=== PATIENT | female | born 1990 | race Caucasian/White ===

== ENCOUNTER 2024-02-24 15:36 | Outpatient (OUT) | payer BC, SELFPAY ==
[2024-02-24 16:03] LABS: HCG Qualitative POSITIVE (NEGATIVE)
[2024-02-24 16:04] LABS: Internal Control Within Normal Limits
[2024-02-24 16:49] LABS: HCG Quantitative 23627 mIU/mL
== END 2024-02-24 15:37 | disposition home or self-care (01) ==
PROVIDERS: PCP Nurse Practitioner Family; Visit Provider Nurse Practitioner Family
DX: N91.2 Amenorrhea, unspecified (principal)
CPT/HCPCS: 36415; 84702; 84703

== ENCOUNTER 2025-03-15 14:39 | Outpatient (OUT) | payer BC, SELFPAY ==
--- OUTSIDE RECORDS SUMMARY | 2025-03-15 14:43 | XMS_ITS | Clinical Summary ---
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 Name Role Phone Amy Kingsley DIRECTOR OF INSTITUTIONAL RESEARCH Primary Care Provider Allergies No known active allergies Medications MedicationSigDispense QuantityRefillsLast FilledStart DateEnd DateStatus albuterol HFA 90 mcg/act inhaler INHALE 2 PUFFS BY MOUTH 4 TIMES A DAY MINOMU4803/23/2023ctive MV & Min w/FA-DHA ( GUMMIES PO) Take by mouthActive triamcinolone (Kenalog) 0.1 % cream Indications:Vaginal dischargeApply topically 2 (two) times a day 30 g ctive nystatin (Mycostatin) 720990 UNIT/GM powder Indications:IntertrigoApply topically 3 (three) times a day 15 g ctive nystatin (Mycostatin) cream Indications:IntertrigoApply topically 2 (two) times a day 30 g ctive ferrous sulfate (Fe Tabs) 325 (65 Fe) MG EC tablet Indications:Anemia, unspecified typeDo not crush, chew, or split. 30 tablet 5Active norgestimate-ethinyl estradiol (Sprintec 28) 0.25-35 MG-MCG tablet Indications:Encounter for contraceptive management, unspecified typeTake 1 tablet by mouth Daily 28 tablet 121/597119ctive Encounters DateTypeDepartmentCare ZidiEvowqerqjym65/15/2025Telephone [facility] [address] [place] [address] Renita Funk MD 12/15/2024 10:45 AM EDTOffice Visit [facility] [place] [facility] [address] [place] [address] Renita Funk MD Acute postoperative pain; Incisional pain12/15/2024Travelfrom Last 3 Months Family History Medical HistoryRelationNameCommentsDiabetesFatherGeorgeHypertension (CMS/HCC) FatherGeorgeCancerMaternal GrandfatherMarvinCOPDMaternal GrandmotherAsthmaMother RobinCancerMotherRobinDiabetesMotherRobinLung cancerMotherRobinHeart disease Paternal GrandfatherCancerPaternal GrandmotherInathyroid issuesPaternal GrandmotherInaRelationNameStatusCommentsFatherGeorgeMaternal GrandfatherMarvin Maternal GrandmotherMotherRobinPaternal GrandfatherPaternal GrandmotherIna Social History Tobacco UseTypesPacks/DayYears UsedDateSmoking Tobacco: NeverSmokeless Tobacco: Never Tobacco Cessation:Counseling Given: Not Answered Alcohol UseStandard Drinks/WeekCommentsNot Currently0 (1 standard drink = 0.6 oz pure alcohol)Caffeine intake: 1 soda dailyEdinburgh Depression Scale AnswerDate RecordedEdinburgh Depression Scale Rwccp462The thought of harming myself has occurred to me.Never11/10/2024CommentsNo Sex and Gender InformationValueDate RecordedSex Assigned at BirthNot on file Legal UjlCilobg42/14/2024 8:08 AM ESTGender IdentityNot on fileSexual OrientationNot on fileOccupationIndustryJob Start DateJob End DateNot on fileNot on fileNot on fileNot on file Last Filed Vital Signs Vital SignReadingTime TakenCommentsBlood Qxohapph965/72012/15/2024 10:56 AM EDT Pulse--Temperature--Respiratory Rate--Oxygen Saturation--Inhaled Oxygen Concentration--Zlbwby280 kg (230 lb)12/15/2024 10:56 AM TYOOrexzy509.7 cm (5' 8 )12/15/2024 10:56 AM EDTBody Mass Index34.9709/06/2024 10:56 AM EDT Plan of Treatment DateTypeDepartmentCare Team (Latest Contact Info)Puekwyovqpu27/16/2025 2:30 PM ESTOffice Visit [facility] [place] [facility] [address] [place] [address] Renita Funk MD [address] [place] [address] Health MaintenanceDue DateLast DoneCommentsPap Smear2011Cervical Cancer Mnrauivkn72/26/2020HPV/Cempgi3802/07/2020COVID-19 Vaccine ( season) 509/12/2021, 02/07/2021, 05/24/2020, Additional history existsInfluenza Vaccine (#1)/, 01/13/2023, 01/18/2022, Additional history existsPneumococcal Vaccine: Pediatrics (0 to 5 Years) and At-Risk Patients (6 to 64 Years)Aged OutNo longer eligible based on patient's age to complete this topic Insurance Care Teams Team MemberRelationshipSpecialtyStart DateEnd Date Amy Kingsley NP [address] [place] [id number] [facility] Ijk[facility]lnem74/21/24
--- OUTSIDE RECORDS SUMMARY | 2025-03-15 14:49 | XMS_ITS | CCD ---
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 Name Role Phone REQUEST, NONE LISTED Admitting Unavailable CHEYENNE PABLO Consulting Unavailable REQUEST, NONE LISTED Attending Unavailable REQUEST, NONE LISTED Attending Unavailable REQUEST, NONE LISTED Consulting Unavailable REQUEST, NONE LISTED Admitting Unavailable Mell Krysta Unavailable Diogenes Payton Unavailable Sancho SHANNON, Amy Lorenzana Primary Care Provider Amy Kingsley APRN Primary Care Provider Renita Young MD Attending Provider [phone] Renita Young MD Referring Provider [phone] NON STAFF Primary Care Provider Unavailjak e Renita Young MD Admit Provider Hannah Jimenez MD Referring Provider Mani Rowell MD Attending Provider Renita Young MD Attending Provider Amy Kingsley APRN Primary Care Provider Kassandra Pathak MD Attending Provider [phone] Amy Kingsley Primary Care Unavailable Mani Rowell Admitting Unavailable Mani Rowell Attending Unavailable Kassandra Pathak Admitting Unavailable Kassandra Pathak Attending Unavailable Amy Kingsley Primary Care Unavailable Amy Kingsley Primary Care Unavailable Renita Young Admitting Unavailable Renita Young Attending Unavailable Renita Young Referring Unavailable Amy Kingsley Primary Care Unavailable Hannah Jimenez Referring Unavailable Young, Penola P Attending Unavailable Young, Penola P Admitting Unavailable NON STAFF Primary Care Unavailable Hector, Penola Margarita Attending Unavailable Hector, Penola P Admitting Unavailable Hector, Penola P Admitting Unavailable Hector, Penola P Attending Unavailable HECTOR, PENOLA P Attending Unavailable HECTOR, PENOLA P Attending Unavailable HECTOR, PENOLA P Attending Unavailable HECTOR, PENOLA P Attending Unavailable HECTOR, PENOLA P Attending Unavailable HECTOR, PENOLA P Attending Unavailable HECTOR, PENOLA P Attending Unavailable HECTOR, PENOLA P Attending Unavailable HECTOR, PENOLA P Attending Unavailable HECTOR, PENOLA P Attending Unavailable HECTOR, PENOLA P Referring Unavailable HECTOR, PENOLA P Attending Unavailable HECTOR, PENOLA P Attending Unavailable HECTOR, PENOLA P Attending Unavailable HECTOR, PENOLA P Attending Unavailable HECTOR, PENOLA P Attending Unavailable HECTOR, PENOLA P Attending Unavailable HECTOR, PENSAY P Attending Unavailable Medications Current Medications MedicationDrug Class(es)DatesSig (Normalized)Sig (Original)[id number] 200 actuat albuterol 0.09 mg/actuat metered dose inhaler (20 sources)beta2-Adrenergic AgonistStart: 13-50-6597uqol 2 puff(s) by mouth four times daily as neededalbuterol HFA 90 mcg/act inhaler INHALE 2 PUFFS BY MOUTH 4 TIMES A DAY NEEDED 03/23/2023 ActiveStart: 88-67-6052lipe 2 puff(s) by inhalation four times daily as neededAlbuterol Sulfate HFA 108 (90 Base) MCG/ACT 2 puffs Inhalation 4 times a day prn Mar, Activecephalexin 500 mg oral capsule (4 sources)Cephalosporin AntibacterialStart: 10-13-2024 End: 32-99-0939rdqxqiqbgw (Keflex) 500 MG capsule Indications: Acute postoperative pain Take 1 capsule (500 mg) bymouth in the morning and 1 capsule (500 mg) at noon and 1 capsule (500 mg) in the evening and 1 capsule (500 mg) before bedtime. Do all this for 10 days. 40 capsule 10/13/2024 10/23/2024 Active 12 hr dextromethorphan polistirex 6 mg/ml extended release suspension (1 source)Uncompetitive Z-voastx-R-aspartate Receptor Antagonist, Sigma-1 Agonisttake 10 mL by mouth every twelve hours as neededDelsym 30 MG/5ML 10 mL as needed Orally every 12 hrs Activedoxycycline hyclate 100 mg oral tablet (1 source)Tetracycline-class DrugStart: 36-81-7208zhxk 1 tablet by mouth every twelve hoursDoxycycline Hyclate 100 MG 1 tablet Orally Twice a day for 10 day(s) Mar, Activeethinyl estradiol 0.035 mg / norgestimate 0.25 mg oral tablet (1 source)Progestin, EstrogenStart: 01-26-2025 End: 97-17-4443liea 1 tablet by mouth once dailynorgestimate-ethinyl estradiol (Sprintec 28) 0.25-35 MG-MCG tablet Indications: Encounter for contraceptive management, unspecified type Take 1 tablet by mouth Daily 28 tablet 12 01/26/2025 01/26/2026 Activeferrous sulfate 325 mg oral tablet (20 sources)Start: 63-96-4618kncx 1 tablet by mouth once dailyStart: 07-13-2024 ferrous sulfate (Fe Tabs) 325 (65 Fe) MG EC tablet Indications: Anemia, unspecified type Do not crush, chew, or split. 30 tablet 11 07/13/2024 Active ibuprofen 800 mg oral tablet (2 sources)Nonsteroidal Anti-inflammatory DrugStart: 57-21-4850otrjixytwybhu 0.35 mg oral tablet (5 sources)Start: 11-10-2024 End: 78-34-8228ktjo 1 tablet by mouth once dailynorethindrone (Micronor) 0.35 MG tablet Indications: General counseling and advice on contraceptivemanagement Take 1 tablet (0.35 mg) by mouth Daily 28 tablet 11 11/10/2024 01/26/2025 Discontinuednystatin 100 unt/mg topical powder (20 sources)Polyene AntifungalStart: 05-11-2024 End: 64-15-2110eozcbclc (Mycostatin) cream Indications: Intertrigo Apply topically 2 (two) times a day 30 g 2 05/11/2024 05/11/2025 ActiveStart: 05-11-2024 End: 09-05-1959ferpghaa (Mycostatin) 424097 UNIT/GM powder Indications: Intertrigo Apply topically 3 (three) timesa day 15 g 05/11/2024 05/11/2025 ActivepredniSONE 20 mg oral tablet (1 source)Start: 79-26-0214risp 2 tablets by mouth once daily at mealtime predniSONE 20 MG 2 tablets with food or milk Orally Once a day for 5 days Mar, ActivePrenatal Oaydyiym-Lts-Qo-Fa 1 mg tablet (2 sources)Start: 88-11-0168luja 1 tablet by mouth oncePrenatal MV & Min w/FA- DHA ( GUMMIES PO) (20 sources) MV & Min w/FA-DHA ( GUMMIES PO) Take by mouth Activetriamcinolone acetonide 1 mg/ml topical cream (20 sources)CorticosteroidStart: 19-96-7579hsfdtukufhnqt (Kenalog) 0.1 % cream Indications: Vaginal discharge Apply topically 2 (two) times a day 30 g 2 03/29/2024 Active Completed/Discontinued Medications MedicationDrug Class(es)DatesSig (Normalized)Sig (Original)rho(d) immune globulin, human 1500 unt prefilled syringe (2 sources)Human Immunoglobulin GStart: 06-15-2024 End: 09-04-4536lft,D, immune globulin (RhoGAM Ultra-Filtered Plus) 1500 units injection Indications: Blood typing encounter , Rh negative status during in second trimester Inject 1 mL (1,500 Units) into the shoulder, thigh, or buttocks 1 (one) time for 1 dose 300mcg as directed per rhogam workup 1 mL 06/15/2024 06/15/2024 Problems Problem ClassificationProblemDateDocumented DateEpisodic/Chronic Administrative/social admission (14 sources)Patient encounter status; Translations: [Encounter for blood-alcohol and blood-drug test]75-77-9943LzvwkvquDawheji obstructive pulmonary disease and bronchiectasis (1 source)Bronchitis, not specified as acute or chronicEpisodicComplications of surgical procedures or medical care (2 sources)Wound pain ; Translations: [Other postprocedural complications of skin and subcutaneous tissue]73-13-0359RvhvjqjsHduufijiuz and other anemia (16 sources)Anemia; Translations: [Anemia, unspecified]55-46-1434Nvuiuklk Hemorrhage during ; abruptio placenta; placenta previa (7 sources)Bleeding from female genital tract during ; Translations: [Antepartum hemorrhage, unspecified, unspecified trimester]47-49-9024Klkwhiht Menstrual disorders (4 sources)Amenorrhea; Translations: [Amenorrhea, unspecified]16-33-7478Qhgxmez Other complications of ; puerperium affecting management of mother (1 source)Hypogalactia; 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]Onset: 86-48-9437Byzpfwvp Other complications of (18 sources)RhD negative; Translations: [Other specified related conditions, second trimester]76-20-0733IkjgmvqsWjwqg complications of (1 source)Other abnormal findings on screening of mother; Translations: [Other abnormal findings onantenatal screening of mother]Onset: 46-85-9093NfzjjkinWntfg ear and sense organ disorders (1 source)Impacted cerumen, left earEpisodicOther female genital disorders (2 sources)Vaginal discharge; Translations: [Other specified noninflammatory disorders of vagina]75-51-5485AqofhjelOxwua inflammatory condition of skin (20 sources)Intertrigo; Translations: [Erythema intertrigo]17-39-0590Meobmfxz Other nervous system disorders (8 sources)Acute postoperative pain; Translations: [Other acute postprocedural pain]00-54-5900QnjaslcmUbxnn and delivery including normal (20 sources)Normal ; Translations: [Encounter for supervision of normal first , first trimester]Onset: 644447-50-7293BwqbrnhcJaxrx screening for suspected conditions (not mental disorders or infectious disease) (1 source)Encounter for screening for Streptococcus B; Translations: [Encounter for screening for Streptococcus B]Onset: 05-61-1156Fjtioivk Residual codes; unclassified (2 sources)Gestation period, 12 weeks; Translations: [12 weeks gestation of ]75-00-6844ZqmxykzdRbvsbbwl codes; unclassified (2 sources)Gestation period, 16 weeks; Translations: [16 weeks gestation of ]86-40-3526YifvpuerJnqrexjn codes; unclassified (2 sources)Gestation period, 18 weeks; Translations: [18 weeks gestation of ]62-74-0179DbslfsbmGrmoixtp codes; unclassified (2 sources)Gestation period, 19 weeks; Translations: [19 weeks gestation of ]36-17-7056UgludidmAfbhmnmw codes; unclassified (2 sources)Gestation period, 23 weeks; Translations: [23 weeks gestation of ]97-51-2378XlmalnneHftmnmbx codes; unclassified (2 sources)Gestation period, 27 weeks; Translations: [27 weeks gestation of ]50-69-4933TwcljuhyDfsizrpc codes; unclassified (2 sources)Gestation period, 30 weeks; Translations: [30 weeks gestation of ]31-12-6262FelowxbiWryyzdzl codes; unclassified (2 sources)Gestation period, 32 weeks; Translations: [32 weeks gestation of ]41-20-7998WjkyjtneEogczbnb codes; unclassified (2 sources)Gestation period, 34 weeks; Translations: [34 weeks gestation of ]79-60-5133PrhhfqeeIzvanozq codes; unclassified (5 sources)Gestation period, 36 weeks; Translations: [36 weeks gestation of ]03-48-3910AbsuboftTggdsdau codes; unclassified (3 sources)Gestation period, 37 weeks; Translations: [37 weeks gestation of ]44-05-7208WgfrhjtrBnourkei codes; unclassified (7 sources)Gestation period, 39 weeks; Translations: [39 weeks gestation of ]65-83-0439PgazeigsGrcqjsej codes; unclassified (2 sources)Gestation period, 7 weeks; Translations: [Less than 8 weeks gestation of ]41-42-7170WrsuduftDlqxwcoe codes; unclassified (1 source)39 weeks gestation of ; Translations: [39 weeks gestation of ]Onset: 85-24-1473Czgzwdwm Results Test NameValueInterpretationReference RangeFacilityBasophils [#/volume] in Blood by Automated countOrdered By: HUI Young on 38-04-6369Dqvzbpmpl (Bld) [#/Vol]0.1 10*3/uLNormal0.0-0.2FBarnesville HospitalComment on above:Result Comment: PERFORMED BY: [facility] [address] [place] [address] PATHOLOGIST STUDIO SALES ASSOCIATE ELINA DURBIN M.D.Performed By: #### CBC #### [facility] [address] [place] [id number] USABasophils/100 leukocytes in Blood by Automated count Ordered By: HUI Young on 76-01-6807Mnsghrtee/100 WBC (Bld)0.6 %Normal .[facility] CenterComment on above:Performed By: #### CBC #### [facility] [address] [id number] USACBC W Auto Differential panel (Bld)on 61-27-0033Fmzusmlmw (Bld) [#/Vol]0.1 10*3/uL0.0 - 0.2 10*3/uLNOMS HealthcareBasophils/100 WBC Manual cnt (Syn fld)0.6 %.[facility] Wal[facility] LawnEosinophils (Bld) [#/Vol]0 10*3/uL0.0 - 0.45 10*3/uLNOMS HealthcareEosinophils/100 WBC Manual cnt (Syn fld)0 %.[facility] Wal[facility] LawnErythrocyte distribution width (RBC) [Ratio]14.7 %11.9 - 15.3 %[facility] LawnHematocrit (Bld) [Volume fraction]35.8 %34.0 - 46.4 %[facility] Hemoglobin (Bld) [Mass/Vol]12.1 g/dL11.8 - 15.4 g/dLCox Walnut Lawn Interpretation and review of laboratory resultsAbnormalCox Walnut Lawn Lymphocytes (Bld) [#/Vol]1.1 10*3/uL1.00 - 4.8 10*3/uLNOSt. Louis VA Medical Center Lymphocytes/100 WBC Manual cnt (Syn fld)6.3 %.[facility] HospitalH (RBC) [Entitic mass]29.7 pg24.7 - 34.3 pgCox Walnut LawnMCHC (RBC) [Mass/Vol]33.7 g/dL32.0 - 35.0 g/dLSaint Luke's East HospitalV (RBC) [Entitic vol]88.2 fL80 - 100 fLNOMS Healthcare Monocytes (Bld) [#/Vol]0.4 10*3/uL0.0 - 0.8 10*3/uLNOMS Healthcare Monocytes+Macrophages/100 WBC Manual cnt (Syn fld)2.3 %.[facility] Neutrophils (Bld) [#/Vol]16.5 10*3/uLHigh1.8 - 7.7 10*3/uLNOMS Healthcare Neutrophils/100 WBC Manual cnt (Syn fld)90.8 %.NOMS HealthcareNRBC0.1 /100{WBC}0 - 0.5 /100{WBC}NOMS HealthcarePlatelet mean volume (Bld) [Entitic vol]11.1 fL High6.3 - 10.7 fLNOSC HealthcarePlatelets (Bld) [#/Vol]206 10*3/uL150 - 450 10*3/uLNOSC HealthcareRBC LM.HPF (Urine sed) [#/Area]4.06 10*6/uL3.60 - 5.00 10*6/uLNOMS HealthcareWBC (Bld) [#/Vol]18.1 10*3/uLHigh3.8 - 11.6 10*3/uLNOMS HealthcareWBC LM.HPF (Urine sed) [#/Area]18.1 [CFU]/mLHigh3.8 - 11.6 [CFU]/mL [facility] HealthcareComplete Blood Count Auto Diffon 08-04-9250Csfi Corpuscular HGB Conc33.7 g/tSEnlcqn06.0-35.0The [facility] Physician GroupComment on above:Performed By: #### CBC #### [facility] [address] [place] [address] USANRBC%0.1 /100{WBC}Normal0-0.5The [facility] Comment on above:Performed By: #### CBC #### [facility] [address] [place] [address] USAWhite Blood Count18.1 [CFU]/mLHigh3.8-11.6The [facility] Physician GroupComment on above:Performed By: #### CBC #### [place] [address] USAEosinophils [#/volume] in Blood by Automated countOrdered By: HUI Young on 81-92-8628Mexphaubbbz (Bld) [#/Vol]0.0 10*3/uLNormal 0.0-0.45[facility] CenterComment on above:Performed By: #### CBC #### [place] [address] USAEosinophils/100 leukocytes in Blood by Automated count Ordered By: HUI Young on 45-27-6363Cldsllhpeod/100 WBC (Bld)0.0 % Normal.[facility] CenterComment on above:Performed By: #### CBC #### [place] [address] USAErythrocyte distribution width [Ratio] by Automated count Ordered By: HUI Young on 25-56-0650Ylctvxdxwzj distribution width (RBC) [Ratio]14.7 %Dpawms80.9-15.3FBarnesville HospitalComment on above:Performed By: #### CBC #### [place] [address] USAErythrocytes [#/volume] in Blood by Automated countOrdered By: HUI Young on 64-67-0320FDF (Bld) [#/Vol]4.06 10*6/uLNormal 3.60-5.00[facility] CenterComment on above:Performed By: #### CBC #### [place] [address] USAHematocrit [Volume Fraction] of Blood by Automated count Ordered By: HUI Young on 47-27-0759Biscyzcrwd (Bld) [Volume fraction] 35.8 %Rcchim70.0-46.4FBarnesville HospitalComment on above:Performed By: #### CBC #### [place] [address] USAHemoglobin [Mass/volume] in BloodOrdered By: HUI Young on 24-90-3366Ttbirkybzb (Bld) [Mass/Vol]12.1 g/sEHhdzyt66.8-15.4 [facility] CenterComment on above:Performed By: #### CBC #### [place] [address] USALeukocytes [#/volume] corrected for nucleated erythrocytes in Blood by Automated counOrdered By: HUI Young on 09-36-0646NVB corrected for nucl RBC Auto (Bld) [#/Vol]18.1 10*3/uLHigh3.8-11.6FBarnesville HospitalLeukocytes [#/volume] in Blood by Automated countOrdered By: HUI Young on 80-65-4441MUH (Bld) [#/Vol]18.1 10*3/uLHigh3.8-11.6 [facility] CenterComment on above:Performed By: #### CBC #### [place] [address] USALymphocytes [#/volume] in Blood by Automated countOrdered By: HUI Young on 47-38-8347Zmsqgvnvnpg (Bld) [#/Vol]1.1 10*3/uLNormal 1.00-4.8[facility] CenterComment on above:Performed By: #### CBC #### [place] [address] USALymphocytes/100 leukocytes in Blood by Automated count Ordered By: HUI Young on 25-39-7595Arywqqqkipg/100 WBC (Bld)6.3 % Normal.[facility] CenterComment on above:Performed By: #### CBC #### [place] [address] USAMCH [Entitic mass] by Automated countOrdered By: HUI Young on 34-47-1671HRU (RBC) [Entitic mass]29.7 djCkiaqb64.7-34.3 [facility] CenterComment on above:Performed By: #### CBC #### [place] [address] USAMCHC Auto (RBC) [Mass/Vol]Ordered By: HUI Young on 92-47-2694NRMS (RBC) [Mass/Vol]33.7 g/dL32.0-35.0[facility] CenterMCV [Entitic volume] by Automated countOrdered By: HUI Young on 82-39-9165BEF (RBC) [Entitic vol]88.2 aLNwaljo01-661NwcukwkigPremier Health Upper Valley Medical CenterComment on above:Performed By: #### CBC #### [facility] [address] [place] [address] USAMonocytes [#/volume] in Blood by Automated countOrdered By: HUI Young on 27-40-4178Painpjztv (Bld) [#/Vol]0.4 10*3/uLNormal 0.0-0.8[facility] CenterComment on above:Performed By: #### CBC #### [facility] [address] [place] [address] USAMonocytes/100 leukocytes in Blood by Automated count Ordered By: HUI Young on 20-97-6146Mwjftpwwu/100 WBC (Bld)2.3 %Normal .[facility] CenterComment on above:Performed By: #### CBC #### [facility] [address] [place] [address] USANeutrophils [#/volume] in Blood by Automated countOrdered By: HUI Young on 39-75-7816Lfvmzgzzqze (Bld) [#/Vol]16.5 10*3/uLHigh 1.8-7.7FBarnesville HospitalComment on above:Performed By: #### CBC #### [facility] [address] [place] [address] USANeutrophils/100 leukocytes in Blood by Automated count Ordered By: HUI Young on 48-30-5241Qfrmrinrtar/100 WBC (Bld)90.8 % Normal.[facility] CenterComment on above:Performed By: #### CBC #### [facility] [address] [place] [id number] USANucleated erythrocytes [Presence] in Blood by Automated countOrdered By: HUI Young on 67-60-4679Mbzzbfadh RBC Auto Ql (Bld) 0.1 /100{WBC}0-0.5FBarnesville HospitalPlatelet mean volume [Entitic volume] in Blood by Automated countOrdered By: HUI Young on 61-28-1440Hdvendhl mean volume (Bld) [Entitic vol]11.1 fLHigh6.3-10.7FBarnesville HospitalComment on above:Performed By: #### CBC #### [facility] [address] [place] [address] USAPlatelets [#/volume] in Blood by Automated countOrdered By: HUI Young on 62-33-8861Vmsirkfld (Bld) [#/Vol]206 10*3/uLNormal 150-450[facility] CenterComment on above:Performed By: #### CBC #### [facility] [address] [place], [place] [address] USARFX RhoGAM Screenon 83-06-2781AWS RhoGAM ScreenNegativeJackson West Medical Center Physician Alliance HospitalComment on above:Order Comment: dupeRFX RhoGAM Vials Indicatedon 10-08-2642QGN RhoGAM Vials Indicated1 Dose NormalLarkin Community Hospital Physician GroupComment on above:Result Comment: 1 vial of RhoGAM is equivalent to 300 mcg. 1 vial will suppress alloimmunization by 15 mL of red cells or 30 mL of whole blood.RHOGAM DOSEon 22-01-9379WFKCGU DOSEPost PartumNormalLarkin Community Hospital Physician GroupComment on above:Result Comment: PERFORMED BY: [place] [address] PATHOLOGIST STUDIO SALES ASSOCIATE ELINA DURBIN M.D.Rhogam Workupon 00-25-0119Aenudo CandidateYeNemours Children's Clinic Hospital Physician GroupComment on above:Order Comment: dupeResult Comment: This result is part of the RhoGAM Workup Order. This order, and result, initiates the Outpatient RhoGAM Protocol ID#: [id number].[id number] and Rh group Nom (Bld)Blood group B Rh(D) negative [facility] Physician GroupComment on above:Order Comment: Emilie 10-01-2024 Specimen: [id number] Received: 10/04/24 Status: TRACEY Shelton Num: [id number] Spec Type: Surgical Subm Dr: HUI Brandon Tissues: A Placenta - 3rd Trimester (Greater than 28 weeks) (PLACENTA) Procedures: José Miguel HORNE/Darius Chamorro Age/ Patient Sex Location Account Attending Physician Kerri Caceres 34/F 3S [id number] HUI Brandon SPEC NUM: [id number] RECD: 10/04/24 STATUS: TRACEY RENDONArnaldo NUM: [id number] BRENDA: 10/01/[address]: Renita Young MD-NOMS ENTERED: 10/04/[address] [facility] [address]: SPEC TYPE: Surgical DEPT: S ENTERED BY: [id number] RECV BY: [id number] ORDERED: HE/3, Gross/Micro L5 ORDERED: HE/3, Gross/Micro L5 Pathological Diagnosis Placenta cord and membranes: Third trimester placenta with no pathologic diagnosis. 88 [id number] Clinical Information Gestational age of 39 weeks and 2 days, group B streptococcus positive, failure to progress Gross Description Part A is received in formalin labeled with the patients name, date of , and placenta : Single MEMBRANES: Placenta Sac Rupture (cm from margin): Indeterminate, 30% disrupted Color: Blue-campbell Other Characteristics: No Insertion Site: Marginal 100% CORD: Appearance: Unremarkable Site of Insertion: Eccentric, 4.5 cm from the margin Length Diameter (cm): 27.5 x 1.3 cm Number of revolutions: 11 Specimen: [id number] Received: 10/04/24 Status: TRACEY Nikita Num: [id number] Spec Type: Surgical Subm Dr: Renita Young MD-NOMS Tissues: A Placenta - 3rd Trimester (Greater than 28 weeks) (PLACENTA) Procedures: HE/3, Gross/Micro L5 Patient: Kerri Caceres [id number] (Continued) Specimen: [id number] Received: 10/04/24 (Continued) Gross Description (Continued) Signed (signature on file) Elina Durbin MD 10/06/24 1038 Specimen: [id number] Received: 10/04/24 Status: TRACEY Shelton Num: [id number] Spec Type: Surgical Subm Dr: Renita Young MD-NOMS Tissues: A Placenta - 3rd Trimester (Greater than 28 weeks) (PLACENTA) Procedures: José Miguel HORNE/Darius Chamorro Patient: Felicia Caceresica [id number] (Continued) Specimen: [id number] Received: 10/04/24 (Continued) Gross Description (Continued) True Knots: No Number of vessels: 3 GENERAL: Trimmed Weight (grams): 524 g Complete: Yes Size 1 x Size 2 x Size 3 (cm): 22 x 16.5 x 2.5 cm Accessory Lobe(s): No PLACENTAL DISK: Color of Surface: Blue-campbell Sub-amniotic Cyst: No Amnion Nodosum: No Subchorionic Fibrin: Yes, up to 0.2 cm in thickness, less than 5% Appearance of Cut Surface: There is a single, paramarginally located, 1.3 cm in greatest dimension thrombus (less than 5%). Maternal floor: Unremarkable Retroplacental hematoma: No Cassettes: A1 Rolled membrane, two sections of cord A2-A3 [employer] sections of placenta (to include thrombus in A2) (3, , H57-2547 A) JG . Specimen: [id number] Received: 10/04/24 Status: TRACEY Shelton Num: [id number] Spec Type: Surgical Subm Dr: Renita Young MD-NOMS Tissues: A Placenta - 3rd Trimester (Greater than 28 weeks) (PLACENTA) Procedures: HE/3, Gross/Micro L5 Patient: Kerri Caceres [id number] (Continued) Signed (signature on file) Elina Durbin MD 10/06/[address] [place] [address] Physician GroupRPR W/RFX TO QUANT & TP ABS ([facility])on 61-77-8028JCL INTERPRETATIONComment.[facility] HealthcareComment on above:Syphilis: RPR with Reflex to RPR Titer and Treponemal Antibodies, Traditional Screening and Diagnosis Algorithm Treponemal RPR RPR, Qn Ab Final Interpretation -------- --------- Non N/A N/A No laboratory evidence Reactive of syphilis. Retest in 2-4 weeks if recent exposure us suspected. -------- --------- Reactive >/=1:1 Non Nontreponemal antibodies Reactive detected. Syphilis unlikely; biological false positive possible. Retest in 2-4 weeks if recent exposure is suspected. -------- --------- Reactive >/=1:1 Reactive Treponemal and nontreponemal antibodies detected. Consistent with past or current (potential early) syphilis. Performed at: [facility] [id number] Executive Sales Manager: Vitaliy Lee PhD, Phone: [phone] RPR, RFX QUANT RPRNon-ReactiveNon ReactiveMaria Parham Health Amphetamine Screen Ql (U)Ordered By: HUI Young on 09-30-2024 Amphetamines Ql (U)NegativeNegWayne HospitalAppearance of UrineOrdered By: HUI Young on 33-22-1619Zuqcfkxoyp (U)Cloudy Critically abnormalCleSouthview Medical CenterComment on above:Order Comment: Name Collection Type:: Clean-Voided MidstreamPerformed By: #### JUNAID GALLEGOS CUU #### [facility] [address] [place] [address] USABacteria [Presence] in Urine by AutomatedOrdered By: ROVERTO Young on 66-34-7407Idtndjbo Auto Ql (U)3+ [HPF]HighNone Seen [facility] Medical CenterBarbiturates [Presence] in Urine by Screen methodOrdered By: HUI Young on 05-57-4511Qhbdxotyxtnq Screen Ql (U) NegativeNegativePremier Health Upper Valley Medical CenterBenzodiazepines Screen Ql (U) Ordered By: HUI Young on 42-65-5859Bkhcoxeiazwxnwh Ql (U)Negative NegativePrem[facility] Health [facility] Valley Medical CenterBenzoylecgonine [Presence] in Urine by Screen methodOrdered By: HUI Young on 80-79-0848Yhjzonsrhavjdxl Screen Ql (U)NegativeNegativePremier Health Upper Valley Medical CenterBilirubin Test strip Ql (U)Ordered By: HUI Young on 38-19-3122Vugusocbd Ql (U) NegativeNegativePremier Health Upper Valley Medical CenterCB W Auto Differential panel (Bld)on 48-58-8046Gpfxfyenn (Bld) [#/Vol]0.1 10*3/uL0.0 - 0.2 10*3/uLNOMS HealthcareBasophils/100 WBC Manual cnt (Syn fld)0.5 %.[facility] HealthcareEosinophils (Bld) [#/Vol]0 10*3/uL0.0 - 0.45 10*3/uLNOMS HealthcareEosinophils/100 WBC Manual cnt (Syn fld)0.3 %.[facility]wnErythrocyte distribution width (RBC) [Ratio]14.4 %11.9 - 15.3 %[facility] LawnHematocrit (Bld) [Volume fraction]35.2 %34.0 - 46.4 %[facility] LawnHemoglobin (Bld) [Mass/Vol]12 g/dL11.8 - 15.4 g/dL [facility] LawnInterpretation and review of laboratory resultsAbnormalCox Walnut LawnLymphocytes (Bld) [#/Vol]1.9 10*3/uL1.00 - 4.8 10*3/uLNOMS Healthcare Lymphocytes/100 WBC Manual cnt (Syn fld)20.3 %.[facility] HospitalH (RBC) [Entitic mass]29.8 pg24.7 - 34.3 pgSaint Luke's East HospitalHC (RBC) [Mass/Vol]34.2 g/dL32.0 - 35.0 g/dLSaint Luke's East HospitalV (RBC) [Entitic vol]87.2 fL80 - 100 fLGUNNISON VALLEY HOSPITAL Healthcare Monocytes (Bld) [#/Vol]0.8 10*3/uL0.0 - 0.8 10*3/uLNOMS Healthcare Monocytes+Macrophages/100 WBC Manual cnt (Syn fld)8.6 %.[facility] Neutrophils (Bld) [#/Vol]6.7 10*3/uL1.8 - 7.7 10*3/uLNOMS Healthcare Neutrophils/100 WBC Manual cnt (Syn fld)70.3 %.NOMS HealthcareNRBC0.1 /100{WBC}0 - 0.5 /100{WBC}NOMS HealthcarePlatelet mean volume (Bld) [Entitic vol]11.7 fL High6.3 - 10.7 fLNOMS HealthcarePlatelets (Bld) [#/Vol]223 10*3/uL150 - 450 10*3/uLNOMS HealthcareRBC LM.HPF (Urine sed) [#/Area]4.04 10*6/uL3.60 - 5.00 10*6/uLNOMS HealthcareWBC (Bld) [#/Vol]9.6 10*3/uL3.8 - 11.6 10*3/uLNOMS HealthcareWBC LM.HPF (Urine sed) [#/Area]9.6 [CFU]/mL3.8 - 11.6 [CFU]/mLNOMS HealthcareMS HealthcareColor of Urine by AutoOrdered By: HUI Young on 36-91-5277Mbdab (U)YellowToledo HospitalComment on above:Order Comment: Name Collection Type:: Clean-Voided MidstreamPerformed By: #### ADDONUAPLUS, OBUDS, CUU #### [facility] [address] [place] [address] USAComplete Blood Count Auto Diffon 44-20-4712Axuhhrnqy (Bld) [#/Vol]0.1 10*3/uLNormal0.0-0.2The [facility] Physician GroupComment on above: Result Comment: PERFORMED BY: [facility] [address] [place] [address] PATHOLOGIST STUDIO SALES ASSOCIATE ELINA DURBIN M.D.Performed By: #### RPR W RFX ####[facility] ,#### CBC ####[facility] [address] [place] [address] [place] Basophils/100 WBC (Bld)0.5 %Normal.The [facility] Physician GroupComment on above:Performed By: #### RPR W RFX ####[facility] ,#### CBC ####[place] [address] [place] Eosinophils (Bld) [#/Vol]0.0 10*3/uLNormal0.0-0.45The [facility] Comment on above:Performed By: #### RPR W RFX ####[facility] ,#### CBC ####[address] Eosinophils/100 WBC (Bld)0.3 %Normal.The [facility] Physician GroupComment on above:Performed By: #### RPR W RFX ####[facility] ,#### CBC ####[address] Erythrocyte distribution width (RBC) [Ratio]14.4 %Lrbaty03.9-15.3The [facility] Physician GroupComment on above:Performed By: #### RPR W RFX ####[facility] ,#### CBC ####[place] [address] USAHematocrit (Bld) [Volume fraction]35.2 %Normal 34.0-46.4The [facility] Physician GroupComment on above:Performed By: #### RPR W RFX ####[facility] ,#### CBC ####[place] [address] USAHemoglobin (Bld) [Mass/Vol]12.0 g/dLNormal 11.8-15.4The [facility] Physician GroupComment on above:Performed By: #### RPR W RFX ####[facility] ,#### CBC ####[place] [address] USALymphocytes (Bld) [#/Vol]1.9 10*3/uLNormal 1.00-4.8The [facility] Physician GroupComment on above:Performed By: #### RPR W RFX ####[facility] ,#### CBC ####[place] [address] USALymphocytes/100 WBC (Bld)20.3 %Normal.The [facility] Physician GroupComment on above:Performed By: #### RPR W RFX ####[facility] ,#### CBC ####[address] (RBC) [Entitic mass]29.8 wjFnliec87.7-34.3The [facility] Physician GroupComment on above:Performed By: #### RPR W RFX ####[facility] ,#### CBC ####[address]V (RBC) [Entitic vol]87.2 iFGopsif89-359Sax [facility] Physician GroupComment on above:Performed By: #### RPR W RFX ####[facility] ,#### CBC ####[place] [address] USAMean Corpuscular HGB Conc34.2 g/eTKngyeh75.0-35.0The [facility] Physician GroupComment on above:Performed By: #### RPR W RFX ####[facility] ,#### CBC ####[place] [address] USAMonocytes (Bld) [#/Vol]0.8 10*3/uLNormal0.0-0.8The [facility] Physician GroupComment on above:Performed By: #### RPR W RFX ####[facility] ,#### CBC ####[place] [address] USAMonocytes/100 WBC (Bld)8.6 %Normal.The [facility] Physician GroupComment on above:Performed By: #### RPR W RFX ####[facility] ,#### CBC ####[address] [address] USANeutrophils (Bld) [#/Vol]6.7 10*3/uLNormal1.8-7.7The [facility] Physician GroupComment on above:Performed By: #### RPR W RFX ####[facility] ,#### CBC ####[address] [address] USANeutrophils/100 WBC (Bld)70.3 %Normal.The [facility] Physician GroupComment on above:Performed By: #### RPR W RFX ####[facility] ,#### CBC ####[place] [address] USANRBC%0.1 /100{WBC}Normal0-0.5The [facility] Physician GroupComment on above:Performed By: #### RPR W RFX ####[facility] ,#### CBC ####[address] [address] USAPlatelet mean volume (Bld) [Entitic vol]11.7 fLHigh 6.3-10.7The [facility] Physician GroupComment on above:Performed By: #### RPR W RFX ####[facility] ,#### CBC ####[address] [address] USAPlatelets (Bld) [#/Vol]223 10*3/uLNormal 150-450The [facility] Physician GroupComment on above:Performed By: #### RPR W RFX ####[facility] ,#### CBC ####[address] [address] USARBC (Bld) [#/Vol]4.04 10*6/uLNormal3.60-5.00 The [facility] Physician GroupComment on above:Performed By: #### RPR W RFX ####[facility] ,#### CBC ####[place] [address] USAWBC (Bld) [#/Vol]9.6 10*3/uLNormal3.8-11.6The [facility] Physician GroupComment on above:Performed By: #### RPR W RFX ####[facility] ,#### CBC ####[place] [address] USAWhite Blood Count9.6 [CFU]/mLNormal3.8-11.6The [facility] Physician GroupComment on above:Performed By: #### RPR W RFX ####[facility] ,#### CBC ####[place] [address] USADipstick and Microscopicon 13-71-6868Aovsnhsk,Urine 3+ [HPF]NormalNone SeenThe [facility] Physician GroupComment on above:Order Comment: Name Collection Type:: Clean-Voided MidstreamPerformed By: #### ADDONUAPLUS, OBUDS, CUU #### [facility] [address] [place] [address] USABilirubin,UrineNegativeNormalNegativeThe [facility] Physician GroupComment on above:Order Comment: Name Collection Type:: Clean- Voided MidstreamPerformed By: #### ADDONUAPLUS, OBUDS, CUU #### [facility] [address] [place] [address] USAGlucose Ql (U)NormalNormalNormalThe [facility] Physician GroupComment on above:Order Comment: Name Collection Type:: Clean-Voided MidstreamPerformed By: #### ADDONUAPLUS, OBUDS, CUU #### [facility] [address] [place] [address] USAHyaline Casts,UrineNoneNormal0-8The [facility] Physician GroupComment on above:Order Comment: Name Collection Type:: Clean-Voided MidstreamPerformed By: #### ADDONUAPLUS, OBUDS, CUU #### [place] [address] USAMucus,UrineRareNormalLarkin Community Hospital Physician GroupComment on above:Order Comment: Name Collection Type:: Clean-Voided MidstreamResult Comment: PERFORMED BY: [place] [address] PATHOLOGIST STUDIO SALES ASSOCIATE ELINA DURBIN M.D.Performed By: #### ADDONUAPLUS, OBUDS, CUU #### [place] [address] USANitrite,UrineNegativeNormalNegativeLarkin Community Hospital Physician GroupComment on above:Order Comment: Name Collection Type:: Clean-Voided MidstreamPerformed By: #### ADDONUAPLUS, OBUDS, CUU #### [place] [id number] USANon-Squamous Epithelial Cell,U1-2NormalNone SeenThe [facility] Physician GroupComment on above:Order Comment: Name Collection Type:: Clean-Voided MidstreamPerformed By: #### ADDONUAPLUS, OBUDS, CUU #### [place] [address] USAOccult Blood,UrineNegativeNormalNegativeThe [facility] Physician GroupComment on above:Order Comment: Name Collection Type:: Clean- Voided MidstreamResult Comment: PERFORMED BY: [place] [address] PATHOLOGIST STUDIO SALES ASSOCIATE ELINA DURBIN M.D.Performed By: #### ADDONUAPLUS, OBUDS, CUU #### [place] [address] USAProtein,UrineNegativeNormalNegativeThe [facility] Physician GroupComment on above:Order Comment: Name Collection Type:: Clean-Voided MidstreamPerformed By: #### ADDONUAPLUS, OBUDS, CUU #### [place] [id number] USARBC,Yiasf0-4Ngruis3-4Axc [facility] Physician GroupComment on above:Order Comment: Name Collection Type:: Clean-Voided MidstreamPerformed By: #### ADDONUAPLUS, OBUDS, CUU #### [place] [address] USASpecificy Voorhees,Urine1.580Lthdro2.001-1.030The [facility] Physician GroupComment on above:Order Comment: Name Collection Type:: Clean- Voided MidstreamPerformed By: #### ADDONUAPLUS, OBUDS, CUU #### [place] [address] USASquamous Epithelial Cell,Qvdsd7-5Dwqtfg3-0Lvq [facility] Physician GroupComment on above:Order Comment: Name Collection Type:: Clean- Voided MidstreamPerformed By: #### ADDONUAPLUS, OBUDS, CUU #### [place] [address] USAUrobilinogen,UrineNormalNormalNormalThe [facility] Physician GroupComment on above:Order Comment: Name Collection Type:: Clean- Voided MidstreamPerformed By: #### ADDONUAPLUS, OBUDS, CUU #### [place] [address] USAWBC CLUMP, UrineOccasionalNormalNone SeenThe [facility] Physician GroupComment on above:Order Comment: Name Collection Type:: Clean- Voided MidstreamPerformed By: #### ADDONUAPLUS, OBUDS, CUU #### [place] [id number] USAWBC,Qkoat71-62Stujkq0-3Zvv [facility] Comment on above:Order Comment: Name Collection Type:: Clean-Voided Midstream Performed By: #### ADDONUAPLUS, OBUDS, CUU #### [place] [address] USAEpithelial cells.non-squamous [#/area] in Urine sediment by Automated countOrdered By: HUI Young on 91-14-3347Smeodqastd cells.non-squamous Auto (Urine sed) [#/Area]1-2 [HPF]HighNone [facility] Warren HospitalEpithelial cells.squamous [#/area] in Urine sediment by Automated countOrdered By: HUI Young on 87-95-8329Kybiwzswow cells.squamous Auto (Urine sed) [#/Area]5-9 [HPF]High0-2FBarnesville HospitalErythrocytes [#/area] in Urine sediment by Automated countOrdered By: HUI Young on 23-01-8885MAR Auto (Urine sed) [#/Area]3-4 [HPF]0-4 [facility] Medical CenterGlucose [Mass/volume] in Urine by Test strip Ordered By: HUI Young on 91-54-6224Ywyisvh Test strip (U) [Mass/Vol] Normal mg/dLNormChildren's Hospital of ColumbusHemoglobin Test strip Ql (U) Ordered By: HUI Young on 10-99-3304Bpdjebiljq Ql (U)NegativeNegative [facility] Medical CenterHyaline casts [#/area] in Urine sediment by Automated countOrdered By: HUI Young on 23-00-8886Xqflwna casts Auto (Urine sed) [#/Area]None [LPF]0-8[facility] Medical CenterKetones [Presence] in Urine by Test stripOrdered By: HUI Young on 09-30-2024 Ketones Ql (U)NegativeNormalNegativePremier Health Upper Valley Medical CenterComment on above:Order Comment: Name Collection Type:: Clean-Voided MidstreamPerformed By: #### JUNAID GALLEGOS CUU #### [place] [address] USALeukocyte clumps [Presence] in Urine by AutomatedOrdered By: HUI Young on 60-14-5530Ddfekweac clumps Auto Ql (U)Occasional [LPF]HighNone [facility] Warren HospitalLeukocyte esterase [Presence] in Urine by Test stripOrdered By: HUI Young on 88-57-9596Ervudmvuy esterase Test strip Ql (U)2+NormalNegWayne Hospital Comment on above:Order Comment: Name Collection Type:: Clean-Voided Midstream Performed By: #### JUNAID GALLEGOS CUU #### [facility] [address] [place] [address] USALeukocytes [#/area] in Urine sediment by Automated count Ordered By: HUI Young on 81-11-2659BZP Auto (Urine sed) [#/Area]10- [HPF]High0-4FBarnesville HospitalMucus [Presence] in Urine by AutomatedOrdered By: HUI Young on 56-53-9561Manys Auto Ql (U)Rare [LPF][facility] Medical CenterNitrite Test strip Ql (U)Ordered By: ROVERTO Young on 13-41-9163Gefffak Ql (U)NegativeNegativePremier Health Upper Valley Medical CenterNo Panel InformationOrdered By: HUI Young on 09-30-2024 Syphilis InterpretationComment.[facility] Medical CenterComment on above:Syphilis: RPR with Reflex to RPR Titer and Treponemal Antibodies, Traditional Screening and Diagnosis Algorithm TreponemalRPR RPR, Qn Ab Final Interpretation-------- --------- Non N/A N/A No laboratory evidenceReactive of syphilis. Retest in 2-4 weeks if recent exposure us suspected.-------- --------- -- -------- Reactive >/=1:1 Non Nontreponemal antibodies Reactive detected.Syphilis unlikely; biological false positive possible. Retest in 2-4 weeks if recent exposure is suspected.-------- --------- Reactive >/=1:1 Reactive Treponemaland nontreponemal antibodies detected. Consistent with past or current (potential early) syphilis.Performed at: [facility] [id number] Director: Vitaliy Lee PhD, Phone: [phone] URINE DRUG SCREEN (NO THC)on 22-45-1113VJRRTRMIUCM SCREEN,URINENegativeNegativeNOMS HealthcareBARBITURATE SCREEN,URINENegativeNegativeNOMS HealthcareBENZODIAZEPINES SCREEN,URINENegativeNegativeNOMS HealthcareCOCAINE SCREEN,URINENegativeNegative NOMS HealthcareOPIATE SCREEN,URINENegativeNegativeNOMS HealthcarePHENCYCLIDINE SCREEN, URINENegativeNegativeNOMS HealthcareComment on above:These are unconfirmed results and should not be used for legal purposes. Drug Cut-Off Concentration: AMPH 1000 ng/mL KIRK 200 ng/mL KAVITHA 200 ng/mL COCM 300 ng/mL OP 300 ng/mL PCP 25 ng/mL NOMS HealthcareOB Urine Drug Screen (NO THC)on 89-82-3024Emfmfsvtuoj Screen,UrineNegativeNormalNegativeLarkin Community Hospital Physician GroupComment on above: Performed By: #### JUNAID GALLEGOS CUU #### [facility] [address] [place] [address] USABarbiturate Screen,UrineNegativeNormalNegativeLarkin Community Hospital Physician GroupComment on above:Performed By: #### JUNAID GALLEGOS CUU #### [facility] [address] [place] [address] USABenzodiazepines Screen,UrineNegativeNormalNegativeLarkin Community Hospital Physician GroupComment on above:Performed By: #### JUNAID GALLEGOS, CUU #### [facility] [address] [place] [address] USACocaine Screen,UrineNegativeNormalNegativeLarkin Community Hospital Physician Alliance HospitalComment on above:Performed By: #### JUNAID GALLEGOS, CUU #### [place] [address] USAOpiate Screen,UrineNegativeNormalNegativeThe [facility] Physician GroupComment on above:Performed By: #### JUNAID GALLEGOS, CUU #### [place] [address] USAPhencyclidine Screen, UrineNegativeNormalNegativeThe [facility] Physician Alliance HospitalComment on above:Result Comment: These are unconfirmed results and should not be used for legal purposes. Drug Cut-Off Concentration: AMPH 1000 ng/mL KIRK 200 ng/mL KAVITHA 200 ng/mL COCM 300 ng/mL OP 300 ng/mL PCP 25 ng/mL PERFORMED BY: [place] [address] PATHOLOGIST STUDIO SALES ASSOCIATE ELINA DURBIN M.D.Performed By: #### JUNAID GALLEGOS, CUU #### [place] [address] USAOpiates [Presence] in Urine by Screen methodOrdered By: HUI Young on 50-22-0990Ydlpaqe Screen Ql (U)NegativeNegWayne HospitalPhencyclidine Screen Ql (U)Ordered By: HUI Young on 45-40-9379Enayylbaehkrl Ql (U)NegativeNegWayne HospitalComment on above:These are unconfirmed results and should not be used for legal purposes. Drug Cut-Off Concentration: AMPH 1000 ng/mL KIRK 200 ng/mL KAVITHA 200 ng/mL COCM 300 ng/mL OP 300 ng/mL PCP 25 ng/mLProtein Test strip (U) [Mass/Vol]Ordered By: HUI Young on 36-02-3895Lgrysig (U) [Mass/Vol]NegativeNegWayne HospitalRPR w/rfx to Quant TP Abson 26-73-7688QWZ InterpretationCommentNormal.[facility] Comment on above:Result Comment: Syphilis: RPR with Reflex to RPR Titer and Treponemal Antibodies, Traditional Screening and Diagnosis Algorithm Treponemal RPR RPR, Qn Ab Final Interpretation -------- --------- Non N/A N/A No laboratory evidence Reactive of syphilis. Retest in 2-4 weeks if recent exposure us suspected. -------- --------- Reactive >/=1:1 Non Nontreponemal antibodies Reactive detected. Syphilis unlikely; biological false positive possible. Retest in 2-4 weeks if recent exposure is suspected. -------- --------- Reactive >/=1:1 Reactive Treponemal and nontreponemal antibodies detected. Consistent with past or current (potential early) syphilis. Performed at: [facility] [id number] Executive Sales Manager: Vitaliy Lee PhD, Phone: [phone] PERFORMED BY: [place] [address] PATHOLOGIST STUDIO SALES ASSOCIATE ELINA DURBIN M.D.Performed By: #### HH #### [place] [address] USARPR, Rfx Quant RPRNon-ReactiveNormalNon ReactiveThe [facility] Physician GroupComment on above:Performed By: #### HH #### [facility] [address] [place] [address] USASerum RPR testOrdered By: HUI Young on 25-97-6107Sclqjg Ab RPR Ql (S)Non-ReactiveNon ReactiveRiverview Health Institutepecific gravity Test strip (U) [Rel density]Ordered By: HUI Young on 88-45-7783Uucriyza gravity (U) [Rel density]1.0161.001-1.030[facility] CenterUrinalysis complete panel (U)on 84-67-4626Huelsgqkcx (U) CloudyCritically abnormalClearNOMS HealthcareBILIRUBIN,URINENegativeNegativeNOMS HealthcareColor (U)YellowYellowNOMS HealthcareGlucose Ql (U)NormalNormal mg/dL NOMS HealthcareInterpretation and review of laboratory resultsAbnormalNOMS HealthcareKetones Ql (U)NegativeNegativeNOSC HealthcareLeukocyte esterase Test strip Ql (U)2+NegativeNOMS HealthcareNITRITE,URINENegativeNegativeNOMS HealthcareOCCULT BLOOD,URINENegativeNegativeNOMS HealthcarepH (U)5.5 [pH]5.0 - 9.0NOMS HealthcarePROTEIN,URINENegativeNegative mg/dLNOSC HealthcareSPECIFICY GRAVITY,URINE1.0161.001 - 1.030NOMS HealthcareUROBILINOGEN,URINENormalNormal mg/dLNOMS HealthcareName Collection Type:: Clean-Voided MidstreamMercy Health St. Rita's Medical CenterUrine Cultureon 59-93-9433Fiaegyyv identified Cx Nom (U)<9,000 colonies/ml mixed bacterial skin contaminants 2 Days PERFORMED BY: [facility] [address] [place] [address] PATHOLOGIST STUDIO SALES ASSOCIATE ELINA DURBIN M.D.NormalThe [facility] Physician GroupComment on above: Performed By: #### JUNAID GALLEGOS CUU #### [facility] [address] [place] [address] USAUrine cultureOrdered By: HUI Young on 63-08-1567Atgtjwyc identified Cx Nom (U)2 DaysPremier Health Upper Valley Medical Center Urobilinogen Test strip (U) [Mass/Vol]Ordered By: HUI Young on 50-13-6142Fsdxtcagqwux (U) [Mass/Vol]Normal mg/dLNormChildren's Hospital of ColumbuspH of Urine by Test stripOrdered By: HUI Young on 76-16-3929rW (U)5.5 [pH]Normal5.0-9.0[facility] Medical CenterComment on above:Order Comment: Name Collection Type:: Clean-Voided MidstreamPerformed By: #### EL OBUDS, CUU #### [facility] [address] [place] [address] USAAmphetamine Screen Ql (U)Ordered By: HUI Young on 07-02-4291Sjgwpuliapva Ql (U)NegativeNegWayne HospitalAppearance of UrineOrdered By: HUI Young on 09-29-2024 Appearance (U)CloudyCritically abnormalCleSouthview Medical Center Comment on above:Order Comment: Comment c/o urinary symptoms or increased blood pressure Name Collection Type:: Clean-Voided MidstreamPerformed By: #### EL OBUDS ####[facility] [address] [place] [address] USABacteria [Presence] in Urine by AutomatedOrdered By: HUI Young on 72-93-5375Wuztidyq Auto Ql (U)3+ [HPF]HighNone SeenPremier Health Upper Valley Medical CenterBarbiturates [Presence] in Urine by Screen methodOrdered By: ROVERTO Young on 66-03-5485Pmmpmqmnwgfy Screen Ql (U)NegativeNegative [facility] CenterBenzodiazepines Screen Ql (U)Ordered By: ROVERTO Young on 57-76-8128Orljzwwmfttdqdq Ql (U)NegativeNegWayne HospitalBenzoylecgonine [Presence] in Urine by Screen method Ordered By: HUI Young on 12-56-8205Eiuosrqgouodmje Screen Ql (U) NegativeNegWayne HospitalBilirubin Test strip Ql (U) Ordered By: HUI Young on 87-24-6512Vjhpimypx Ql (U)NegativeNegative [facility] CenterColor of Urine by AutoOrdered By: HUI Young on 07-75-8243Adxln (U)ColorlessNormalYellowPremier Health Upper Valley Medical CenterComment on above:Order Comment: Comment c/o urinary symptoms or increased blood pressure Name Collection Type:: Clean-Voided MidstreamPerformed By: #### EL OBUDS ####[address] [address] USACreatinine [Mass/volume] in UrineOrdered By: HUI Young on 24-15-3340Pkmsrxhwyj (U) [Mass/Vol]54.00 mg/dLPremier Health Upper Valley Medical CenterComment on above:No reference range establishedDipstick and Microscopicon 98-91-9106Tbvmksau,Urine3+ [HPF]NormalNone SeenThe [facility] Physician GroupComment on above:Order Comment: Comment c/o urinary symptoms or increased blood pressure Name Collection Type:: Clean-Voided MidstreamPerformed By: #### EL OBUDS ####[address] [address] USABilirubin,UrineNegativeNormalNegativeLarkin Community Hospital Physician GroupComment on above:Order Comment: Comment c/o urinary symptoms or increased blood pressure Name Collection Type:: Clean-Voided MidstreamPerformed By: #### EL, OBUDS ####[address] [address] USAGlucose Ql (U)NormalNormalNormalThe [facility] Physician GroupComment on above:Order Comment: Comment c/o urinary symptoms or increased blood pressure Name Collection Type:: Clean-Voided MidstreamPerformed By: #### NELLIEUAPAULETTE, OBUDS ####[address] [address] USAHyaline Casts,UrineNoneNormal0-8The [facility] Physician GroupComment on above:Order Comment: Comment c/o urinary symptoms or increased blood pressure Name Collection Type:: Clean-Voided MidstreamResult Comment: PERFORMED BY: [facility] [address] [place] [id number] PATHOLOGIST STUDIO SALES ASSOCIATE ELINA DURBIN M.D.Performed By: #### ADDONUAPLUS, OBUDS ####[address] [address] USANitrite,UrineNegative NormalNegativeThe [facility] Physician GroupComment on above:Order Comment: Comment c/o urinary symptoms or increased blood pressure Name Collection Type:: Clean-Voided MidstreamPerformed By: #### ADDONUAPLUS, OBUDS ####[address] [address] USAOccult Blood,Urine NegativeNormalNegativeThe [facility] Physician GroupComment on above:Order Comment: Comment c/o urinary symptoms or increased blood pressure Name Collection Type:: Clean-Voided MidstreamResult Comment: PERFORMED BY: [facility] [address] [place] [id number] PATHOLOGIST STUDIO SALES ASSOCIATE ELINA DURBIN M.D.Performed By: #### ADDONJULIA, OBUDS ####[address] [address] USAProtein,UrineNegative NormalNegativeThe [facility] Physician GroupComment on above:Order Comment: Comment c/o urinary symptoms or increased blood pressure Name Collection Type:: Clean-Voided MidstreamPerformed By: #### ADDONUAPLUS, OBUDS ####[address] [address] USARBC,Deiyw3-3Nwposa6-8 The [facility] Physician GroupComment on above:Order Comment: Comment c/o urinary symptoms or increased blood pressure Name Collection Type:: Clean-Voided MidstreamPerformed By: #### ADDONUAPLUS, OBUDS ####[address] [address] USASpecificy [place]he[place],Urine1.004Normal 1.001-1.030The [facility] Physician GroupComment on above:Order Comment: Comment c/o urinary symptoms or increased blood pressure Name Collection Type:: Clean- Voided MidstreamPerformed By: #### ADDONUAPLUS, OBUDS ####[address] [address] USASquamous Epithelial Cell,Urine 5-9Gmhcoc6-8Nhq The [facility] [facility] Physician GroupComment on above:Order Comment: Comment c/o urinary symptoms or increased blood pressure Name Collection Type:: Clean- Voided MidstreamPerformed By: #### ADDONUAPLUS, OBUDS ####[place] [address] USAUrobilinogen,UrineNormalNormal NormalThe [facility] Physician GroupComment on above:Order Comment: Comment c/o urinary symptoms or increased blood pressure Name Collection Type:: Clean-Voided MidstreamPerformed By: #### ADDONUAPLUS, OBUDS ####[place] [id number] USAWBC,Jquhm91-68Ktohnf2-4Okm [facility] Physician GroupComment on above:Order Comment: Comment c/o urinary symptoms or increased blood pressure Name Collection Type:: Clean-Voided MidstreamPerformed By: #### ADDONUAPLUS, OBUDS ####[place] [id number] USAEpithelial cells.squamous [#/area] in Urine sediment by Automated countOrdered By: HUI Young on 81-27-3515Qguysvvqqe cells.squamous Auto (Urine sed) [#/Area]1-2 [HPF]0-2FBarnesville HospitalErythrocytes [#/area] in Urine sediment by Automated countOrdered By: ROVERTO Young on 55-71-8242ZWN Auto (Urine sed) [#/Area]1-2 [HPF]0-4 [facility] CenterGlucose [Mass/volume] in Urine by Test strip Ordered By: HUI Young on 76-56-5409Sqkawjl Test strip (U) [Mass/Vol] Normal mg/dLNormalPremier Health Upper Valley Medical CenterHemoglobin Test strip Ql (U) Ordered By: HUI Young on 59-97-2130Ubevavrmqc Ql (U)NegativeNegative [facility] CenterHyaline casts [#/area] in Urine sediment by Automated countOrdered By: HUI Young on 45-24-8127Quwobrg casts Auto (Urine sed) [#/Area]None [LPF]0-8[facility] CenterKetones [Presence] in Urine by Test stripOrdered By: HUI Young on 09-29-2024 Ketones Ql (U)NegativeNormalNegWayne HospitalComment on above:Order Comment: Comment c/o urinary symptoms or increased blood pressure Name Collection Type:: Clean-Voided MidstreamPerformed By: #### ADDONUAPLUS, OBUDS ####[place] [address] [place] Leukocyte esterase [Presence] in Urine by Test stripOrdered By: HUI Young on 14-91-2465Stgquzdpx esterase Test strip Ql (U)[facility] Holly SpringsNormalMary Rutan HospitalComment on above:Order Comment: Comment c/o urinary symptoms or increased blood pressure Name Collection Type:: Clean-Voided MidstreamPerformed By: #### ADDONUAPLUS, OBUDS ####[place] [id number] USALeukocytes [#/area] in Urine sediment by Automated countOrdered By: HUI Young on 57-34-1252VOC Auto (Urine sed) [#/Area]10-19 [HPF]High0-4FBarnesville HospitalNitrite Test strip Ql (U)Ordered By: HUI Young on 17-63-0920Ynlzcub Ql (U)Negative NegativePremier Health Upper Valley Medical CenterOB URINE DRUG SCREEN (NO THC)on 12-83-1701ZIJSWMZAJOH SCREEN,URINENegativeNegativeNOMS HealthcareBARBITURATE SCREEN,URINENegativeNegativeNOMS HealthcareBENZODIAZEPINES SCREEN,URINENegative NegativeNOMS HealthcareCOCAINE SCREEN,URINENegativeNegativeNOMS HealthcareOPIATE SCREEN,URINENegativeNegativeNOMS HealthcarePHENCYCLIDINE SCREEN, URINENegative NegativeNOMS HealthcareComment on above:These are unconfirmed results and should not be used for legal purposes. Drug Cut-Off Concentration: AMPH 1000 ng/mL KIRK 200 ng/mL KAVITHA 200 ng/mL COCM 300 ng/mL OP 300 ng/mL PCP 25 ng/mL Comment s/s of acute impairmentFIRTrinity Health Urine Drug Screen (NO THC)on 22-17-7924Qkdqhytyypr Screen,UrineNegativeNormalNegativeLarkin Community Hospital Physician GroupComment on above:Order Comment: Comment s/s of acute impairment Performed By: #### ADDONUAPLUS, OBUDS ####[address] [address] USABarbiturate Screen,UrineNegativeNormalNegative The [facility] Physician GroupComment on above:Order Comment: Comment s/s of acute impairmentPerformed By: #### ADDONUAPLUS, OBUDS ####[address] [address] USABenzodiazepines Screen,Urine NegativeNormalNegativeLarkin Community Hospital Physician GroupComment on above:Order Comment: Comment s/s of acute impairmentPerformed By: #### ADDONUAPLUS, OBUDS ####[address] [address] USACocaine Screen,UrineNegativeNormalNegativeThe [facility] Physician GroupComment on above:Order Comment: Comment s/s of acute impairmentPerformed By: #### ADDONUAPLUS, OBUDS ####[address] [address] USAOpiate Screen,UrineNegativeNormalNegativeLarkin Community Hospital Physician GroupComment on above:Order Comment: Comment s/s of acute impairmentPerformed By: #### ADDONUAPLUS, OBUDS ####[address] [address] USAPhencyclidine Screen, UrineNegativeNormalNegativeThe [facility] Physician GroupComment on above:Order Comment: Comment s/s of acute impairmentResult Comment: These are unconfirmed results and should not be used for legal purposes. Drug Cut-Off Concentration: AMPH 1000 ng/mL KIRK 200 ng/mL KAVITHA 200 ng/mL COCM 300 ng/mL OP 300 ng/mL PCP 25 ng/mL PERFORMED BY: [facility] [address] [place] [address] PATHOLOGIST STUDIO SALES ASSOCIATE ELINA DURBIN M.D.Performed By: #### NATALIYA GALLEGOSS ####[facility] [place] [address] USAOpiates [Presence] in Urine by Screen methodOrdered By: HUI Young on 96-87-2332Kojbatr Screen Ql (U)NegativeNegWayne HospitalPhencyclidine Screen Ql (U)Ordered By: HUI Young on 09-13-7742Djkaeyhexsgwf Ql (U) NegativeNegWayne HospitalComment on above:These are unconfirmed results and should not be used for legal purposes. Drug Cut-Off Concentration: AMPH 1000 ng/mL KIRK 200 ng/mL KAVITHA 200 ng/mL COCM 300 ng/mL OP 300 ng/mL PCP 25 ng/mLProtein Creat Ratio Ur Randomon 65-60-7194Pnfqioveip, Urine (Random)54.00 mg/dLNormalThe [facility] Physician GroupComment on above: Result Comment: No reference range establishedPerformed By: #### PROCRERAT #### [place] [address] USAProtein, Urine (Random)<9Duruvl8-4Fsl [facility] Physician GroupComment on above:Performed By: #### PROCRERAT #### [place] [id number] USAUrine Protein/Creatinine RatioNot performedNormal0-200The [facility] Physician GroupComment on above:Result Comment: PERFORMED BY: [facility] [address] [place] [address] PATHOLOGIST STUDIO SALES ASSOCIATE ELINA DURBIN M.D.Performed By: #### PROCRERAT #### [place] [id number] USAProtein Test strip (U) [Mass/Vol]Ordered By: HUI Young on 41-83-2598Xurgjvq (U) [Mass/Vol]NegativeNegativePremier Health Upper Valley Medical CenterProtein [Mass/volume] in UrineOrdered By: HUI Young on 12-42-9816Qnfqplo (U) [Mass/Vol]mg/dL0-9[facility] CenterProtein/Creatinine (U) [Mass ratio]on 37-85-7212Hdcugwpxuw spec 2 (U) [Mass/Vol]54 mg/dLCox Walnut LawnComment on above:No reference range established Protein (U) [Mass/Vol]mg/dL0 - 9 mg/dLCox Walnut LawnURINE PROTEIN/CREATININE RATIONot performed0 - 200 mg/g{Cre}Maria Parham HealthSpecific gravity Test strip (U) [Rel density]Ordered By: HUI Young on 33-37-7246Lpbugliq gravity (U) [Rel density]1.0041.001-1.030[facility] Medical CenterUS OB biophysical profileon 26-87-6597NC OB biophysical profile [facility] [place] [address] Ultrasound Report Signed Patient: Kerri Caceres MR#: [id number] 28 : 1990 Acct:[id number] Age/Sex: 34 / F ADM Date: 09/29/24 Loc: E3 Room: Type: [facility] Attending Dr: Renita Young MD Ordering Provider: HUI Brandon Date of Service: 09/29/24 US/US OB biophysical profile: failed bpp in office 07/20 Copies to: HUI Brandon US OB biophysical profile 09/29/2024 2:55 PM SIGNS AND SYMPTOMS: S.br failed bpp in office 07/20 PROTOCOL: Transabdominal sonographic images of the gravid uterus COMPARISON: None FINDINGS: Estimated gestational age is 39 weeks and 1 day. Estimated weight is 7 lbs. 14 oz. heart rate is 133 bpm. The amniotic fluid index is 13.74 cm with the deepest vertical pocket measuring 6.4 cm. Biophysical profile score: tone: 2/2 Gross body movements: 2/2 breathing movements: 2/2 Amniotic fluid volume: 2/2 US/US OB biophysical profile IMPRESSION: Biophysical profile score: 8/8 Impression dictated by: Xu Friedman M.D. 09/29/2024 5:45 PM Dictation Location: [place] [address] Tech: Yoselin Bone Transcribed By: ROHIT 09/29/241744 Dictated By: Xu Friedman II, MD 09/29/241743 Signed By: 09/29/241744[facility] Physician GroupUrinalysis complete panel (U)on 77-37-9844Mgjjxhqsrm (U)CloudyCritically abnormalClearNOMS Healthcare BILIRUBIN,URINENegativeNegativeNOMS HealthcareColor (U)ColorlessYellowNOMS HealthcareGlucose Ql (U)NormalNormal mg/dLNOMS HealthcareInterpretation and review of laboratory resultsAbnormalNOMS HealthcareKetones Ql (U)Negative NegativeNOSC HealthcareLeukocyte esterase Test strip Ql (U)NegativeNegativeNOMS HealthcareNITRITE,URINENegativeNegativeNOMS HealthcareOCCULT BLOOD,URINENegative NegativeNOMS HealthcarepH (U)6 [pH]5.0 - 9.0NOMS HealthcarePROTEIN,URINENegative Negative mg/dLNOSC HealthcareSPECIFICY GRAVITY,URINE1.0041.001 - 1.030NOMS HealthcareUROBILINOGEN,URINENormalNormal mg/dLNOSC HealthcareComment c/o urinary symptoms or increased blood pressure Name Collection Type:: Clean-Voided MidstreamMercy Health St. Rita's Medical CenterUrine protein/creatinine ratioOrdered By: HUI Young on 09-29-2024 Protein/Creatinine (U) [Ratio]Kindred Hospital DaytonComment on above:Test not performedUrobilinogen Test strip (U) [Mass/Vol]Ordered By: ROVERTO Young on 16-39-8265Ibaupberkzcy (U) [Mass/Vol]Normal mg/dLBarnesville HospitalpH of Urine by Test stripOrdered By: HUI Young on 06-23-6374qH (U)6.0 [pH]Normal5.0-9.0[facility] CenterComment on above:Order Comment: Comment c/o urinary symptoms or increased blood pressure Name Collection Type:: Clean-Voided MidstreamPerformed By: #### NELLIELUDWIGPAULETTE, OBUDS ####[facility] [id number] [place] [address] USAUrinalysis macro (dipstick) panel (U)on 97-73-2062Cavekatxe, UA NegativeNegative - 4(70) +++ mg/dLNOMS HealthcareBlood, UANegativeNegative - 50 Bayron/mcLNOMS HealthcareClarity, UAClearNOMS HealthcareColor, UAYellowNOMS HealthcareGlucose, UANegativeNegative - 2000(110) ++++ mg/dLNOMS Healthcare Interpretation and review of laboratory resultsNormalNOMS HealthcareKetones, UA NegativeNegative - 160(16) ++++ mg/dLNOMS HealthcareLeukocytes, UANegative Negative - 500+++ Dave/mcLNOMS HealthcareNitrite, UANegativeNegative - Positive NOMS HealthcarepH, UA55 - 9NOMS HealthcareProtein, UANegativeNegative - 1999(20) ++++ mg/dLNOMS HealthcareSpec Grav, UA11 - 1.03NOMS HealthcareUrobilinogen, UA 0.20.2 - 12 mg/dLNOMS HealthcareNOMS HealthcareUrinalysis macro (dipstick) panel (U)on 53-48-2277Elvqkjxwr, UANegativeNegative - 4(70) +++ mg/dLNOMS Healthcare Blood, UANegativeNegative - 50 Bayron/mcLNOMS HealthcareClarity, UAClearNOMS HealthcareColor, UAYellowNOMS HealthcareGlucose, UANegativeNegative - 2000(110) ++++ mg/dLNOMS HealthcareInterpretation and review of laboratory resultsNormal NOMS HealthcareKetones, UANegativeNegative - 160(16) ++++ mg/dLNOMS Healthcare Leukocytes, UANegativeNegative - 500+++ Dave/mcLNOMS HealthcareNitrite, UA NegativeNegative - PositiveNOMS HealthcarepH, UA55 - 9NOMS HealthcareProtein, UA NegativeNegative - 2000(20) ++++ mg/dLNOMS HealthcareSpec Grav, UA11 - 1.03NOMS HealthcareUrobilinogen, UA0.20.2 - 12 mg/dLNOMS HealthcareNOMS Healthcare Urinalysis macro (dipstick) panel (U)on 90-67-3443Nxanssaiy, UANegativeNegative - 4(70) +++ mg/dLNOMS HealthcareBlood, UANegativeNegative - 50 Bayron/mcLNOMS HealthcareClarity, UAClearNOMS HealthcareColor, UAAmberNOMS HealthcareGlucose, UANegativeNegative - 2000(110) ++++ mg/dLNOMS HealthcareInterpretation and review of laboratory resultsNormalNOMS HealthcareKetones, UANegativeNegative - 160(16) ++++ mg/dLNOMS HealthcareLeukocytes, UANegativeNegative - 500+++ Dave/mcL NOMS HealthcareNitrite, UANegativeNegative - PositiveNOMS HealthcarepH, UA55 - 9 NOMS HealthcareProtein, UANegativeNegative - 2000(20) ++++ mg/dLNOMS Healthcare NOMS HealthcareGroup B Streptococcus culture femaleOrdered By: HUI Young on 08-31-2024S. agalactiae Org specific cx Ql (Unsp spec)Strep agalactiae - (group b)AbnormalRiverview Health Institutetrep B Cultureon 08-31-2024 Strep B CultureORGANISM: Strep agalactiae - (group b) (O:STRAGA) PERFORMED BY: [facility] [address] [place] [address] PATHOLOGIST STUDIO SALES ASSOCIATE LUZMA ROSA M.D.NormalThe [facility] Physician GroupComment on above: Performed By: #### CUSTB ####[facility] [place] [address] USAUrinalysis macro (dipstick) panel (U)on 08-31-2024 Glucose, UANegativeNegative - 2000(110) ++++ mg/dLNOMS HealthcareInterpretation and review of laboratory resultsNormalNOMS HealthcareProtein, UANegativeNegative - 2000(20) ++++ mg/dLNOMS HealthcareNOMS HealthcareUrinalysis macro (dipstick) panel (U)on 78-63-8501Oxkbryu, UANegativeNegative - 2000(110) ++++ mg/dLNOMS HealthcareInterpretation and review of laboratory resultsNormalNOMS Healthcare Protein, UANegativeNegative - 1999(20) ++++ mg/dLNOMS HealthcareNOMS Healthcare Urinalysis macro (dipstick) panel (U)Ordered By: Agustina Winston on 08-03-2024 Glucose, UANegativeNegative - 1999(110) ++++ mg/dLNOMS HealthcareInterpretation and review of laboratory resultsNormalNOMS HealthcareProtein, UANegativeNegative - 1999(20) ++++ mg/dLNOMS HealthcareNOMS HealthcareUrinalysis macro (dipstick) panel (U)Ordered By: Agustina Winston on 23-98-3005Sedrywb, UANegativeNegative - 1999(110) ++++ mg/dLNOMS HealthcareInterpretation and review of laboratory resultsNormalNOMS HealthcareProtein, UANegativeNegative - 1999(20) ++++ mg/dL NOMS [facility] Cross HospitalNOSC HealthcareGLUCOSE,1 HOUR PP 50GM DOSE ([facility])on 07-09-2024 Glucose [Mass/Vol]119 mg/dL60 - 140 mg/dLNOSC HealthcareNOMS HealthcareGlucose [Mass/volume] in Serum or PlasmaOrdered By: HUI Young on 07-09-2024 Glucose [Mass/Vol]119 mg/cPEggvhn47-561ZzgqhwpexPremier Health Upper Valley Medical CenterComment on above:Result Comment: PERFORMED BY: [facility] [address] [place] [place] [address] PATHOLOGIST STUDIO SALES ASSOCIATE LUZMA ROSA M.D.Performed By: #### [id number] ####[facility] [address] [place] [address] USAHematocrit [Volume Fraction] of Blood by Automated countOrdered By: HUI Young on 07-09-2024 Hematocrit (Bld) [Volume fraction]34.6 %Opfvqt74.0-46.4FBarnesville HospitalComment on above:Result Comment: PERFORMED BY: [facility] [address] [place] [address] PATHOLOGIST STUDIO SALES ASSOCIATE LUZMA ROSA M.D.Performed By: #### HH #### [facility] [address] [place] [address] USAHemoglobin [Mass/volume] in BloodOrdered By: HUI Young on 81-17-0492Yxcwthqbqu (Bld) [Mass/Vol]11.6 g/dLLow11.8-15.4 [facility] Medical CenterComment on above:Performed By: #### HH #### [facility] [address] [place] [id number] USARFX RhoGAM Vials Indicatedon 61-13-2372EQN RhoGAM Vials Indicated1 DoseNormalThe [facility] Physician Alliance HospitalComment on above:Result Comment: 1 vial of RhoGAM is equivalent to 300 mcg. 1 vial will suppress alloimmunization by 15 mL of red cells or 30 mL of whole blood.RHOGAM DOSEon 27-14-2340FSTBOF DOSEAntenatal NormalThe [facility] Physician Alliance HospitalComment on above:Result Comment: PERFORMED BY: [place] [address] PATHOLOGIST STUDIO SALES ASSOCIATE LUZMA ROSA M.D.Rhogam Workupon 64-94-6616Rhhzrk CandidateYesNormal The [facility] Alliance HospitalComment on above:Result Comment: This result is part of the RhoGAM Workup Order. This order, and result, initiates the Outpatient RhoGAM Protocol ID#: OB.[id number] and Rh group Nom (Bld)Blood group B Rh(D) negative NormalThe [facility] HealthcareUrinalysis macro (dipstick) panel (U)Ordered By: Mona Anderson on 56-81-6221Skumvkfnz, UANegativeNegative - 4(70) +++ mg/dL NOMS HealthcareBlood, UANegativeNegative - 50 Bayron/mcLNOMS HealthcareClarity, UA ClearNOMS HealthcareColor, UAYellowNOMS HealthcareGlucose, UANegativeNegative - 2000(110) ++++ mg/dLNOMS HealthcareInterpretation and review of laboratory resultsNormalNOMS HealthcareKetones, UANegativeNegative - 160(16) ++++ mg/dLNOMS HealthcareLeukocytes, UANegativeNegative - 500+++ Dave/mcLNOMS Healthcare Nitrite, UANegativeNegative - PositiveNOMS HealthcarepH, UA6.55 - 9NOMS HealthcareProtein, UANegativeNegative - 2000(20) ++++ mg/dLNOMS HealthcareSpec Grav, UA1.0151 - 1.03NOMS HealthcareUrobilinogen, UA1.00.2 - 12 mg/dLNOMS HealthcareNOMS HealthcareUrinalysis macro (dipstick) panel (U)Ordered By: Mona Anderson on 16-60-2250Fjjvsjesl, UANegativeNegative - 4(70) +++ mg/dLNOMS HealthcareBlood, UANegativeNegative - 50 Bayron/mcLNOMS HealthcareClarity, UAClear NOMS HealthcareColor, UAYellowNOMS HealthcareGlucose, UANegativeNegative - 1999(110) ++++ mg/dLNOMS HealthcareInterpretation and review of laboratory resultsNormalNOMS HealthcareKetones, UANegativeNegative - 160(16) ++++ mg/dLNOMS HealthcareLeukocytes, UANegativeNegative - 500+++ Dave/mcLNOMS Healthcare Nitrite, UANegativeNegative - PositiveNOMS HealthcarepH, UA65 - 9N[facility] Healthcare Protein, UANegativeNegative - 2000(20) ++++ mg/dLNOMS HealthcareSpec Grav, UA 1.0051 - 1.03NOMS HealthcareUrobilinogen, UA1.00.2 - 12 mg/dLNOMS HealthcareNOMS HealthcareUrinalysis macro (dipstick) panel (U)Ordered By: Mona Anderson on 82-11-1807Mblhuoytr, UANegativeNegative - 4(70) +++ mg/dLNOMS HealthcareBlood, UANegativeNegative - 50 Bayron/mcLNOMS HealthcareClarity, UAClearNOMS Healthcare Color, UAYellowNOMS HealthcareGlucose, UANegativeNegative - 2000(110) ++++ mg/dL NOMS HealthcareInterpretation and review of laboratory resultsNormalNOMS HealthcareKetones, UANegativeNegative - 160(16) ++++ mg/dLNOMS Healthcare Leukocytes, UANegativeNegative - 500+++ Dave/mcLNOMS HealthcareNitrite, UA NegativeNegative - PositiveNOSC HealthcarepH, UA85 - 9NOSC HealthcareProtein, UA NegativeNegative - 2000(20) ++++ mg/dLGUNNISON VALLEY [facility]OSPITAL HealthcareSpec Grav, UA1.0151 - 1.03 NOMS HealthcareUrobilinogen, UA1.00.2 - 12 mg/dLMaria Parham Health Urinalysis macro (dipstick) panel (U)on 01-70-9863Rdqcnylsl, UANegativeNegative - 4(70) +++ mg/dLCox Walnut LawnBlood, UANegativeNegative - 50 Bayron/mcLGUNNISON VALLEY HOSPITAL HealthcareClarity, UACloudyNOSC HealthcareColor, UAYellowGUNNISON VALLEY HOSPITAL HealthcareGlucose, UANegativeNegative - 2000(110) ++++ mg/dLGUNNISON VALLEY HOSPITAL HealthcareInterpretation and review of laboratory resultsNormalNOSC HealthcareKetones, UANegativeNegative - 160(16) ++++ mg/dLGUNNISON VALLEY HOSPITAL HealthcareLeukocytes, UANegativeNegative - 500+++ Dave/mcL [facility] HealthcareNitrite, UANegativeNegative - PositiveNOMS HealthcarepH, UA65 - 9 NOMS HealthcareProtein, UANegativeNegative - 2000(20) ++++ mg/dLCox Walnut Lawn Spec Grav, UA1.011 - 1.03Cox Walnut LawnUrobilinogen, UA1.00.2 - 12 mg/dLMaria Parham HealthLaboratory - Cytologyon 95-96-1512Wxkmkvbmdg Cyto stain Nom (Cvx/Vag) [ID]CommentCox Walnut LawnComment on above:Maylin Padron, CytotechnologistCytology report Cyto stain Doc (Cvx/Vag)[facility], [place] Comment on above:NEGATIVE FOR INTRAEPITHELIAL LESION OR MALIGNANCY.Cytology report Cyto stain.thin prep Doc (Cvx/Vag)CommentCox Walnut LawnComment on above: This liquid based ThinPrep(R) pap test was screened with the use of an image guided system. Statement of adequacy Cyto stain (Cvx/Vag) [Interp]CommentCox Walnut LawnComment on above:Satisfactory for evaluation. No endocervical component is identified. Laboratory - Microbiology and Antimicrobial susceptibilityon 66-97-0468MYP 16+18+31+33+35+39+45+51+52+56+58+59+66+68 DNA Probe+sig amp Ql (Cvx)Negative NegativeGUNNISON VALLEY HOSPITAL HealthcareComment on above:This nucleic acid amplification test detects fourteen high-risk HPV types (16,18,31,33,35,39,45,51,52,56,58,59,66,68) without differentiation. Microscopic observation Other stain Nom (Unsp spec).NOMS HealthcareNo Panel Informationon 48-77-8484Exvydurbq ICD code [Identifier]CommentNOSt. Louis VA Medical Center Comment on above:Z01.419 Z12.4 Note:CommentNOSt. Louis VA Medical CenterComment on above:The Pap smear is a screening test designed to aid in the detection of premalignant and malignant conditions of the uterine cervix. It is not a diagnostic procedure and should not be used as the sole means of detecting cervical cancer. Both false-positive and false-negative reports do occur. Performed at: 01 - Lab[address] [id number] Executive Sales Manager: Jacquie Aldana MD, Phone: [phone] Performed at: 02 - Labco[address] [id number] Executive Sales Manager: Jacquie Aldana MD, Phone: [phone] Specimen Comment: No. of containers..01 ThinPrep VialLABMUSC Health [facility] Laboratory - Specimen informationon 17-09-1573Dqzmxlyr type Nom (Spec)swabCox Walnut LawnNo Panel Informationon 64-13-6045TOPEQUHMDKD DNA(PCR)NegativeNegatvie [facility] HealthcareInterpretation and review of laboratory resultsNormWashington Health System HealthcareUrinalysis macro (dipstick) panel (U)Ordered By: Mona Anderson on 53-44-7721Qfqcshewd, UANegativeNegative - 4(70) +++ mg/dLNOSC HealthcareBlood, UANegativeNegative - 50 Bayron/mcLNOSC HealthcareClarity, UAClear [facility] HealthcareColor, UAYellowNOSC HealthcareGlucose, UANegativeNegative - 2000(110) ++++ mg/dLGUNNISON VALLEY HOSPITAL HealthcareInterpretation and review of laboratory resultsNormalGUNNISON VALLEY HOSPITAL HealthcareKetones, UANegativeNegative - 160(16) ++++ mg/dLNOSC HealthcareLeukocytes, UANegativeNegative - 500+++ Dave/mcLNOSC Healthcare Nitrite, UANegativeNegative - PositiveNOMS HealthcarepH, UA65 - 9NOSC Healthcare Protein, UANegativeNegative - 2000(20) ++++ mg/dLNOSC HealthcareSpec Grav, UA 1.0251 - 1.03NOSC HealthcareUrobilinogen, UA1.00.2 - 12 mg/dLNOSC HealthcareNOSC Healthcare Vital Signs Date TimeVital SignValuePerforming VajywgfzdJygbnmrp98-54-1606 10:56-0400Body .7 Mateo Young MD Work Phone: [phone] [place], [place] 9786709-03-2025 10:56-0400Body mass index (BMI) [Ratio]34.97 kg/b4LglscuRenita Young MD Work Phone: [phone] [place], [place] 9786709-03-2025 10:56-0400Body tfzedy289.33 kgRenita Young MD Work Phone: [phone] [place], [place] 9786709-03-2025 10:56-0400Diastolic blood tpgpfuol89 mm[Hg]Renita Young MD Work Phone: [phone] [place], [place] 9786709-03-2025 10:56-0400Systolic blood dvybgjyw899 mm[Hg]Renita Young MD Work Phone: [phone] [place], [place] 9786707-30-2025 13:12-0400Body mass index (BMI) [Ratio]34.72 kg/p2QyzcyaRenita Young MD Work Phone: [phone] [place], [place] 9786707-30-2025 13:12-0400Body gcsoow852.33 kgRenita Young MD Work Phone: [phone] [place], [place] 97[address]707-30-2025 13:12-0400Diastolic blood rnshelxy26 mm[Hg]Renita Young MD Work Phone: [phone] [place], [place] [address]Vqfctsvoed77-57-6023 13:12-0400Systolic blood uezkssig298 mm[Hg]Renita Young MD Work Phone: [phone] [place], [place] 9786707-09-2025 09:43-0400Body mass index (BMI) [Ratio]35.77 kg/k0WktoweRenita Young MD Work Phone: [phone]07-09-2025 09:43-0400Body fxwyjr344.5 kgRenita Young MD Work Phone: [phone])[facility] HospitalP[facility]4Cox Walnut LawnCgionayfkt23-03-7535 09:43-0400Diastolic blood ybdjrkew77 mm[Hg]Renita Young MD Work Phone: [phone])[facility] HospitalP[facility] Wal[facility] LawnMbabqhpklf76-78-9345 09:43-0400Systolic blood sjliydrt561 mm[Hg]Renita Young MD Work Phone: [phone] [place], [place] 9786707-02-2025 09:20-0400Body mass index (BMI) [Ratio]37.58 kg/u2BtfdmpRenita Young MD Work Phone: 1([phone])[address] [place], [place] 9786707-02-2025 09:20-0400Body dtayuh416.95 kgRenita Young MD Work Phone: [phone])[facility] [place], [place] [address]Tqihkpkvna37-29-5550 09:20-0400Diastolic blood ktkbatao15 mm[Hg]Renita Young MD Work Phone: [phone] [place], [place] [address]Wpfxdgwjgm21-36-3855 09:20-0400Systolic blood lebhggmf028 mm[Hg]Renita Young MD Work Phone: 1(302)630-[address] [place], [place] [address]Bkditdjlyi27-70-7298 10:00-0400Body temperature 97.9 [degF]Amy Kingsley APRN Work Phone: [facility]06-23-2025 10:00-0400 Diastolic blood kiqdnaix41 mm[Hg]Amy Kingsley APRN Work Phone: [facility]06-23-2025 10:00-0400 Heart rate97 /Teresa Kingsley APRN Work Phone: [facility]06-23-2025 10:00-0400 Respiratory rate18 /Teresa Kingsley APRN Work Phone: [phone]06-23-2025 10:00-0400 SaO2% (BldA) [Mass fraction]99 %Amy Subramanianisidrokathrynjalil [employer] INSPECTOR Work Phone: 1(686)336-[address] [place], [place] 0256406-23-2025 10:00-0400 Systolic blood flhjuuaq054 mm[Hg]Amy Gamboar [employer] FA[employer]EN[employer] INSPECTOR Work Phone: [phone]06-19-2025 08:33-0400 Body mtgpyg899.72 cmAmy Subramanianrbacher SL[employer] FASTENERS INSPECTOR Work Phone: 1(180)[address] [place], [place] 5442306-19-2025 08:33-0400 Body odloyb708.02 kgAmy Subramanianrbacher SL[employer] FA[employer]EN[employer] INSPECTOR Work Phone: 1(043)[address] [place], [place] 5442306-18-2025 15:30-0400 Body zgndmnufkhd53.9 [degF]Amy Subramaniankemar [employer] FASTEN[employer] INSPECTOR Work Phone: 1(929)[address] [place], [place] 5442306-18-2025 15:30-0400 Diastolic blood ffilmegv59 mm[Hg]Amy Subramanianmicheller SL[employer] FA[employer]EN[employer] INSPECTOR Work Phone: 1(229)[address]06-18-2025 15:30-0400 Heart rate68 /Teresa Subramanianrbacher SLIDE FASTENERS INSPECTOR Work Phone: 1(575)[address] [place], [place] 5442306-18-2025 15:30-0400 Respiratory rate16 /Teresa Subramanianrbacher SLIDE FASTENERS INSPECTOR Work Phone: 1(363)[facility] [place], [place] 0256406-18-2025 15:30-0400 Systolic blood gpllgizm923 mm[Hg]Amy Subramanianisidrokathrynr [employer] FA[employer]EN[employer] INSPECTOR Work Phone: 1(423)[address] [place], [place] 5442306-18-2025 15:12-0400 SaO2% (BldA) [Mass fraction]100 %Amy Subramaniankemar SL[employer] FA[employer]EN[employer] INSPECTOR Work Phone: 1(780)[address] [place], [place] 5442306-18-2025 11:48-0400 Body gjlqia338.72 cmAmy Subramanianrbacher SL[employer] FA[employer]EN[employer] INSPECTOR Work Phone: 1(723)831-[address] [place], [place] 0256406-18-2025 11:48-0400 Body xacqjt818.02 kgMannykelly Kingsley APRN Work Phone: [facility]06-10-2025 14:18-0400 Body mass index (BMI) [Ratio]39.09 kg/s2VfskdkRenita Young MD Work Phone: 1(948)023-[facility] LawnIneitazurz43-12-0384 14:18-0400Body qeddlp726.48 Salvador Young MD Work Phone: 1(485)278-[address] [place], [place] [address]Uxspmzrksz86-71-6567 14:18-0400Diastolic blood kxuxynkk61 mm[Hg]Renita Young MD Work Phone: 1(081)572-[address] [place], [place] [address]Suclpxsbnj01-77-6825 14:18-0400Systolic blood ltuutpmr559 mm[Hg]Renita Young MD Work Phone: 1(032)936-[address] [place], [place] [address]Anoucxpagw86-89-4462 12:39-0400Body mass index (BMI) [Ratio]38.94 kg/h5SmqbdfRenita Young MD Work Phone: 1(268)[address]06-03-2025 12:39-0400Body .03 Salvador Young MD Work Phone: 1(863)113-[address] [place], [place] [address]Qivvvafunm12-96-4926 12:39-0400Diastolic blood mm[Hg]Renita Young MD Work Phone: 1(071)377-[address] [place], [place] [address]Ohnoulzpgx53-45-2002 12:39-0400Systolic blood mm[Hg]Renita Young MD Work Phone: 1(364)[address]05-28-2025 09:54-0400Body mass index (BMI) [Ratio]38.79 kg/y6SdcvwcRenita Young MD Work Phone: 1(521)082-[address] [place], [place] [address]Mawovfafmx36-64-5858 09:54-0400Body .57 Salvador Young MD Work Phone: 1(193)618-[address] [place], [place] [address]Vfeeyzhkvh44-34-7874 09:54-0400Diastolic blood mm[Hg]Renita Young MD Work Phone: 1(638)834-[address] [place], [place] [address]Ksnqkjjxht75-19-9147 09:54-0400Systolic blood inhxqejg078 mm[Hg]Renita Young MD Work Phone: 1(709)[facility] [place], [place] [address]Ilcjxppnbz96-36-0662 12:32-0400Body mass index (BMI) [Ratio]38.49 kg/q8KabgbfRenita Young MD Work Phone: 1(094)[facility] [place], [place] [address]Kkodakwhlv85-65-4457 12:32-0400Body guiekv327.67 kgRenita Young MD Work Phone: 1(631)[address] [place], [place] 9786705-20-2025 12:32-0400Diastolic blood jrezftws62 mm[Hg]Renita Young MD Work Phone: 1(321)[address] [place], [place] 9786705-20-2025 12:32-0400Systolic blood bcmiebwo999 mm[Hg]Renita Young MD Work Phone: 1(668)[address] [place], [place] 9786705-06-2025 15:03-0400Body mass index (BMI) [Ratio]38.19 kg/e6BafylzRenita Young MD Work Phone: 1(234)[address] [place], [place] 9786705-06-2025 15:03-0400Body ghrokb759.76 Salvador Young MD Work Phone: 1(950)[address] [place], [place] 9786705-06-2025 15:03-0400Diastolic blood abryuolj65 mm[Hg]Renita Young MD Work Phone: 1(710)[address] [place], [place] 9786705-06-2025 15:03-0400Systolic blood eudcbhos725 mm[Hg]Renita Young MD Work Phone: 1(084)[address] [place], [place] 9786704-22-2025 08:34-0400Body mass index (BMI) [Ratio]37.43 kg/d7CnnigiRenita Young MD Work Phone: 1(202)[address] [place], [place] 9786704-22-2025 08:34-0400Body xxawzy388.49 Salvador Young MD Work Phone: 1(538)[address] [place], [place] 9786704-22-2025 08:34-0400Diastolic blood gwobnukk59 mm[Hg]Renita Young MD Work Phone: 1(821)[address] [place], [place] 9786704-22-2025 08:34-0400Systolic blood rxxeowgv781 mm[Hg]Renita Young MD Work Phone: 1(991)[address] [place], [place] 9786704-01-2025 15:12-0400Body mass index (BMI) [Ratio]36.98 kg/x3UfnxsnRenita Young MD Work Phone: 1(203)392-[facility] LawnDlqkpjzvba05-70-5755 15:12-0400Body psshio984.13 Salvador Young MD Work Phone: [facility] LawnOdtzobaehw50-82-7588 15:12-0400Diastolic blood tfanynrp70 mm[Hg]Renita Young MD Work Phone: 1(884)360-[facility] LawnGtauvicipo42-60-9118 15:12-0400Systolic blood mm[Hg]Renita Young MD Work Phone: 1(799)393-[address] [place], [place] [address]Hxldbdkyzl62-13-9791 14:17-0400Diastolic blood qeayuxar76 mm[Hg]Amy Kingsley APRN Work Phone: [facility]03-28-2025 14:17-0400 Heart rate90 /minJekelly Kingsley APRN Work Phone: [facility]03-28-2025 14:17-0400 Systolic blood eqifuffm198 mm[Hg]Amy Kingsley APRN Work Phone: [facility]03-04-2025 12:39-0500 Body mass index (BMI) [Ratio]36.98 kg/p8OwfzzfRenita Young MD Work Phone: 1(664)019-[facility] LawnHzohscoaiy43-32-5635 12:39-0500Body wljopa181.13 Salvador Young MD Work Phone: 1(895)106-[facility] HospitalC[facility] Walnut LawnOstxysqrws23-91-1444 12:39-0500Diastolic blood lgjyzivi64 mm[Hg]Renita Young MD Work Phone: 1(364)162-[facility] LawnWgicbsyxic84-79-9275 12:39-0500Systolic blood nubfcpll406 mm[Hg]Renita Young MD Work Phone: 1(573)303-[facility] LawnCdotdejewb85-63-1142 16:17-0500Body mass index (BMI) [Ratio]36.68 kg/k2QlzxloRenita Young MD Work Phone: 1(419)[address]02-04-2025 16:17-0500Body .22 Salvador Young MD Work Phone: 1(603)[address] [place], [place] 9786702-04-2025 16:17-0500Diastolic blood ifpoxnnv80 mm[Hg]Renita Young MD Work Phone: 1(970)[address] [place], [place] 9786702-04-2025 16:17-0500Systolic blood cjdwfhuy848 mm[Hg]Renita Young MD Work Phone: 1(119)[address] [place], [place] 9786701-28-2025 12:31-0500Body mass index (BMI) [Ratio]36.38 kg/g3RltscmRenita Young MD Work Phone: 1(496)[address] [place], [place] 9786701-28-2025 12:31-0500Body xmjucm158.32 kgRenita Young MD Work Phone: 1(777)[address] [place], [place] 9786701-28-2025 12:31-0500Diastolic blood aaqhjqui25 mm[Hg]Renita Young MD Work Phone: 1(870)[address] [place], [place] 9786701-28-2025 12:31-0500Systolic blood mm[Hg]Renita Young MD Work Phone: 1(382)[address] [place], [place] 9786701-14-2025 08:41-0500Body mass index (BMI) [Ratio]36.68 kg/d8GoqltxRenita Young MD Work Phone: 1(813)[address] [place], [place] 9786701-14-2025 08:41-0500Body .22 Salvador Young MD Work Phone: 1(058)[address] [place], [place] 9786701-14-2025 08:41-0500Diastolic blood opdirnho32 mm[Hg]Renita Young MD Work Phone: 1(130)[address] [place], [place] 9786701-14-2025 08:41-0500Systolic blood fulndpna919 mm[Hg]Renita Young MD Work Phone: 1(800)[address] [place], [place] 9786712-16-2024 08:58-0500Body vcvqum199.4 Mateo Young MD Work Phone: 1(283)[address] [place], [place] 9786712-16-2024 08:45-0500Body mass index (BMI) [Ratio]36.38 kg/p0SmjtaeRenita Young MD Work Phone: [facility] LawnCjnemzcobl54-77-4808 08:45-0500Body nmlidl260.32 kgRenita Young MD Work Phone: [facility] LawnLzakfvxdwf00-76-7855 08:45-0500Diastolic blood mm[Hg]Renita Young MD Work Phone: [facility] LawnRcjhgaloal12-20-1563 08:45-0500Systolic blood uiykbbdq195 mm[Hg]Renita Young MD Work Phone: [facility] LawnAljdblvppg18-29-8218 14:34-0500Body wofhkj798.99 cm[facility]11-12-2024 14:34-0500Body mass index (BMI) [Ratio]36.3 kg/o1WbagyzfqsPrem[facility] Health [facility] Center11-12-2024 14:34-0500Body iuhaurrynly15.8 [degF][facility]11-12-2024 14:34-0500Body stalpl938.22 kgPrem[facility] Health [facility]11-12-2024 14:34-0500Diastolic blood yfgbcmms45 mm[Hg][facility]11-12-2024 14:34-0500 Heart bdep919 /minPremier Health Upper Valley [facility] Center11-12-2024 14:34-8661IpH6% (BldA) [Mass fraction]98 %[facility]11-12-2024 14:34-0500 Systolic blood etxfyqro582 mm[Hg][facility]02-12-2024 12:20-0500Body vakhrr321.63 cmAmanda Diogenes Other [employer] [facility] [employer] Other 02-12-2024 12:20-0500Body xnyjeaegrmi86.7 [degF]Payton Diogenes Other [employer] [facility] [employer] Other 02-12-2024 12:20-0500Respiratory rate18 /minAmanda Diogenes Other [employer] Other 02-12-2024 12:20-1150AuO9% (BldA) [Mass fraction]98 % Payton Shetty Other [employer] Other 12-10-2023 12:25-0500Body qfjbuj583.63 cmPlilia Monte Other [employer] Other 12-10-2023 12:25-0500Body mass index (BMI) [Ratio] 36.29 kg/l7NsqddeKrysta Monte Other [employer] Other 12-10-2023 12:25-0500Body uhrhjzetexp14.1 [degF]Krysta Monte Other [employer] Other 12-10-2023 12:25-0500Body beeqea242.68 kgKrysta Monte Other [employer] Other 12-10-2023 12:25-0500Diastolic blood iuwmydxm26 mm[Hg] Krysta Nyemond Other [employer] Other 12-10-2023 12:25-9222XzO7% (BldA) [Mass fraction]97 % Krysta Nyemond Other [employer] Other 12-10-2023 12:25-0500Systolic blood zynjioeo711 mm[Hg] Krysta Nyemond Other [employer] Other Encounters Encounter DateEncounter TypeCare ProviderFacilityStart: 01-26-2025 End: 32-95-2226Befnvphko encounterRenita Young MD Work Phone: NOAP [facility]ulito OBGYNStart: 12-15-2024 End: 51-39-8018Vkrndo outpatient visit 10 minutesRenita Young MD Work Phone: noms Raulito OBGYNComment on above:Acute postoperative pain; Incisional painStart: 12-15-2024 End: 50-24-2827uozikuotnnZIRHOI P JONESNot AvailableStart: 11-10-2024 End: 64-51-0137Iyzvilseiq care Dory Young MD Work Phone: noMS Parnell OBGYNComment on above:General counseling and advice on contraceptive management (Primary Dx); care following delivery ([facility]); Acute postoperative painStart: 11-10-2024 End: 03-59-5348ohelrwxxfdKFHBSK P JONESNot AvailableStart: 10-20-2024 End: 85-45-6922Budwoytn flow sheetRenita Young MD Work Phone: noms [facility] OBComment on above: care following delivery ([facility]); Acute postoperative painStart: 10-20-2024 End: 46-18-7822wxbgxnytoiKGIAYY P JONESNot AvailableStart: 10-14-2024 End: 23-65-0610Fapewyc encounter Peter Pathak MD- Visit Work Phone: Start: 10-14-2024 End: 52-99-8420tnfptrtozdKWMProvidence Hospital Work Phone: Start: 10-13-2024 End: 63-55-1937Hmzqfqfgpr care Dory Young MD Work Phone: noms [facility] OBComment on above:Acute postoperative pain (Primary Dx)Start: 10-13-2024 End: 62-90-4689dlshhyimuqYRPFJT P JONESNot AvailableStart: 10-06-2024 End: 11-98-9605Ksnwemt encounter Shireen Rowell- Visit Work Phone: Start: 10-06-2024 End: 96-53-5774uggjfgvrqjFaracoscLeydi Kingsley APRN Work Phone: [facility] Work Phone: Start: 10-02-2024 End: 19-40-3779Jpxjsolg Result EncounterRenita Young MD Work Phone: noms External Department UnsolicitedStart: 10-02-2024 End: 67-81-2897Kmtttwrd Result Iron Young MD Work Phone: noms External Department UnsolicitedStart: 09-30-2024 End: 95-24-9790Benzwbxe Result EncounterRenita Young MD Work Phone: noms External Department UnsolicitedStart: 09-30-2024 End: 74-31-8351Yyeydqgp Result Iron Young MD Work Phone: noms External Department UnsolicitedStart: 09-30-2024 End: 25-62-3194Vgaredktvy and management of inpatientMD-REE Young-3 [facility] Work Phone: Start: 09-29-2024 End: 91-85-1115Zxlqwdxk Result EncounterRenita Young MD Work Phone: noms External Department UnsolicitedStart: 09-29-2024 End: 09-79-8010Jdqwvayn Result Iron Young MD Work Phone: noms External Department UnsolicitedStart: 09-29-2024 End: 60-77-9577woahyqljayACF STAFFFacility:[facility] Start: 09-29-2024 End: 01-45-7564Jldtqzey flow sheetRenita Young MD Work Phone: noms SWS OBComment on above:Third trimester ([facility]); Vaginal bleeding during ([facility]); Intertrigo; Rh negative status during in second trimester ([facility]); Anemia, unspecified type; 39 weeks gestation of ([facility])Start: 09-29-2024 End: 14-02-0624Acwidpl encounter procedureNoms Sws Ob NurseNOMS SWS OBComment on above:39 weeks gestation of ([facility]); Vaginal bleeding during ([facility])Start: 09-29-2024 End: 74-51-6031oablrqaztxFEYSZQ P JONESNot AvailableStart: 09-21-2024 End: 71-24-7783tbxitwfinrUZHXFM JONESNot AvailableStart: 09-21-2024 End: 14-69-4566Hzoolix encounter procedureNoms Sws Ob NurseNOMS SWS OBComment on above:37 weeks gestation of ; Vaginal bleeding during pregnancyStart: 09-21-2024 End: 05-28-7249Kefhmppn flow Abdulkadir Young MD Work Phone: NOMS [facility] OBComment on above:Third trimester ([facility]); 37 weeks gestation of ([facility]); Vaginal bleeding during ([facility]); Intertrigo; Rh negative status during in second trimester ([facility]); Anemia, unspecified typeStart: 09-21-2024 End: 71-74-9689Rbgqdn Durga Young MD Work Phone: NOMS [facility] OBStart: 09-21-2024 End: 25-37-6519Kmsess Durga Young MD Work Phone: noMS [facility] OBStart: 09-21-2024 End: 11-21-8967fmtcrvgewhLDOGGR P JONESNot AvailableStart: 09-14-2024 End: 07-85-8147Yonuoah encounter procedureNoms Sws Ob NurseNOMS SWS OBComment on above:36 weeks gestation of ; Vaginal bleeding during pregnancyStart: 09-14-2024 End: 68-01-7357Fkedes Durga Young MD Work Phone: NOMS SWS OBStart: 09-14-2024 End: 31-43-5731Zmvvdlbethel Young MD Work Phone: NOMS SWS OBStart: 09-14-2024 End: 95-74-6060vwgbxvtdqyUCZADS JONESNot AvailableStart: 09-14-2024 End: 97-18-3094Vjnitlhm emily Young MD Work Phone: noms [facility] OBComment on above:Third trimester ; 36 weeks gestation of ; Intertrigo; Rh negative status during in second trimester; Anemia, unspecified typeStart: 09-14-2024 End: 65-67-8109gvkkmyzytoBNGGPF P JONESNot AvailableStart: 09-08-2024 End: 21-49-0319Hkolwe Durga Young MD Work Phone: noms [facility] OBStart: 09-08-2024 End: 91-93-9652Gtwkir Durga Young MD Work Phone: noms [facility] OBStart: 09-08-2024 End: 03-68-4196Tpklamdz emily Young MD Work Phone: noms [facility] OBComment on above:Third trimester ; 36 weeks gestation of ; Intertrigo; Rh negative status during in second trimester; Anemia, unspecified typeStart: 09-08-2024 End: 39-20-7548xzcipaxgluFUORSU P JONESNot AvailableStart: 08-31-2024 End: 64-20-0191hedwclwgvmFcetnd P JonesFacility:[facility] Institutetart: 08-31-2024 End: 68-62-3378Caiqzven [facility]REE [facility] Work Phone: Start: 08-31-2024 End: 31-52-7453Owilbuny flow Abdulkadir Young MD Work Phone: noms [facility] OBComment on above: screening for streptococcus B; Third trimester ; 34 weeks gestation of ; Intertrigo; Rh negative status during in second trimester; Anemia, unspecified typeStart: 08-31-2024 End: 36-91-2155kjabouwzzkSINZTV P JONESNot AvailableStart: 08-17-2024 End: 29-23-5322Khapuaav emily Young MD Work Phone: noms [facility] OBComment on above:Third trimester ; 32 weeks gestation of ; Intertrigo; Rh negative status during in second trimester; Anemia, unspecified typeStart: 08-17-2024 End: 63-45-1594tnwaxwowmrXEGWEA P JONESNot AvailableStart: 08-17-2024 End: 34-15-6409Wxihtv Durga Young MD Work Phone: NOEN [facility] OBStart: 08-17-2024 End: 48-53-7190Rutrjm Durga Young MD Work Phone: NOWL [facility] OBStart: 08-03-2024 End: 11-00-1551Evyydn Durga Young MD Work Phone: NOEV [facility] OBStart: 08-03-2024 End: 71-97-1153Gjauxr Durga Young MD Work Phone: NOFE [facility] OBStart: 08-03-2024 End: 18-20-3084Smhdjwzx flow Abdulkadir Young MD Work Phone: noms [facility] OBComment on above:Third trimester ; 30 weeks gestation of ; Intertrigo; Rh negative status during in second trimester; Anemia, unspecified typeStart: 08-03-2024 End: 75-28-5581wavbikyihuJMWYVI P JONESNot AvailableStart: 07-13-2024 End: 07-96-9828Vwequknv flow Abdulkadir Young MD Work Phone: noms [facility] OBComment on above:Anemia, unspecified type (Primary Dx); Second trimester ; 27 weeks gestation of ; Intertrigo; Rh negative status during in second trimesterStart: 07-13-2024 End: 05-45-8571zwilbwbwrrWIPGVJ P JONESNot AvailableStart: 07-13-2024 End: 40-69-7872Qcfbnp Durga Young MD Work Phone: noms [facility] OBStart: 07-13-2024 End: 50-21-8122Tkvurc Durga Young MD Work Phone: noms [facility] OBStart: 07-09-2024 End: 15-43-9793Ukkkxozj Result Iron Young MD Work Phone: noms External Department UnsolicitedStart: 07-09-2024 End: 67-80-6653Gmxrduma Result EncounterRenita Young MD Work Phone: noms External Department UnsolicitedStart: 07-09-2024 Registered RecurringMD-NOMEric Young-Infusion Therapy - O/P Work Phone: Start: 91-59-2443apbehwsddeYlniidhx Rohrbacher Facility:[facility]utetart: 23-65-2160Dutxeesnj for blood typingRenita Rowland [facility] GroupStart: 06-15-2024 End: 09-93-7634Dqhohfl encounter statusRenita Young MD Work Phone: noms HealthcareStart: 06-15-2024 End: 61-49-0746Zvxbkxaw flow Abdulkadir Young MD Work Phone: noms SWS OBComment on above:23 weeks gestation of ; Second trimester ; Intertrigo; Screening for diabetes mellitus (DM); Blood typing encounter; Rh negative status during in second trimester; Encounter for blood typingStart: 06-15-2024 End: 97-95-6485nutytwpqfdOXUINB P JONESNot AvailableStart: 05-18-2024 End: 58-92-3280Egjdncrw flow Abdulkadir Young MD Work Phone: noms SWS OBComment on above:19 weeks gestation of ; Second trimester ; IntertrigoStart: 05-18-2024 End: 31-95-0055ogbrsasrtgWLJBEV P JONESNot AvailableStart: 05-11-2024 End: 64-35-9825Vqpnae Durga Young MD Work Phone: noms SWS OBStart: 05-11-2024 End: 74-98-0848Vmtggw Durga Young MD Work Phone: noms SWS OBStart: 05-11-2024 End: 46-31-6141Ciseurhv flow Abdulkadir Young MD Work Phone: noms [facility] OBComment on above:Intertrigo (Primary Dx); 18 weeks gestation of ; Second trimester pregnancyStart: 05-11-2024 End: 12-09-2264bqxzmfschhTOGGIM P JONESNot AvailableStart: 04-27-2024 End: 87-61-2021Xumcyn Durga Young MD Work Phone: NOMS [facility] OBStart: 04-27-2024 End: 20-80-0096Idsabq Durga Young MD Work Phone: NOMS [facility] OBStart: 04-27-2024 End: 75-69-3990Wncdcbec flow Abdulkadir Young MD Work Phone: [facility] OBComment on above:16 weeks gestation of ; Second trimester ; care, subsequent in first trimester; Screening for genetic disease carrier statusStart: 04-27-2024 End: 17-46-2403pjbqifawqcQVOMJJ P JONESNot AvailableStart: 03-29-2024 End: 18-57-9539Byvfdx Durga Young MD Work Phone: NOMS [facility] OBStart: 03-29-2024 End: 97-73-8317Imncuh Durga Young MD Work Phone: [facility] OBStart: 03-29-2024 End: 61-11-9634Sscmxlv encounter statusRenita Young MD Work Phone: N[facility] HealthcareStart: 03-29-2024 End: 98-41-7739Jfydzwak flow Abdulkadir Young MD Work Phone: NOMS [facility] OBComment on above:GA: 28o3bXpsdh: 03-29-2024 End: 21-13-7606nwtjepudafQQLSSR P JONESNot AvailableStart: 03-25-2024 End: 15-45-1315yvswwzxthaTTXVAI JONESNot AvailableStart: 03-04-2024 End: 26-73-6789Ogpybmrg flow zahraaNoms [facility] Ob NurseNOMS [facility] OBComment on above: GA: 9n4pWxufq: 03-04-2024 End: 18-27-8266zeggvmjfqlFQRLYN JONESNot AvailableStart: 93-38-7333Naeaimo encounter statusAmy Kingsley APRN Work Phone: [facility]utetart: 02-24-2024 End: 88-94-7916vzgspjzwvkCjuabwtveProMedica [facility] Work Phone: Start: 02-24-2024 End: 75-29-7772Xuikugo encounter procedureThe [facility]er [facility] Work Phone: Start: 05-26-2023 End: 34-07-5872kdvptsjmacVnceyj [employer] Other [employer] Other Start: 92-76-1242Qywwyk outpatient visit 15 minutes Payton GrobFPG [facility] Care ClydeStart: 03-23-2023 End: 78-24-3310amzbavsqevYiyvtn Mell Other [employer] Other Start: 85-32-6026Toxcrf outpatient new 10 minutes Krysta DymondFPG Urgent Care ClydeStart: 05-24-2020 End: 11-57-0783Bvuiqbu encounter procedureNONE LISTED REQUESTFacility:F7Cnssj: 04-26-2020 End: 54-16-3908Qizkpyg encounter procedureNONE LISTED REQUESTFacility:H1 Procedures DateProcedureProcedure DetailPerforming ClinicianStart: 91-62-3242Hlsqeknm screenAmy Montanaomment on above:Order Comment: dupeStart: 10-02-2024 Complete blood count with white cell differential, Ramin Young MD Work Phone: start: 88-78-9721Bhebi cultureAmy Kingsley APRN Work Phone: Start: 36-49-0238Osyxqcxh blood count with white cell differential, automatedRenita Young MD Work Phone: start: 98-04-3535CLG W/RFX TO QUANT & TP ABS ([facility] [place] Renita Young MD Work Phone: start: 22-30-7490Osswsmn bacterial quanttative colony count urineRenita Young MD Work Phone: start: 87-79-4270IL URINE DRUG SCREEN (NO THC)Renita Young MD Work Phone: start: 37-76-5040Obhpi dip stick/tablet rgnt auto w/o microscopyRenita Young MD Work Phone: start: 22-14-0946Lifdkgv total xcpt refractometry urineRenita Young MD Work Phone: start: 05-89-2552Ryvqdspsqsyernc for antepartum monitoring of fetusAmy Gamboajalil WEBB Work Phone: Start: 09-86-8032BK URINE DRUG SCREEN (NO THC)Renita Young MD Work Phone: start: 93-01-6121Ywzbo dip stick/tablet rgnt auto w/o microscopyRenita Young MD Work Phone: start: 36-81-7754Auvsq dip stick/tablet rgnt non-auto w/o micrscStaci Young MD Work Phone: start: 91-24-8422Ptazu dip stick/tablet rgnt non-auto w/o micrscStaci Young MD Work Phone: start: 18-56-8407Lfdtd dip stick/tablet rgnt non-auto w/o micrscpPjaziel Young MD Work Phone: start: 93-63-3672Xqhmfnopanhcg agalactiae culture Amy Sancho WEBB Work Phone: Start: 82-90-9475Bidzs dip stick/tablet rgnt non-auto w/o micrscpPjaziel Young MD Work Phone: start: 58-44-2238Gqbaf dip stick/tablet rgnt non-auto w/o micrscStaci Young MD Work Phone: start: 57-06-3818Btovh dip stick/tablet rgnt non-auto w/o denverscStaci Young MD Work Phone: start: 30-65-0388Ltlyo dip stick/tablet rgnt non-auto w/o denverscStaci Young MD Work Phone: start: 83-25-8049Pttauqnv screenAmy Sancho Comment on above:Result Comment: PERFORMED BY: [place] [id number] [address] [address] PATHOLOGIST STUDIO SALES ASSOCIATE LUZMA ROSA M.D.Start: 27-92-7091WPMOQRW,1 HOUR PP 50GM DOSE ([facility] Renita Young MD Work Phone: start: 92-89-1366Iyygj dip stick/tablet rgnt non-auto w/o Yobani Young MD Work Phone: start: 73-86-0280Dhlfz dip stick/tablet rgnt non-auto w/o micrscStaci Young MD Work Phone: start: 79-95-3398Mgbzr dip stick/tablet rgnt non-auto w/o Yobani Young MD Work Phone: start: 55-85-0402Cxtes dip stick/tablet rgnt non-auto w/o Yobani Young MD Work Phone: start: 99-63-5494Uufcybopk cultureRenita Young MD Work Phone: start: 92-07-9191Ewgil chlamydia trachomatis amplified probe tqRenita Young MD Work Phone: start: 93-14-7048Qpnwd dip stick/tablet rgnt non-auto w/o Yobani Young MD Work Phone: start: 53-46-7191FWW, APT HPV,RFX 16/18,45Renita Young MD Work Phone: Plan of Treatment DateCare ActivityDetailAuthorStart: 03-29-2025 End: 41-56-4446Iisovxr encounter ejvuoinap79/16/2025 2:30 PM EST Office Visit NOMEric Parnell MONAN [address] [place] [address] Renita Young MD [address] [place] [address] NOMEric Parnell OBGYNStart: 90-52-8430Lauewbvmx vaccinationInfluenza Vaccine (#1)[facility] HealthcareStart: 11-10-2024 End: 08-92-3006oxrayuiwnq75/30/2025 1:15 PM EDT Visit [facility] [address] [place] [phone] Renita Young MD [address] [place] [address] [facility] OBStart: 10-20-2024 End: 46-40-0257kanrbzkqam48/09/2025 9:30 AM EDT Visit [facility] [address] [place] [phone] Renita Young MD [address] [place] [address] care following delivery ([facility]); Acute postoperative painNOMS [facility] OBComment on above: care following delivery ([facility]); Acute postoperative painStart: 21-98-3547LpiisckalRiverview Health Institutetart: 58-67-9035Eexpalmu admissionRiverview Health Institutetart: 09-30-2024 Extraction of Products of Conception, Low Cervical, Open ApproachExtraction of Products of Conception, Low, Open ApproachPremier Health Upper [facility] Start: 50-67-1974Xzioahlkdgmh of Other Hormone into Peripheral Vein, Percutaneous ApproachIntroduction of Other Hormone into Peripheral Vein, Percutaneous ApproachFirelands Regional Medical CenterStart: 09-30-2024 Introduction of Other Therapeutic Substance into Female Reproductive, Via Natural or Artificial OpeningIntroduction of Other Therapeutic Substance into Female Reproductive, Via Natural or Artificial OpeningRiverview Health Institutetart: 18-81-9766DcctpzwxdRiverview Health Institutetart: 09-29-2024 Hospital admissionRiverview Health Institutetart: 09-29-2024 End: 63-21-1561Bohhwut encounter ssspjqitv65/18/2025 10:30 AM EDT Office Visit [facility] [address] [place] [phone] [facility] OBStart: 09-29-2024 End: 72-56-6574Qufwgwilnbhe / ancillary services jhrhjiffyu11/18/2025 9:30 AM EDT Ancillary Procedure [facility] [address] [place] [phone] [facility] OBStart: 09-21-2024 End: 40-81-0365Txakmyk encounter procedureNOMS [facility] OBComment on above:Third trimester ; 37 weeks gestation of ; Vaginal bleeding during ; Intertrigo; Rh negative status during in second trimester; Anemia, unspecified typeStart: 09-14-2024 End: 98-71-8809Pmoeqyr encounter procedureNOMS [facility] OBComment on above:Third trimester ; 36 weeks gestation of ; Intertrigo; Rh negative status during in second trimester; Anemia, unspecified typeStart: 09-08-2024 End: 30-38-4383Cemjmhb encounter procedureNOMS [facility] OBComment on above:Third trimester ; 36 weeks gestation of ; Intertrigo; Rh negative status during in second trimester; Anemia, unspecified typeStart: 08-31-2024 End: 43-30-9260Ugyzslk encounter hybxgvgbx93/20/2025 12:30 PM EDT Routine [facility] [address] [place] [phone] Renita Young MD [address] [place] [address] [facility] OBStart: 08-31-2024 End: 90-07-4907Xdubkwbupdrj / ancillary services jtalkrunna11/20/2025 11:00 AM EDT Ancillary Procedure [facility] [address] [place] [address] FCDU [facility] OBStart: 08-17-2024 End: 42-20-6137Hajxgzv encounter procedureNOMS [facility] OBComment on above:Third trimester ; 32 weeks gestation of ; Intertrigo; Rh negative status during in second trimester; Anemia, unspecified typeStart: 08-03-2024 End: 80-34-5225Hzzsdgo encounter procedureNOMS [facility] OBComment on above:Third trimester ; 30 weeks gestation of ; Intertrigo; Rh negative status during in second trimester; Anemia, unspecified typeStart: 07-13-2024 End: 21-33-9765Ykkucex encounter procedureNOMS [facility] OBComment on above:Second trimester ; 27 weeks gestation of ; Intertrigo; Rh negative status during in second trimesterStart: 06-15-2024 End: 64-86-2842Cmuekhislj [Mass/volume] in BloodHemoglobin and hematocrit, blood Lab Routine Screening for diabetes mellitus (DM) Expected: 06/15/2024 (Approximate), Expires: 06/15/2025[facility] Work Phone: comment on above:Expected: 06/15/2024 (Approximate), Expires: 06/15/2025Start: 06-15-2024 End: 89-41-0089Monhdtzzotv of glucose 1 hour after glucose challenge for glucose tolerance testGlucose tolerance, 1 hour Lab Routine Screening for diabetes mellitus (DM) Expected: 06/15/2024 (Approximate), Expires: 06/15/2025[facility] HealthcareComment on above:Expected: 06/15/2024 (Approximate), Expires: 06/15/2025Start: 06-15-2024 End: 31-17-1989VMCDHC WORKUP ([facility])RHOGAM WORKUP ([facility]) Lab Routine Rh negative status during in second trimester Encounter for blood typing Expected: 06/15/2024 (Approximate), Expires: 06/15/2025[facility] HealthcareComment on above: Expected: 06/15/2024 (Approximate), Expires: 06/15/2025Start: 06-15-2024 End: 60-24-7800Xqpkuuy encounter lebcenvxv58/04/2025 12:45 PM EST Routine [facility] [address] [place] [address] Renita Young MD [address] [place] [address] [facility] OBStart: 06-15-2024 End: 75-90-5949Xgpxtgapjvjz / ancillary services efbxbmqhff59/04/2025 11:45 AM EST Ancillary Procedure [facility] [address] [place] [address] WUBC [facility] OBStart: 05-18-2024 End: 46-48-4315Eqxuqzi encounter /04/2025 4:00 PM EST Routine [facility] [address] [place] [phone] Renita Young MD [address] [place] [address] [facility] OBStart: 05-18-2024 End: 11-30-1977Bqxikyuwwzso / ancillary services /04/2025 3:30 PM EST Ancillary Procedure [facility] [address] [place] [address] EOLN SWS OBStart: 05-11-2024 End: 51-72-7720Qloduyd encounter lwmpttqot67/28/2025 12:45 PM EST Routine [facility] [address] [place] [address] Renita Young MD [address] [place] [address] 18 weeks gestation of ; Second trimester pregnancyNOUCSF [facility] OBComment on above:18 weeks gestation of ; Second trimester pregnancyStart: 04-27-2024 End: 99-29-7549Wamqhuzndv(R) Core PanelInheritest(R) Core Panel Lab Routine care, subsequent in first trimester Screening for genetic disease carrier status Expected: 04/27/2024 (Approximate), Expires: 04/27/2025 [facility] Work Phone: comment on above:Expected: 04/27/2024 (Approximate), Expires: 04/27/2025Start: 04-27-2024 End: 66-79-0827Pdbzaugfd 21Maternity 21 Lab Routine care, subsequent in first trimester Screening for genetic disease carrier status Expected: 04/27/2024 (Approximate), Expires: 04/27/2025[facility] HealthcareComment on above:Expected: 04/27/2024 (Approximate), Expires: 04/27/2025Start: 04-27-2024 End: 36-72-3585Ufolzeb encounter procedureNOMS [facility] OBComment on above:16 weeks gestation of ; Second trimester pregnancyStart: 03-29-2024 End: 14-04-9637qrcjtzbwblTWIU SWS OBComment on above:12 weeks gestation of ; Encounter for supervision of normal first in first trimester; Encounter for gynecological examination without abnormal finding; Encounter for screening for cervical cancer; Screen for STD (sexually transmitted disease)Start: 03-25-2024 End: 46-25-9216Qmshymwcgssc / ancillary services svqberfjeu44/12/2024 3:30 PM EST Ancillary Procedure [facility] [address] [place] [address] [facility] OBStart: 03-04-2024 End: 51-54-5176Mmhprmyg identified in Urine by CultureUrine culture Microbiology Routine Encounter for supervision of normal first in first trimester Expected: 03/04/2024 (Approximate), Expires: 03/04/2025[facility] HealthcareComment on above:Expected: 03/04/2024 (Approximate), Expires: 03/04/2025Start: 03-04-2024 End: 93-32-4386Nfinj type and Indirect antibody screen panel - BloodType and screen Lab Routine Encounter for supervision of normal first in first trimester Expected: 03/04/2024 (Approximate), Expires: 03/04/2025[facility] Comment on above:Expected: 03/04/2024 (Approximate), Expires: 03/04/2025Start: 03-04-2024 End: 02-96-5692THD W Auto Differential panel - BloodCBC and differential Lab Routine Encounter for supervision of normal first in first trimester Expected: 03/04/2024 (Approximate), Expires: 03/04/2025[facility] HealthcareComment on above:Expected: 03/04/2024 (Approximate), Expires: 03/04/2025Start: 03-04-2024 End: 24-87-9864Rzbhgxxhf B virus surface Ag [Presence] in Serum or Plasma by ImmunoassayHepatitis B surface antigen Lab Routine Encounter for supervision of normal first in first trimester Expected: 03/04/2024 (Approximate), Expires: 03/04/2025[facility] HealthcareComment on above:Expected: 03/04/2024 (Approximate), Expires: 03/04/2025Start: 03-04-2024 End: 41-22-1106Nfmdmbznk C virus Ab [Presence] in Serum or Plasma by Immunoassay Hepatitis C antibody Lab Routine Encounter for supervision of normal first in first trimester Expected: 03/04/2024 (Approximate), Expires: 03/04/2025[facility] HealthcareComment on above:Expected: 03/04/2024 (Approximate), Expires: 03/04/2025Start: 03-04-2024 End: 73-42-3075AQZ-1/HIV-2 antigen/antibody combination immunoassayHIV-1 and HIV-2 antibodies Lab Routine Encounter for supervision of normal first in firsttrimester Expected: 03/04/2024 (Approximate), Expires: 03/04/2025[facility] HealthcareComment on above:Expected: 03/04/2024 (Approximate), Expires: 03/04/2025Start: 03-04-2024 End: 71-36-7501Vyuntk Ab [Presence] in Serum by RPRRPR Lab Routine Encounter for supervision of normal first in first trimester Expected: 03/04/2024 (Approximate), Expires: 03/04/2025[facility] HealthcareComment on above:Expected: 03/04/2024 (Approximate), Expires: 03/04/2025Start: 03-04-2024 End: 69-15-4834Esbbfxx antibody, IgGRubella antibody, IgG Lab Routine Encounter for supervision of normal first in first trimester Expected: 03/04/2024 (Approximate), Expires: 03/04/2025[facility] HealthcareComment on above: Expected: 03/04/2024 (Approximate), Expires: 03/04/2025Start: 03-04-2024 End: 51-82-6227FIOCMEF TEST MISCELLANEOUS LABCORPSENDOUT TEST MISCELLANEOUS LABCORP Lab Routine Encounter for supervision of normal first in first trimester Encounter for drug screening Expected: 03/04/2024 (Approximate), Expires: 03/04/2025[facility] HealthcareComment on above:Expected: 03/04/2024 (Approximate), Expires: 03/04/2025Start: 03-04-2024 End: 56-39-1256Hqhirybkmn complete panel - UrineUrinalysis with microscopic Lab Routine Encounter for supervision of normal first in first trimester Expected: 03/04/2024 (Approximate), Expires: 03/04/2025[facility] Work Phone: comment on above:Expected: 03/04/2024 (Approximate), Expires: 03/04/2025Start: 43-90-6700Wbystduqt for malignant neoplasm of cervix [facility] HealthcareStart: 03-65-8919Gylsqtmfz for malignant neoplasm of cervixPap SmearGUNNISON VALLEY [facility]OSPITAL HealthcareBacteria identified in Urine by CultureUrine culture Microbiology STAT 09/30/2024 8:20 AM [facility] Work Phone: [facility] EducationL[facility] Work Phone: [facility] referralL[facility] Work Phone: Streptococcus pyogenes Ag [Presence] in Throat by Rapid immunoassayStrep B screen Microbiology Routine screening for streptococcus B Ordered: 08/31/2024[facility] Work Phone: comment on above:Ordered: 08/31/2024[facility] Immunizations Immunization DateImmunizationNotesCare QlubrlzyCpdbtqdr10-94-5653rfdxivnpb virus vaccine, unspecified formulationRenita Young MD Work Phone: [facility] Payers DatePayer CategoryPayerPolicy [id number] Health Clermont HospitalBC ..[id number] PGE513L01913 2..5.05269[id number] 2..1.955463.3.57[id number] 2..1.637040.3.57[id number] 2..1.083882.3.57[id number] 2..1.562491.3.579.[id number] 2..1.781303.3.579.[id number] 2..1.322487.3.579.2.488154-85-6826Tvneikq14912307 2.16.840.1.302545.3.579.2.07[id number] 2.16.840.1.070101.3.579.2.978[id number] 2.16.840.1.929971.3.579.2.[id number] 2.16.840.1.964052.3.579.2.070307-28-7183Oyanqfk48090284 2.16.840.1.854304.3.579.2.634807-98-8350Tqqxmut16121714 2.16.840.1.256180.3.579.2.155764-35-5282Wdslgiy9286695 2.16.840.1.812584.3.579.2.449550-94-1602Nhjjtmh9879790 2.16.840.1.980505.3.579.2.154179-61-2654Gyqpwft1494500 2.16.840.1.595689.3.579.2.050654-23-7031Oxuvcuu4175223 2.16.840.1.268425.3.579.2.558170-82-3497Huuqqnp8136569 2.16.840.1.315664.3.579.2.408051-37-4912Dbzhuki7545112 2.16.840.1.954499.3.579.2.241992-35-5582Zyqjrxx1729605 2.16.840.1.088895.3.579.2.328018-44-0485Bdtoqov4119721 2.16.840.1.184182.3.579.2.063535-01-8783Iwvpygk4515555 2.16.840.1.774621.3.579.2.845376-75-2471Qziltkj4367862 2.0.1.905830.3.579.2.264940-91-2525Sapfxrw3247235 2..1.658181.3.579.2.839833-38-1162Dytidcw2863110 2..1.851698.3.579.2.495469-84-5348Okirlvj9310297 2..1.362046.3.579.2.881129-20-1113Jtifuvr6944545 2..1.362398.3.579.2.285137-19-9640Yxfyzqe8481101 2..1.561725.3.579.2.173725-84-8452Pvlp-rrzFzayivt1002287 2.0.1.564227.3.579.2.280Shluskv3940978 2..1.787817.3.579.2.593Unknown [id number] 2.840.1.509319.3.579.2.568Qcmnufo08787325 2.0.1.005362.3.579.2.513Utackya80756852 2.0.1.524489.3.579.2.531 Sjvfrvh27077151 2.0.1.015979.3.579.2.448Xmahgem46121516 2.0.1.731873.3.579.2.739Itxhvsf02016233 2.0.1.376687.3.579.2.531 Social History DateTypeDetailFacilityStart: 03-04-2024 End: 62-35-8878Btt Assigned At [facility] [employer] Other Start: 02-24-2024 End: 61-23-8225Ccothac smoking status NHISNever smoked tobacco (finding) [facility]art: 53-66-0238XpzFnwajk (finding)[facility]etart: 64-18-7517Pnm Assigned At BirthFeOhio State University Wexner Medical Centertart: 47-11-2914Qcyscsi use and exposureSmokeless tobacco non-userNOMS HealthcareStart: 03-04-2024 End: 21-49-3291Thwwfkvxi beverage intakeEx-drinker (finding)[facility] Start: 03-04-2024 End: 42-74-5685Dhlsrkf of Social functionNOSC HealthcareStart: 57-69-8998Jcsrgjs CommentCaffeine intake: 1 soda dailyGUNNISON VALLEY [facility]PITAL HealthcareStart: 10-28-1642Zflrmydym [facility] HealthcareStart: 95-84-8175Agj assigned at birthNot on [facility] The thought of harming myself has occurred to [facility] HealthcareStart: 54-87-1253XgwSkrufgJGXR Healthcare Goals DatePatient GoalDesired Activity/State Functional Status EecxGoezclbuztSplqzsUrbwgqfe34-00-3518Wgdesxgowt statusPatient at Baseline [facility] Work Phone: Mental Status SduzYcwurskdfcTqvkdpGxgvmccd59-04-7715Kqxwphdrg functionCognitive Status Patient at BaselinePark[facility] Work Phone: Clinical Notes 11-12-2010 to 01-26-2025 Note Date & AeclLohpPhrjhplq53-77-8258 Telephone encounter Note* Telephone Encounter - Renita Young MD - 01/26/2025 12:45 PM EDT Requests combination pill [facility] LawnWijcsbckvd19-58-6674 Instructions* Patient Instructions* Renita Young MD - 01/26/2025 12:45 PM EDT Switch to Sprintec and end of pack o documented in this [facility]10-15-2025 Miscellaneous Notes* Telephone Encounter - Renita Young MD - 01/26/2025 12:45 PM EDT Requests combination pill documented in this [facility]09-03-2025 History of Present illness Narrative* Renita Young MD - 12/15/2024 10:45 AM EDT Images from the original note were not included. Renita Young MD Obstetrics and Gynecology Patient: Kerri Caceres : 1990 (34 y.o.) Exam Date: 12/15/2024 Reason for Visit - Chief Complaint Patient presents with Follow-up Patient is 2 months and 2 weeks following a caesarian delivery, she is now experiencing a hard spot at the top of her incision, it's a little tender but no pain, redness, fever or drainage, the rest of the incision is still soft , she has never had a incision this large before ,so she does not know how it will heal History of Present Illness History of Present Illness Nicki, a patient, presents for a follow-up visit approximately 3 months after delivery. Her primary concern is a previously experienced swelling in her genital area that has since resolved. The patient reports that following her last visit, she noticed a protruding area in her incisional region that was kind of swollen atop. This swelling became more pronounced when her menstrual period started, but subsequently decreased and resolved as her period progressed. The patient describes this experience as the weirdest thing, which prompted her to contact her healthcare provider. She did not take a picture of the affected area but notes that while it didn't visibly protrude, she could feel it and it felt larger to her. This swelling episode occurred only once and has not recurred. She also reports that her infant is doing well, sleeping during car rides, and showing increasing awareness and responsiveness. The patient expresses pamela and happiness about her baby's development. Visit Vitals LMP 12/31/2023 OB Status Recent Smoking Status Never History of Present Illness, Associated Treatments and Results - OB History Para Term AB Living 1 0 0 0 0 0 SAB IAB Ectopic Multiple Live Births 0 0 0 0 0 # Outcome Date GA Lbr Rick/2nd Weight Sex Type Anes PTL Lv 1 Constitutional: Negative. HENT: Negative. Eyes: Negative. Respiratory: Negative. Cardiovascular: Negative. Gastrointestinal: Negative. Endocrine: Negative. Genitourinary: Negative. Musculoskeletal: Negative. Skin: Negative. Allergic/Immunologic: Negative. Neurological: Negative. Hematological: Negative. Psychiatric/Behavioral: Negative. No Known Allergies Current Outpatient Medications: albuterol HFA 90 mcg/act inhaler, INHALE 2 PUFFS BY MOUTH 4 TIMES A DAY NEEDED, Disp: , Rfl: ferrous sulfate (Fe Tabs) 325 (65 Fe) MG EC tablet, Do not crush, chew, or split., Disp: 30 tablet,Rfl: 11 norethindrone (Micronor) 0.35 MG tablet, Take 1 tablet (0.35 mg) by mouth Daily, Disp: 28 tablet, Rfl: 11 nystatin (Mycostatin) 213318 UNIT/GM powder, Apply topically 3 (three) times a day, Disp: 15 g, Rfl: 0 nystatin (Mycostatin) cream, Apply topically 2 (two) times a day, Disp: 30 g, Rfl: 2 MV & Min w/FA-DHA ( GUMMIES PO), Take by mouth, Disp: , Rfl: triamcinolone (Kenalog) 0.1 % cream, Apply topically 2 (two) times a day, Disp: 30 g, Rfl: 2 No past medical history on file. Past Surgical History: Procedure Laterality Date ABDOMINAL SURGERY 11/2010 CHOLECYSTECTOMY Family History Problem Relation Name Age of Onset Lung cancer Mother Ilia Diabetes Mother Ilia Asthma Mother Ilia Cancer Mother Ilia Hypertension Father Edmund Diabetes Father Edmund COPD Maternal Grandmother Cancer Maternal Grandfather Surinder Cancer Paternal Grandmother [place] Other (thyroid issues) Paternal Grandmother Claudia Heart disease Paternal Grandfather Social History Tobacco Use Smoking Status Never Smokeless Tobacco Never Physical Exam - General appearance, mentation, extraocular movements, facial strength and movement, hearing, upper and lower extremity strength and tone, sensation to gross testing, coordination, and gait are normalor at baseline unless noted below. Physical Exam Constitutional: Appearance: Normal appearance. HENT: Head: Normocephalic and atraumatic. Abdominal: Comments: Incision well No hematoma,hernia or obvious swelling noted Neurological: Mental Status: She is alert and oriented to person, place, and time. Psychiatric: Mood and Affect: Mood normal. Behavior: Behavior normal. Assessment/Plan ICD-10-CM 1. Acute postoperative pain G89.18 2. Incisional pain L76.82 recovery Assessment: Patient is approximately 3 months and reports overall good healing. She experienced a temporary protruding, swollen area that resolved with her menstrual period. On examinationtoday, the area appears to be healing well. It is noted that complete recovery can take up to 6 months . Plan: - Continue to monitor healing process - Patient instructed to return if protruding area recurs for further evaluation - Follow-up as needed or at 6 months for reassessment Assessment & Plan documented in this encounterCox Walnut LawnYhswbbdfqv02-66-5309 History of Present illness Narrative* Renita Young MD - 11/10/2024 1:15 PM EDT Images from the original note were not included. Renita Young MD Obstetrics and Gynecology Patient: Kerri Caceres : 1990 (34 y.o.) Yearly Wellness Exam Date: 11/10/2024 Kerri Caceres is a 34 y.o. female who presents for a visit. She is 5 weeks 5 days following a primary section, low transverse incision. I have fully reviewed the and intrapartum course. The delivery was at 39 gestational weeks 2 days. Anesthesia: epidural. Baby is feeding by breast. Bleeding staining only. Bowel function is normal. Bladder function is normal. Patient is not sexually active. Contraception method is none. depression screening: negative. History of Present Illness Pap 04/06 History of Present Illness Nicki is a patient presenting for a follow-up visit approximately 5 weeks after giving . She reports overall good health and adjustment to motherhood, with her baby growing well and sleeping through the night recently. . She also reports vaginal dryness, likely due to -induced hormonal changes. Nicki expresses interest in resuming physical activities, specifically mentioning her desire to return to [employer] workouts. She is currently and inquires about contraception options that won't interfere with her milk supply. Love describes her emotional state as positive, expressing excitement about her new role as a mother and the baby's development. She reports no significant concerns or complications related to her recovery or the baby's health. Gynecologic History Patient's last menstrual period was 12/31/2023. Contraception: none Last Pap: 03/29/24 Results: normal History of abnormal Pap smear: 04/06 Obstetric History : 1 Para: 1 AB: 0 1 LMP 12/31/2023 Review of Systems All other systems reviewed and are negative. Current Outpatient Medications: albuterol HFA 90 mcg/act inhaler, INHALE 2 PUFFS BY MOUTH 4 TIMES A DAY NEEDED, Disp: , Rfl: ferrous sulfate (Fe Tabs) 325 (65 Fe) MG EC tablet, Do not crush, chew, or split., Disp: 30 tablet,Rfl: 11 nystatin (Mycostatin) 449072 UNIT/GM powder, Apply topically 3 (three) times a day, Disp: 15 g, Rfl: 0 nystatin (Mycostatin) cream, Apply topically 2 (two) times a day, Disp: 30 g, Rfl: 2 MV & Min w/FA-DHA ( GUMMIES PO), Take by mouth, Disp: , Rfl: triamcinolone (Kenalog) 0.1 % cream, Apply topically 2 (two) times a day, Disp: 30 g, Rfl: 2 No Known Allergies Social History Tobacco Use Smoking Status Never Smokeless Tobacco Never Objective Physical Exam Constitutional: Appearance: Normal appearance. Genitourinary: Right Labia: No rash or lesions. Left Labia: No lesions or rash. No vaginal discharge or erythema. No vaginal prolapse present. No vaginal atrophy present. Right Adnexa: not tender and no mass present. Left Adnexa: not tender and no mass present. No cervical lesion. Uterus is not tender. Uterus is anteverted. Breasts: Right: Normal. No mass or nipple discharge. Left: Normal. No mass or nipple discharge. HENT: Head: Normocephalic and atraumatic. Cardiovascular: Rate and Rhythm: Normal rate and regular rhythm. Pulmonary: Breath sounds: Normal breath sounds. Abdominal: General: There is no distension. Palpations: Abdomen is soft. There is no mass. Tenderness: There is no abdominal tenderness. Musculoskeletal: General: Normal range of motion. Cervical back: Neck supple. Lymphadenopathy: Cervical: No cervical adenopathy. Neurological: Mental Status: She is alert and oriented to person, place, and time. Skin: General: Skin is warm and dry. Psychiatric: Mood and Affect: Mood normal. Assessment/Plan Diagnoses and all orders for this visit: care following delivery ([facility]) Acute postoperative pain 40 days exam. Pap smear not done at today's visit. 1. Contraception: none 2. Milk insuffiency Dr Soto 3. Follow up in: 10 week or as needed. 1. care Assessment: Patient is approximately 5 weeks and reports overall good recovery. She is currently without apparent issues. Patient mentions some soreness, which is assessed asnormal for this stage of recovery. No abnormal bleeding or staining reported. Vaginal examination revealed normal appearance. Plan: - Provide topical cream for external use to ensure continued normal healing - Recommend continuing weight restrictions until 8 weeks - Discuss contraception options compatible with - Offer minipill (progestin-only) as it does not affect milk supply - Inform patient to monitor for any decrease in milk flow with contraceptive use - Recommend lubricant (AstroGlide) for vaginal dryness and potential discomfort during intercourse - Educate on expected changes in sexual experience due to hormonal changes and - Follow-up appointment already scheduled Assessment & Plan documented in this encounterCox Walnut [id number] Instructions* Patient Instructions* Renita Young MD - 11/10/2024 1:15 PM EDT ethindrone (oral route) On this page Brand names Description Before using Proper use Precautions Side effects Brand Name US Brand Name Aygestin Samantha Nessa-BE Nor-QD Ortho Micronor Back to top Description Norethindrone is used to prevent . It works by stopping a woman's egg from fully developing each month. The egg can no longer accept a sperm and fertilization () is prevented. Norethindrone is also used to treat secondary amenorrhea (absence of menstrual periods in women whohave previously had a menstrual period who are not ), endometriosis, and irregular menstrual periods caused by hormonal imbalance. No contraceptive method is 100 percent effective. control methods such as having surgery to become sterile or not having sex are more effective than control pills. Discuss your options for control with your doctor. This medicine does not protect against HIV infection or other sexually transmitted diseases. It will not help as emergency contraception, such as after unprotected sexual contact. This medicine is available only with your doctor's prescription. This product is available in the following dosage forms: Tablet Back to top Before Using In deciding to use a medicine, the risks of taking the medicine must be weighed against the good itwill do. This is a decision you and your doctor will make. For this medicine, the following should be considered: Allergies Tell your doctor if you have ever had any unusual or allergic reaction to this medicine or any other medicines. Also tell your health nanny caregiver if you have any other types of allergies, such as to foods, dyes, preservatives, or animals. For non-prescription products, read the label or package ingredients carefully. Pediatric Appropriate studies on the relationship of age to the effects of Ortho Micronor tablets have not been performed in the pediatric population. However, pediatric- specific problems that would limit the usefulness of this medicine in teenagers are not expected. This medicine may be used for control in teenage females but should not be used before the start of menstruation. Use of norethindrone acetate tablets is not recommended in children. Geriatric Appropriate studies on the relationship of age to the effects of norethindrone have not been performed in the geriatric population. This medicine should not be used in elderly women. Substance Name Norethindrone Studies in women suggest that this medication poses minimal risk to the infant when used during . Substance Name Norethindrone Acetate There are no adequate studies in women for determining infant risk when using this medication during . Weigh the potential benefits against the potential risks before taking this medication while . Drug Interactions Although certain medicines should not be used together at all, in other cases two different medicines may be used together even if an interaction might occur. In these cases, your doctor may want to change the dose, or other precautions may be necessary. When you are taking this medicine, it is especially important that your healthcare professional know if you are taking any of the medicines listed below. The following interactions have been selected on the basis of their potential significanceand are not necessarily all-inclusive. Using this medicine with any of the following medicines is not recommended. Your doctor may decide not to treat you with this medication or change some of the other medicines you take. Dasabuvir Fezolinetant Ombitasvir Paritaprevir Ritonavir Tranexamic Acid Using this medicine with any of the following medicines is usually not recommended, but may be required in some cases. If both medicines are prescribed together, your doctor may change the dose or how often you use one or both of the medicines. Amobarbital Amoxicillin Ampicillin Amprenavir Apalutamide Aprepitant Armodafinil Artemether Bacampicillin Belzutifan Betamethasone Bexarotene Boceprevir Bosentan Butabarbital Butalbital Carbamazepine Carbenicillin Cefaclor Cefadroxil Cefdinir Cefditoren Cefixime Cefpodoxime Cefprozil Ceftazidime Ceftibuten Cefuroxime Cenobamate Clobazam Cloxacillin Colesevelam Cyclacillin Cyclosporine Dabrafenib Darunavir Dexamethasone Dicloxacillin Dipyrone Doxycycline Show More Using this medicine with any of the following medicines may cause an increased risk of certain sideeffects, but using both drugs may be the best treatment for you. If both medicines are prescribed together, your doctor may change the dose or how often you use one or both of the medicines. Amitriptyline Atazanavir Atorvastatin Clomipramine Diazepam Doxepin Imipramine Lamotrigine Licorice Lorazepam Parecoxib Selegiline Temazepam Triazolam Valdecoxib Voriconazole Other Interactions Certain medicines should not be used at or around the time of eating food or eating certain types of food since interactions may occur. Using alcohol or tobacco with certain medicines may also cause interactions to occur. The following interactions have been selected on the basis of their potential significance and are not necessarily all-inclusive. Using this medicine with any of the following is not recommended. Your doctor may decide not to treat you with this medication, change some of the other medicines you take, or give you special instructions about the use of food, alcohol, or tobacco. Tobacco Using this medicine with any of the following may cause an increased risk of certain side effects but may be unavoidable in some cases. If used together, your doctor may change the dose or how often you use this medicine, or give you special instructions about the use of food, alcohol, or tobacco. Caffeine Other Medical Problems The presence of other medical problems may affect the use of this medicine. Make sure you tell yourdoctor if you have any other medical problems, especially: Abnormal or unusual vaginal bleeding or Breast cancer, active or history of or Liver disease (eg, liver tumor or cancer)--Should not be used in patients with these conditions. Blood clots (eg, deep vein thrombosis, pulmonary embolism), or history of or Heart attack, history of or Stroke, history of--Norethindrone acetate tablets should not be used in patients with these conditions. Diabetes or Hypercholesterolemia (high cholesterol or fats in the blood) or Hypertension (high blood pressure) or Obesity, or history of or Systemic lupus erythematosus (SLE, autoimmune disorder)--These conditions may increase risk for more serious side effects. Depression, history of or Heart disease or Kidney disease or Migraine headaches or Seizures--Use with caution. May make these conditions worse. Diabetes or Ovarian cyst--Use with caution. Ortho Micronor may make these conditions worse. Back to top Proper Use It is very important that you use this medicine exactly as directed by your doctor. Do not use moreof it, do not use it more often, and do not use it for a longer time than your doctor ordered. This medicine comes with patient instructions. Read and follow these instructions carefully. Ask your doctor or pharmacist if you have any questions. If you are using Ortho Micronor : This medicine is available in a blister card with a tablet dispenser. Each blister card contains 28tablets. Take this medicine at the same time each day. You may take it with or without food. Start the next pack the day after the last pack is finished. There is no break between packs. Your doctor may ask you to begin your dose on the first day of your menstrual period (called Day 1 Start). When you begin on another day, you need to use another form of control (eg, condom, spermicide) for the first 48 hours. If you have a miscarriage or an , you may start the takingthe pill on the next day. You may have light bleeding or spotting when you first take the pill. If you are switching from combined pills to using Ortho Micronor , take the medicine the day after you finish the last active combined pill. Do not take any 7 inactive pills from your previous control pack. If you are switching from a progestin-only pill to using combined pills, take the medicine on the first day of your period, even if your progestin-only pill pack is not finished. If you are switching to another brand, you may start taking it anytime. If you are , you may switch to another control method any time, except do not switch to the combined pills until you stop or at least 6 months after delivery. If you are fully (no formula), you may start your pills 6 weeks after delivery. If you are partially (with some formula), you may start taking your pills 3 weeks after delivery. If you have a miscarriage or , you may take the pills the next day. Take this medicine at least 5 days after using ulipristal acetate. Use another form of control (eg, condom, spermicide) until your next menstrual period. Dosing The dose of this medicine will be different for different patients. Follow your doctor's orders or the directions on the label. The following information includes only the average doses of this medicine. If your dose is different, do not change it unless your doctor tells you to do so. The amount of medicine that you take depends on the strength of the medicine. Also, the number of doses you take each day, the time allowed between doses, and the length of time you take the medicinedepend on the medical problem for which you are using the medicine. For oral dosage form (tablets): For contraception (to prevent ): Adults and teenagers--One tablet taken at the same time each day for 28 days. Children--Use and dose must be determined by your doctor. For treatment of secondary amenorrhea or abnormal vaginal bleeding: Adults--2.5 to 10 milligrams (mg) once a day for 5 to 10 days. Children--Use is not recommended. For treatment of endometriosis: Adults--At first, 5 milligrams (mg) once a day for 2 weeks. Your doctor may increase your dose by 2.5 mg per day every 2 weeks up to 15 mg per day for 6 to 9 months. Children--Use is not recommended. Missed Dose If you miss a dose of this medicine, take it as soon as possible. However, if it is almost time foryour next dose, skip the missed dose and go back to your regular dosing schedule. Do not double doses. This medicine has specific patient instructions on what to do if you miss a dose. Read and follow these instructions carefully, and call your doctor if you have any questions. If you miss a dose, and it is more than 3 hours from your scheduled dose, take the pill as soon as you can, then take your next pill at the next regular time. Use a second form of control (eg, condom, spermicide) for the next 48 hours. If you vomit after taking the pills, use another form of control for the next 48 hours. Storage Store the medicine in a closed container at room temperature, away from heat, moisture, and direct light. Keep from freezing. Keep out of the reach of children. Do not keep outdated medicine or medicine no longer needed. Ask your healthcare professional how you should dispose of any medicine you do not use. Back to top Precautions It is very important that your doctor check your progress at regular visits to make sure this medicine is working properly and does not cause unwanted effects. These visits will usually be every 6 to12 months, but some doctors require them more often. Pelvic exam, breast exam, and mammogram (breast x-ray) may be needed to check for unwanted effects, unless your doctor tells you otherwise. Be sure to keep all appointments. Although you are using this medicine to prevent , you should know that using this medicinewhile you are could harm the unborn baby. If you think you have become while using the medicine, tell your doctor right away. Vaginal bleeding of various amounts may occur between your regular menstrual periods during the first 3 months of use. This is sometimes called spotting when slight, or breakthrough bleeding when heavier. If this should occur, continue with your regular dosing schedule. The bleeding usually stops within 1 week. Check with your doctor if the bleeding continues for morethan 1 week. If bleeding continues after you have been taking hormonal contraceptives on schedule and for more than 3 months, check with your doctor. Check with your doctor right away if you miss a menstrual period. Missed periods may occur if you skip one or more tablets and have not taken your pills exactly as directed. If you miss two periods in a row, talk to your doctor. You might need a test. If you suspect that you may be , stop using this medicine immediately and check with your doctor. Check with your doctor before refilling an old prescription, especially after a . You willneed another physical examination and your doctor may change your prescription. You may have a higher risk of an ovarian cyst or an ectopic (occurs outside the womb) if you get while using this medicine. These can be serious and life-threatening conditions. Itcan also cause problems that may make it harder for you to become in the future. Call yourdoctor right away if you have a sudden or severe lower abdominal or stomach pain. Do not use this medicine if you smoke cigarettes. If you smoke while using control pills, youincrease your risk of having a heart attack, stroke, or blood clot. Your risk is even higher if youhave diabetes, high blood pressure, high cholesterol, or if you are overweight. Talk with your doctor about ways to stop smoking. Keep your diabetes under control. Ask your doctor about diet and exerc ise to control your weight and blood cholesterol level. Check with your doctor immediately if you have trouble wearing contact lenses or if blurred vision,difficulty with reading, or any other change in vision occurs during or after treatment. Your doctor may want you to have your eyes checked by an information support project manager (eye doctor). Before you have any medical tests, tell the medical doctor in charge that you are taking this medicine. The results of some tests may be affected by this medicine. Do not take other medicines unless they have been discussed with your doctor. This includes prescription or nonprescription ([id number] [OTC]) medicines and herbal (eg, [place]'s wort) or vitamin supplements. Back to top Side Effects Along with its needed effects, a medicine may cause some unwanted effects. Although not all of these side effects may occur, if they do occur they may need medical attention. Check with your doctor immediately if any of the following side effects occur: More common Frequent and irregular bleeding menstrual changes Incidence not known Blindness blue-yellow color blindness blurred vision breast pain changes in menstrual period changes in vision chest tightness chills mike-colored stools confusion cough dark urine decreased vision diarrhea difficulty with swallowing discouragement dizziness double vision eye pain fast heartbeat feeling sad or empty fever general tiredness and weakness headache heavy non-menstrual vaginal bleeding hives, itching, or rash irritability lack of appetite light-colored stools light vaginal bleeding between regular menstrual periods loss of interest or pleasure migraine headache nausea and vomiting numbness of the hands pain, redness, or swelling in the arm or leg puffiness or swelling of the eyelids or around the eyes, face, lips, or tongue stomach pain swelling trouble concentrating trouble sleeping unpleasant breath odor unusual tiredness or weakness upper right abdominal or stomach pain vomiting of blood yellow eyes and skin Some side effects may occur that usually do not need medical attention. These side effects may go away during treatment as your body adjusts to the medicine. Also, your health nanny caregiver may be able to tell you about ways to prevent or reduce some of these side effects. Check with your health nanny caregiver if any of the following side effects continue or are bothersome or if you have any questions about them: More common Breast tenderness increased hair growth, especially on the face pimples weight gain Incidence not known Brown, blotchy spots on exposed skin enlarged breasts loss or thinning of the hair mood swings nervousness weight changes documented in this encounterCox Walnut [id number] History of Present illness Narrative* Renita Young MD - 10/20/2024 9:30 AM EDT Images from the original note were not included. Renita Young MD Obstetrics and Gynecology Patient: Kerri Caceres : 1990 (34 y.o.) Yearly Wellness Exam Date: 10/20/2024 Kerri Caceres is a 34 y.o. female who presents for a visit. She is 2 weeks and 5 days following a primary section, low transverse incision. I have fully reviewed the and intrapartum course. The delivery was at 39 gestational weeks and 1 day. Anesthesia: epidural. Baby is feeding by breast. Bleeding staining only. Bowel function is normal. Bladder function isnormal. Patient is not sexually active. Contraception method is none. depression screening: negative. History of Present Illness T The patient has recently returned to work after taking 12 weeks of maternity leave. She notes that her colleagues were surprised by her decision to take the full leave, indicating some workplace stress or misunderstanding. Her partner reportedly took 2 weeks off for paternity leave. Regarding her infant, the patient reports that the baby has been feeding well, describing the baby as hungry all the time. She mentions that the baby slept for about 3 hours at one point, suggesting some disruption to the patient's sleep schedule. No specific concerns about the infant's health are raised. The patient's obstetric history indicates this is her first ( A0 L0). Gynecologic History Patient's last menstrual period was 12/31/2023. Contraception: none Last Pap: 03/29/24 Results: normal Last Mammogram: No history Obstetric History : 1 Para: 1 AB: 0 1 LMP 12/31/2023 Review of Systems Current Outpatient Medications: albuterol HFA 90 mcg/act inhaler, INHALE 2 PUFFS BY MOUTH 4 TIMES A DAY NEEDED, Disp: , Rfl: cephalexin (Keflex) 500 MG capsule, Take 1 capsule (500 mg) by mouth in the morning and 1 capsule (500 mg) at noon and 1 capsule (500 mg) in the evening and 1 capsule (500 mg) before bedtime. Do all this for 10 days., Disp: 40 capsule, Rfl: 0 ferrous sulfate (Fe Tabs) 325 (65 Fe) MG EC tablet, Do not crush, chew, or split., Disp: 30 tablet,Rfl: 11 nystatin (Mycostatin) [id number] UNIT/GM powder, Apply topically 3 (three) times a day, Disp: 15 g, Rfl: 0 nystatin (Mycostatin) cream, Apply topically 2 (two) times a day, Disp: 30 g, Rfl: 2 MV & Min w/FA-DHA ( GUMMIES PO), Take by mouth, Disp: , Rfl: triamcinolone (Kenalog) 0.1 % cream, Apply topically 2 (two) times a day, Disp: 30 g, Rfl: 2 No Known Allergies Social History Tobacco Use Smoking Status Never Smokeless Tobacco Never Objective Physical Exam Constitutional: Appearance: Normal appearance. HENT: Head: Normocephalic and atraumatic. Neurological: Mental Status: She is alert and oriented to person, place, and time. Psychiatric: Mood and Affect: Mood normal. Behavior: Behavior normal. Incision healing well Redness decreased Assessment/Plan Diagnoses and all orders for this visit: care following delivery ([facility]) Acute postoperative pain 2 weeks and 5 days exam. Pap smear not done at today's visit. 1. Contraception: none 2. Pt is doing well 3. Follow up in: 4 weeks or as needed. Assessment & Plan documented in this encounterCox Walnut [id number] History of Present illness Narrative* Renita Young MD - 10/13/2024 9:15 AM EDT Images from the original note were not included. Renita Young MD Obstetrics and Gynecology Patient: Kerri Caceres : 1990 (34 y.o.) Yearly Wellness Exam Date: 10/13/2024 Kerri Caceres is a 34 y.o. female who presents for a visit. She is 13 days following a primary section, low transverse incision. I have fully reviewed the and intrapartum course. The delivery was at 39 gestational weeks. Anesthesia: epidural. Baby is feeding by breast. Bleeding no bleeding. Bowel function is normal. Bladder function is normal. Patient is not sexually active. Contraception method is none. depression screening: negative. History of Present Illness Gynecologic History Patient's last menstrual period was 12/31/2023. Contraception: none Last Pap: 03/29/24 Results: normal History of abnormal Pap smear: no Obstetric History : 1 Para: 1 AB: 0 1 BP 122/72 (BP Location: Left arm) Wt 249 lb LMP 12/31/2023 Unknown BMI 37.58 kg/m Review of Systems All other systems reviewed and are negative. Current Outpatient Medications: albuterol HFA 90 mcg/act inhaler, INHALE 2 PUFFS BY MOUTH 4 TIMES A DAY NEEDED, Disp: , Rfl: ferrous sulfate (Fe Tabs) 325 (65 Fe) MG EC tablet, Do not crush, chew, or split., Disp: 30 tablet,Rfl: 11 nystatin (Mycostatin) [id number] UNIT/GM powder, Apply topically 3 (three) times a day, Disp: 15 g, Rfl: 0 nystatin (Mycostatin) cream, Apply topically 2 (two) times a day, Disp: 30 g, Rfl: 2 MV & Min w/FA-DHA ( GUMMIES PO), Take by mouth, Disp: , Rfl: triamcinolone (Kenalog) 0.1 % cream, Apply topically 2 (two) times a day, Disp: 30 g, Rfl: 2 No Known Allergies Social History Tobacco Use Smoking Status Never Smokeless Tobacco Never Objective Physical Exam Constitutional: Appearance: Normal appearance. HENT: Head: Normocephalic and atraumatic. Neurological: Mental Status: She is alert and oriented to person, place, and time. Psychiatric: Mood and Affect: Mood normal. Behavior: Behavior normal. Incision healing well with some erythema Assessment/Plan Diagnoses and all orders for this visit: Acute postoperative pain - cephalexin (Keflex) 500 MG capsule; Take 1 capsule (500 mg) by mouth in the morning and 1 capsule(500 mg) at noon and 1 capsule (500 mg) in the evening and 1 capsule (500 mg) before bedtime. Do all this for 10 days. 13 exam. Pap smear not done at today's visit. 1. Contraception: none 2. Keflex for incisional erythema 3. Follow up in: 1weeks or as needed. Assessment & Plan documented in this encounterCox Walnut [id number] Evaluation note* Diagnosis Onset Date Resolution Status Admit Date 39 weeks gestation of resolvedJune 2024 8:01amPostpartum examination following delivery resolvedJun2024 8:01am [facility] Work Phone: [phone] 306-194106-18-2025 History of Present illness Narrative* Renita Young MD - 09/29/2024 10:45 AM EDT Subjective Kerri Caceres is a 34 y.o. at 39w0d with a working estimated date of delivery of 10/06/2024, by Last Menstrual Period who presents for a routine visit. She denies vaginal bleeding, leakage of fluid, decreased movements, or contractions. Her is complicated by: BN Rhogam TDAP Francesca AMA gbs BPP4/8 NST equivocal History of Present Illness Objective Physical Exam: Expected Total Weight Gain: 11 lb-19 lb Pregravid BMI: 35.60 Labs Urine Dip: Lab Results Component Value Date KETONESU Negative 09/21/2024 PROTEINUR Negative 03/04/2024 GLUCOSEUR Negative 09/21/2024 LEUKOCYTESUR Negative 09/21/2024 Lab Results Component Value Date HGB 11.6 (L) 07/09/2024 HCT 34.6 07/09/2024 LABANTI Negative 03/04/2024 LABRPR Non Reactive 03/04/2024 HEPBSAG Negative 03/04/2024 RUBELLAIGGQT 3.49 03/04/2024 No results found for: PAPPA , AFP , HCG , ESTRIOL , INHBA Lab Results Component Value Date GLUT1 119 07/09/2024 Assessment/Plan Diagnoses and all orders for this visit: Third trimester ([facility]) Vaginal bleeding during ([facility]) Intertrigo Rh negative status during in second trimester ([facility]) Anemia, unspecified type 39 weeks gestation of ([facility]) Continue vitamin. Expected mode of delivery VD Follow up in 1 week for a routine visit. L&D for failed BPP Daley score 0 Probable CB Assessment & Plan documented in this [facility]06-18-2025 History of Present illness Narrative* Cristina Perez MA - 09/29/2024 10:30 AM EDT Non-Stress Test heart variability: moderate Heart Rate decelerations: variable acoustic stimulator: no Heart Rate accelerations: yes Baseline FHR: 135 per minute Non-stress Test: reactive Uterine irritability: no Uterine contractions: none Diagnosis Plan 1. 39 weeks gestation of ([facility]) 2. Vaginal bleeding during ([facility]) documented in this [facility]06-10-2025 History of Present illness Narrative* Nora Spivey RN - 09/21/2024 2:45 PM EDT Non-Stress Test 09/21/2024 heart variability: moderate Heart Rate decelerations: variable acoustic stimulator: no Heart Rate accelerations: yes Baseline FHR: 135 per minute Non-stress Test: reactive Uterine contractions: none Diagnosis Plan 1. 37 weeks gestation of 2. Vaginal bleeding during documented in this encounterCox Walnut [id number] History of Present illness Narrative* Renita Young MD - 09/21/2024 2:15 PM EDT Subjective Kerri Caceres is a 34 y.o. at 37w6d with a working estimated date of delivery of 10/06/2024, by Last Menstrual Period who presents for a routine visit. She denies vaginal bleeding, leakage of fluid, decreased movements, or contractions. Spotting last week Her is complicated by: BN Rhogam TDAP Francesca AMA gbs History of Present Illness The patient's surgical history includes a pending surgery for cornual . The patient is a woman presenting for a routine visit. She reports consistent useof tea, drinking at least two bags twice daily, with efforts to increase to three times aday. Recent healthcare interactions include a biophysical profile performed last week, which showed the fetus was in a head-first position at that time. The patient's last recorded weight was 6 pounds 3 ounces, though there is some uncertainty about when this measurement was taken. The patient's current shows the fetus appears to be in breech position. She has a previous history with a weight of 6 pounds 2 ounces. The patient is taking red raspberry leaf tea as a supplement, consuming 2-3 times a day with 2 tea bags each time. This is the only reported substance use, with the patient attempting to drink the tea 2-3 times per day. Objective Physical Exam: Expected Total Weight Gain: 11 lb-19 lb Pregravid BMI: 35.60 Labs Urine Dip: Lab Results Component Value Date KETONESU Negative 09/14/2024 PROTEINUR Negative 03/04/2024 GLUCOSEUR Negative 09/14/2024 LEUKOCYTESUR Negative 09/14/2024 Lab Results Component Value Date HGB 11.6 (L) 07/09/2024 HCT 34.6 07/09/2024 LABANTI Negative 03/04/2024 LABRPR Non Reactive 03/04/2024 HEPBSAG Negative 03/04/2024 RUBELLAIGGQT 3.49 03/04/2024 No results found for: PAPPA , AFP , HCG , ESTRIOL , INHBA Lab Results Component Value Date GLUT1 119 07/09/2024 Assessment/Plan Diagnoses and all orders for this visit: Third trimester - POCT urinalysis dipstick manually resulted 37 weeks gestation of - POCT urinalysis dipstick manually resulted Vaginal bleeding during Intertrigo Rh negative status during in second trimester Anemia, unspecified type Continue vitamin. Expected mode of delivery VD Follow up in 1 week for a routine visit. Assessment & Plan 3. Potential malpresentation (breech): - Assessment: Previously noted cephalic presentation during biophysical profile. Current concerns about possible breech presentation due to elevated heart rate. - Plan: a) Perform ultrasound next week to assess position. b) Continue monitoring with non-stress test (NST). c) Reassess heart rate at next visit. 4. Elevated heart rate: - Assessment: heart rate significantly elevated, described as really high and at the top of the monitoring scale. - Plan: a) Continue monitoring. b) Perform non-stress test (NST) at next visit. c) Evaluate heart rate trends. 5. Management of late-term : - Assessment: Late-term , previous ultrasound estimated weight at 6 pounds 3 ounces.Patient advised to drink raspberry leaf tea. - Plan: a) Continue raspberry leaf tea consumption: minimum 2 bags, 2 times daily; goal of 2 bags, 3 times daily. b) Monitor for signs of labor onset. c) Follow up next week for reassessment. 6. follow-up: - Plan: a) Scheduled for follow-up next week. documented in this encounterCox Walnut [id number] History of Present illness Narrative* Nroa Spivey RN - 09/14/2024 2:30 PM EDT Non-Stress Test heart variability: moderate Heart Rate decelerations: variable acoustic stimulator: no Heart Rate accelerations: yes Baseline FHR: 125 per minute Non-stress Test: reactive Uterine contractions: none Diagnosis Plan 1. 36 weeks gestation of 2. Vaginal bleeding during documented in this encounterCox Walnut [id number] History of Present illness Narrative* Renita Young MD - 09/14/2024 12:30 PM EDT Subjective Kerri Caceres is a 34 y.o. at 36w6d with a working estimated date of delivery of 10/06/2024, by Last Menstrual Period who presents for a routine visit. She denies vaginal bleeding, leakage of fluid, decreased movements, or contractions. Post exam bleeding with closed cx for 3 days Her is complicated by: BN Rhogam TDAP Francesca AMA gbs History of Present Illness The patient presents with a history of spotting for several days following a previous exam. She reports that the spotting began on Friday and was still present on Friday. The patient expresses concern about the persistence of the spotting, noting that it made her nervous initially, but she was able to calm herself. She mentions that she had been expecting the spotting to resolve sooner. The patient's review of systems is positive for spotting in the genitourinary system. Objective Physical Exam: Expected Total Weight Gain: 11 lb-19 lb Pregravid BMI: 35.60 Labs Urine Dip: Lab Results Component Value Date KETONESU Negative 09/08/2024 PROTEINUR Negative 03/04/2024 GLUCOSEUR Negative 09/08/2024 LEUKOCYTESUR Negative 09/08/2024 Lab Results Component Value Date HGB 11.6 (L) 07/09/2024 HCT 34.6 07/09/2024 LABANTI Negative 03/04/2024 LABRPR Non Reactive 03/04/2024 HEPBSAG Negative 03/04/2024 RUBELLAIGGQT 3.49 03/04/2024 No results found for: PAPPA , AFP , HCG , ESTRIOL , INHBA Lab Results Component Value Date GLUT1 119 07/09/2024 I Assessment/Plan Diagnoses and all orders for this visit: Third trimester - POCT urinalysis dipstick manually resulted 36 weeks gestation of - POCT urinalysis dipstick manually resulted Intertrigo Rh negative status during in second trimester Anemia, unspecified type Continue vitamin. Expected mode of delivery VD Follow up in 1 week for a routine visit. Assessment & Plan 1. Post-examination spotting: - Assessment: - Patient reports spotting for several days following a previous examination - Spotting noted on Friday, December 20, with uncertainty about its continuation - Exact date of last menstrual period not clearly stated - Plan: a) Perform ultrasound examination to assess for any visible abnormalities b) Place patient on monitor for reassurance and to evaluate well-being c) Conduct follow-up discussion with patient after completion of ultrasound and monitoring BPP 11/19 stefani 10.5 cm NST reactive today documented in this encounterCox Walnut [id number] History of Present illness Narrative* Renita Young MD - 09/08/2024 9:30 AM EDT Subjective Kerri Caceres is a 34 y.o. at 36w0d with a working estimated date of delivery of 10/06/2024, by Last Menstrual Period who presents for a routine visit. She denies vaginal bleeding, leakage of fluid, decreased movements, or contractions. Her is complicated by: BN Rhogam TDAP Francesca AMA gbs History of Present Illness The patient, Kerri, is and presents for a follow-up appointment. She reports experiencing some spotting after her last appointment, which resolved by the next morning. Kerri mentions that she has been engaging in walking exercises, possibly overdoing it, which led to some discomfort. She describes feeling like she was moving down during her walks. Kerri has been following a treatment regimen involving vaginal suppositories. She reports progress, stating that she can now reach everywhere more easily and that the area feels softer. She has increased the frequency of suppository use to 3 times a day, using 2 bags each time. The patient also mentions that she tested positive for Group B Streptococcus (GBS) and will requirepenicillin treatment. She expresses that this is not a major concern. Kerri has an allergy to penicillin, though the specific reaction is not mentioned. In terms of social history, Kerri enjoys outdoor activities, mentioning fishing and growing plants. She engages in walking for physical activity. The review of systems indicates positive findings for difficulty walking in the musculoskeletal system and spotting in the genitourinary system. Objective Physical Exam: Expected Total Weight Gain: 11 lb-19 lb Pregravid BMI: 35.60 Labs Urine Dip: Lab Results Component Value Date HGB 11.6 (L) 07/09/2024 HCT 34.6 07/09/2024 LABANTI Negative 03/04/2024 LABRPR Non Reactive 03/04/2024 HEPBSAG Negative 03/04/2024 RUBELLAIGGQT 3.49 03/04/2024 No results found for: PAPPA , AFP , HCG , ESTRIOL , INHBA Lab Results Component Value Date GLUT1 119 07/09/2024 Assessment/Plan Diagnoses and all orders for this visit: Third trimester - POCT urinalysis dipstick manually resulted 36 weeks gestation of - POCT urinalysis dipstick manually resulted Rh negative status during in second trimester Anemia, unspecified type Continue vitamin. Expected mode of delivery VD Follow up in 1 week for a routine visit. Assessment: - Patient is in active care - Recent increased physical activity (walking), possibly leading to overexertion - Positive Group B Streptococcus (GBS) screening based on lab results - Plan: a) Continue care with follow-up appointment in one week b) Administer penicillin for GBS-positive status during labor c) Recommend hydration and moderation of physical activity d) Continue perineal massage 3 times daily with 2 bags each time e) Encourage drinking tea to facilitate cervical examination at next visit 2. Vaginal spotting post exam - Assessment: - Experienced spotting after last appointment, as anticipated - Spotting was minimal and resolved by the following morning - Plan: a) Monitor for any recurrence or increase in vaginal bleeding b) Patient to report any concerning symptoms LIG Assessment & Plan documented in this encounterCox Walnut [id number] History of Present illness Narrative* Renita Young MD - 08/31/2024 12:30 PM EDT Subjective Kerri Caceres is a 34 y.o. at 34w5d with a working estimated date of delivery of 10/06/2024, by Last Menstrual Period who presents for a routine visit. She denies vaginal bleeding, leakage of fluid, decreased movements, or contractions. Her is complicated by: BN Rhogam TDAP Francesca AMA History of Present Illness The patient presents for a visit. She underwent an ultrasound examination today. She reports no contractions or cramping. The fetus exhibits active movement, which she perceives both superiorly and inferiorly. She acknowledges the need to augment her hydration. Group B strep culture was discussed, noting the importance of gbs esting by 35 weeks. She is currently at 34 weeks and 6 days gestation. The cervix is closed, and there has been no spotting. OBSTETRICAL HISTORY: Obstetrics History discussed 1, Para 0 Gestational age: 34 weeks and 6 days The patient is a woman presenting for routine visit. The patient reports good movement, feeling it both at the top and bottom of her abdomen. To manage her symptoms, the patient has been trying to stay hydrated and has been walking. She alsotook a nap this morning. She has not reported any other concerning symptoms or complications. The patient has been recommended to start red raspberry leaf tea by the end of the week, twice a day. She reports walking for physical activity. The patient reports fatigue, irregular contractions, and positive movement. Objective Physical Exam: Expected Total Weight Gain: 11 lb-19 lb Pregravid BMI: 35.60 Labs Urine Dip: Lab Results Component Value Date KETONESU Negative 06/15/2024 PROTEINUR Negative 03/04/2024 GLUCOSEUR Negative 08/17/2024 LEUKOCYTESUR Negative 06/15/2024 Lab Results Component Value Date HGB 11.6 (L) 07/09/2024 HCT 34.6 07/09/2024 LABANTI Negative 03/04/2024 LABRPR Non Reactive 03/04/2024 HEPBSAG Negative 03/04/2024 RUBELLAIGGQT 3.49 03/04/2024 No results found for: PAPPA , AFP , HCG , ESTRIOL , INHBA Lab Results Component Value Date GLUT1 119 07/09/2024 Assessment/Plan Diagnoses and all orders for this visit: screening for streptococcus B - Strep B screen Third trimester - POCT urinalysis dipstick manually resulted 34 weeks gestation of - POCT urinalysis dipstick manually resulted Intertrigo Rh negative status during in second trimester Anemia, unspecified type Continue vitamin. Labs reviewed. GBS taken. Expected mode of delivery VD Follow up in 1 week for a routine visit. Assessment & Plan 1. visit. Her weight is within the normal range. The ultrasound results indicate a healthy , with the fetus appearing to be positioned at the top of the uterus. The cervix remains closed. Currently at34 1. Routine care: - Assessment: - Patient attending regular visits - No specific concerns or complications reported during this visit - Plan: a) Continue routine care b) Patient reports movement at top and bottom of uterus. 1. Routine care: - Assessment: - Patient attending regular visits - No specific concerns or complications reported during this visit - Plan: a) Continue routine care b) Patient reports movement at top and bottom of uterus. c) Recommend activities to promote labor progression: - Use of exercise ball for bouncing - Walking - Consume red raspberry leaf tea twice daily starting at the end of the week - Consume pineapple to aid cervical ripening documented in this encounterCox Walnut [id number] History of Present illness Narrative* Renita Young MD - 08/17/2024 2:45 PM EDT Subjective Kerri Caceres is a 34 y.o. at 32w5d with a working estimated date of delivery of 10/06/2024, by Last Menstrual Period who presents for a routine visit. She denies vaginal bleeding, leakage of fluid, decreased movements, or contractions. Her is complicated by: BN Rhogam TDAP Francesca AMA History of Present Illness The patient presents for a routine visit. She reports no complications with her , including the absence of contractions or bleeding.The baby is moving well. She has experienced some weight gain but does not have any significant swelling in her feet. The baby appears to be measuring ahead, and an ultrasound was previously performed in 06/2024, which showed normal weight. Another ultrasound is planned in two weeks to monitor the baby's growth and position. OBSTETRICAL HISTORY: 1, Para 0. Gestational age: 30 weeks. The patient presents for a routine visit and reports that things are going well with no significant problems. She states that the baby is moving, and she is not experiencing any contractions. The patient mentions that her uterine measurements have been larger than expected. A previous ultrasound in June showed normal growth, but recent measurements have been on the high side. The patient notes that the baby seems to be caught up in the corner of [her] uterus, which has caused some stretching. Despite this, the patient does not express any specific concerns or discomfort related to these observations. The patient is currently with movement present and no current contractions reported.She appears willing to receive an unspecified vaccine during the visit. A review of systems indicates no contractions. Objective Physical Exam: Expected Total Weight Gain: 11 lb-19 lb Pregravid BMI: 35.60 Labs Urine Dip: Lab Results Component Value Date KETONESU Negative 06/15/2024 PROTEINUR Negative 03/04/2024 GLUCOSEUR Negative 08/03/2024 LEUKOCYTESUR Negative 06/15/2024 Lab Results Component Value Date HGB 11.6 (L) 07/09/2024 HCT 34.6 07/09/2024 LABANTI Negative 03/04/2024 LABRPR Non Reactive 03/04/2024 HEPBSAG Negative 03/04/2024 RUBELLAIGGQT 3.49 03/04/2024 No results found for: PAPPA , AFP , HCG , ESTRIOL , INHBA Lab Results Component Value Date GLUT1 119 07/09/2024 Assessment/Plan Diagnoses and all orders for this visit: Third trimester - POCT urinalysis dipstick manually resulted 32 weeks gestation of - POCT urinalysis dipstick manually resulted Intertrigo Rh negative status during in second trimester Anemia, unspecified type Continue vitamin. Expected mode of delivery VD Follow up in 1 week for a routine visit. Assessment & Plan 1 1. , uncomplicated: - Assessment: - No reported problems - movement present - No contractions - Previous ultrasound in June showed appropriate growth - Current fundal height measurement larger than expected - Fetus positioned in corner of uterus, potentially causing uterine stretching - Previous ultrasound showed 40th percentile weight (within normal limits for kelley ) - Plan: a) Follow-up appointment in 2 weeks b) Schedule ultrasound to assess weight and growth c) Reassess fundal height at next visit 2. Routine care: - Assessment: - Patient attending regular visits - No specific concerns or complications reported during this visit - Plan: a) Continue routine care documented in this encounterCox Walnut [id number] History of Present illness Narrative* Renita Young MD - 08/03/2024 8:30 AM EDT Subjective Kerri Caceres is a 34 y.o. at 30w6d with a working estimated date of delivery of 10/06/2024, by Last Menstrual Period who presents for a routine visit. She denies vaginal bleeding, leakage of fluid, decreased movements, or contractions. Her is complicated by: BN Rhogam TDAP Francesca AMA The patient presents for a routine visit. She reports no significant issues or concerns. The patient denies any contractions, labor, or vaginal bleeding. She states that everything is going well with the , and the baby's movements are normal. The patient does not report any discomfort or other -related symptoms at this time. The patient's current is being monitored for contractions and vaginal bleeding. She has no current complaints of contractions, leaking fluid, or vaginal bleeding. Her next appointment is scheduled in 2 weeks. Regarding immunizations, the patient mentions she has already received the Tdap vaccine,from local pharmacy. A review of systems shows negative findings for vaginal bleeding in the genitourinary system. Othersystems are negative for contractions, labor, or leakage of fluid. Objective Physical Exam: Expected Total Weight Gain: 11 lb-19 lb Pregravid BMI: 35.60 Labs Urine Dip: Lab Results Component Value Date KETONESU Negative 06/15/2024 PROTEINUR Negative 03/04/2024 GLUCOSEUR Negative 07/13/2024 LEUKOCYTESUR Negative 06/15/2024 Lab Results Component Value Date HGB 11.6 (L) 07/09/2024 HCT 34.6 07/09/2024 LABANTI Negative 03/04/2024 LABRPR Non Reactive 03/04/2024 HEPBSAG Negative 03/04/2024 RUBELLAIGGQT 3.49 03/04/2024 No results found for: PAPPA , AFP , HCG , ESTRIOL , INHBA Lab Results Component Value Date GLUT1 119 07/09/2024 Assessment/Plan Diagnoses and all orders for this visit: Third trimester - POCT urinalysis dipstick manually resulted 30 weeks gestation of - POCT urinalysis dipstick manually resulted Intertrigo Rh negative status during in second trimester Anemia, unspecified type Assessment & Plan 1. Routine visit - Reports no contractions, leakage of fluid, or vaginal bleeding - Baby is moving well - Received Tdap vaccine at [facility] - Advised to monitor for more than 4 contractions or painful Davion Hernandez in an hour, any leakage of fluid, or vaginal bleeding - Contact clinic immediately if any of these symptoms occur Follow-up Follow up in 2 weeks Continue vitamin. Expected mode of delivery VD Follow up in 2 week for a routine visit. 1. Routine care: - Assessment: a) Patient is progressing normally in her with no reported c c) Fetus appears to be developing appropriately. - Plan: a) Continue routine care. b) Provide patient education on signs and symptoms to monitor (>4 contractions/hour, painful contractions, fluid leakage, vaginal bleeding). c) Schedule follow-up appointment in 2 weeks. documented in this [facility]04-01-2025 History of Present illness Narrative* Renita Young MD - 07/13/2024 2:45 PM EDT Subjective Kerri Caceres is a 34 y.o. at 27w6d with a working estimated date of delivery of 10/06/2024, by Last Menstrual Period who presents for a routine visit. She denies vaginal bleeding, leakage of fluid, decreased movements, or contractions. Her is complicated by:Hb 11.6 BN Francesca AMA The patient presents with concerns about her hemoglobin levels, which were reported as borderline. She is currently in the early stages of . The patient is already taking vitamins without iron She has been advised to take iron supplements to address the low hemoglobin levels, considering herpregnancy status and the expected increase in blood flow. The patient is currently taking vitamins (without iron) and has been prescribed an iron supplement (1 per day). The patient's social history includes being on a diet, t. She is taking vitamins without iron as a supplement. Objective Physical Exam Expected Total Weight Gain: 11 lb-19 lb Pregravid BMI: 35.60 Labs Urine dip: Lab Results Component Value Date KETONESU Negative 06/15/2024 PROTEINUR Negative 03/04/2024 GLUCOSEUR Negative 06/15/2024 LEUKOCYTESUR Negative 06/15/2024 Lab Results Component Value Date HGB 11.6 (L) 07/09/2024 HCT 34.6 07/09/2024 LABANTI Negative 03/04/2024 LABRPR Non Reactive 03/04/2024 HEPBSAG Negative 03/04/2024 RUBELLAIGGQT 3.49 03/04/2024 No results found for: PAPPA , AFP , HCG , ESTRIOL , INHBA Lab Results Component Value Date GLUT1 119 07/09/2024 Assessment/Plan Diagnoses and all orders for this visit: Anemia, unspecified type - ferrous sulfate (Fe Tabs) 325 (65 Fe) MG EC tablet; Do not crush, chew, or split. Second trimester - Urine dip 27 weeks gestation of - Urine dip Intertrigo - Urine dip Rh negative status during in second trimester - Urine dip Continue vitamin. Labs reviewed. Rhogam B- GTT Normal Follow up in 2 weeks for a routine visit. 1. Borderline anemia in : - Hemoglobin level is borderline low, consistent with mild anemia in - Plan: a) Initiate iron supplementation b) Continue vitamins (current formulation does not contain iron) c) Take one iron supplement daily d) Monitor for constipation as a potential side effect of iron supplementation e) Provide prescription for iron supplement f) Schedule follow-up to reassess hemoglobin levels Assessment & Plan 1. Low hemoglobin. Her weight remains stable. She is advised to take iron supplements once daily to address the low hemoglobin levels. She is cautioned about the potential side effect of constipation from iron supplements. A prescription for a stool softener was offered but declined, opting to purchase an raop-bke-kjvmycg alternative instead. 2. . She has received her RhoGAM injection. She is advised to continue her current regimen of vitamins with iron. She is instructed to seek immediate medical attention if she experiences contractions lasting more than 4 hours or any instances of vaginal bleeding. Follow-up The patient will follow up in 2 weeks. 2. Dietary management: - Plan: a) Consider potential management through dietary changes documented in this encounterCox Walnut [id number] History of Present illness Narrative* Renita Young MD - 06/15/2024 12:45 PM EST Subjective Kerri Caceres is a 34 y.o. at 23w6d with a working estimated date of delivery of 10/06/2024, by Last Menstrual Period who presents for a routine visit. She denies vaginal bleeding, leakage of fluid, decreased movements, or contractions. Her is complicated by: BN Francesca AMA Rhogam and glucose orders placed and given to patient, to be completed at 27 weeks gestation. The patient is a 34-year-old female at approximately 23 weeks gestation presenting for routine care. She reports feeling movement, describing it as wiggling and startling. The patient mentions that movement patterns are still irregular, stating I have been learning it and it's just so, I guess, random at this point. The patient denies any contractions, leakage of fluid, or vaginal bleeding. Review of Systems: - Obstetrical: movement present - Obstetrical: No contractions - Obstetrical: No leakage of fluid - Obstetrical: No vaginal bleeding Objective Physical Exam Expected Total Weight Gain: 11 lb-19 lb Pregravid BMI: 35.60 Labs Urine dip: Lab Results Component Value Date KETONESU Negative 05/18/2024 PROTEINUR Negative 03/04/2024 GLUCOSEUR Negative 05/18/2024 LEUKOCYTESUR Negative 05/18/2024 Lab Results Component Value Date HGB 12.9 03/04/2024 HCT 39.1 03/04/2024 LABANTI Negative 03/04/2024 LABRPR Non Reactive 03/04/2024 HEPBSAG Negative 03/04/2024 RUBELLAIGGQT 3.49 03/04/2024 Assessment/Plan Diagnoses and all orders for this visit: 23 weeks gestation of - Urine dip Second trimester Intertrigo Screening for diabetes mellitus (DM) - Hemoglobin and hematocrit, blood; Future - Glucose tolerance, 1 hour; Future Blood typing encounter - rho,D, immune globulin (RhoGAM Ultra-Filtered Plus) 1500 units injection; Inject 1 mL (1,500 Units) into the shoulder, thigh, or buttocks 1 (one) time for 1 dose 300mcg as directed per rhogam workup Rh negative status during in second trimester - rho,D, immune globulin (RhoGAM Ultra-Filtered Plus) 1500 units injection; Inject 1 mL (1,500 Units) into the shoulder, thigh, or buttocks 1 (one) time for 1 dose 300mcg as directed per rhogam workup - RHOGAM WORKUP [place] [place] Future Encounter for blood typing - RHOGAM WORKUP ([facility] [place] Future Continue vitamin. Labs reviewed. Rhogam ordered today, B- GTT Ordered today. 1. Routine care at 23 weeks gestation: - Patient is at 23 weeks gestation with an uncomplicated - Recent ultrasound findings: a) weight at 40th percentile (within normal range) b) Normal cervix, heart, and lungs - Patient reports feeling movement (appropriate for gestational age) - No contractions, vaginal bleeding, or leakage of fluid reported 2. Follow-up care: - Plan: a) Schedule follow-up appointment in 4 weeks b) Schedule glucose tolerance test at the hospital c) Coordinate Rhogam administration with glucose tolerance test 3. Patient instructions: - Plan: a) Fast prior to glucose tolerance test Follow up in 2 weeks for a routine visit. documented in this encounterCox Walnut [id number] History of Present illness Narrative* Renita Young MD - 05/18/2024 4:00 PM EST Subjective Kerri Caceres is a 34 y.o. at 19w6d with a working estimated date of delivery of 10/06/2024, by Last Menstrual Period who presents for a routine visit. She denies vaginal bleeding, leakage of fluid, decreased movements, or contractions. Her is complicated by: BN Francesca AMA The patient reports experiencing nausea and vomiting, which has been decreasing as she starts to feel movement while eating. She also mentions feeling better overall, which is consistent with entering the second trimester of . The patient describes the movement sensation as similar to a butterfly tickling your face and likens it to going down a roller coaster with a feeling of excitement. The patient's review of systems indicates: - Gastrointestinal: Nausea and vomiting decreasing, feeling better - General: Feeling bumping while eating Objective Physical Exam Expected Total Weight Gain: 11 lb-19 lb Pregravid BMI: 35.60 Labs Urine dip: Lab Results Component Value Date KETONESU Negative 05/11/2024 PROTEINUR Negative 03/04/2024 GLUCOSEUR Negative 05/11/2024 LEUKOCYTESUR Negative 05/11/2024 Lab Results Component Value Date HGB 12.9 03/04/2024 HCT 39.1 03/04/2024 LABANTI Negative 03/04/2024 LABRPR Non Reactive 03/04/2024 HEPBSAG Negative 03/04/2024 RUBELLAIGGQT 3.49 03/04/2024 Assessment/Plan Diagnoses and all orders for this visit: 19 weeks gestation of - Urine dip Second trimester Intertrigo Continue vitamin. Labs reviewed. Follow up in 4 weeks for a routine visit. And US to complete anatomy scan 1. Routine care: - Recent imaging findings: - Normal measurements - Posterior placenta - Normal amniotic fluid - Some aspect of anatomy not fully visualized - Patient symptoms: - Experiencing nausea and vomiting (decreasing) - Starting to feel movement - Plan: a) Schedule follow-up appointment in 4 weeks for both parents b) Repeat ultrasound at next visit to visualize anatomy, particularly cardiac chambers c) Continue routine care d) Patient to report any cramping, vaginal bleeding, or leaking fluid documented in this encounterCox Walnut [id number] History of Present illness Narrative* Renita Young MD - 05/11/2024 12:45 PM EST Subjective Kerri Caceres is a 34 y.o. at 18w6d with a working estimated date of delivery of 10/06/2024, by Last Menstrual Period who presents for a routine visit. She denies vaginal bleeding, leakage of fluid, decreased movements, or contractions. Her is complicated by: BN Francesca AMA The patient presents with a rash in the groin area. She suspects it may be due to tight underwear or excessive heat. The patient reports she has stopped using scented wash in the genital area. The provider identifies the condition as intertrigo, a chronic but treatable condition caused by pwcu-hy-iezp friction and moisture in close body areas. The patient is currently , which limits treatment options. The patient reports being very active in terms of physical activity. Regarding diet, she reports eating frequently and mentions recent weight loss. A review of systems indicates she has lost a coupleof pounds and confirms the presence of a rash in the groin area. Objective Physical Exam weight: 241 lb Expected Total Weight Gain: 11 lb-19 lb Pregravid BMI: 35.60 BP: 130/80 Labs Urine dip: Lab Results Component Value Date KETONESU Negative 04/27/2024 PROTEINUR Negative 03/04/2024 GLUCOSEUR Negative 04/27/2024 LEUKOCYTESUR Negative 04/27/2024 Lab Results Component Value Date HGB 12.9 03/04/2024 HCT 39.1 03/04/2024 LABANTI Negative 03/04/2024 LABRPR Non Reactive 03/04/2024 HEPBSAG Negative 03/04/2024 RUBELLAIGGQT 3.49 03/04/2024 Intertrigo of bilateral intertrigo Assessment/Plan Diagnoses and all orders for this visit: 18 weeks gestation of - Urine dip Second trimester Continue vitamin. Labs reviewed. Follow up in 4 weeks for a routine visit. Pinkish rash that has developed on my inner thighs meeting my pelvic region. Patient stating that she noticed rash Friday and , its starting to go away but is still there, denies itching but states that it seems to be flaky like its drying out. Pt also stated that she did not use any ointments 1. Intertrigo: - Patient presents with a rash in the groin area - Diagnosis: Intertrigo, a chronic but treatable condition - Cause: Moisture, friction, vxfj-zo-ycpa contact, and excessive sweating - Condition exacerbated by - Plan: a) Prescribe nystatin powder for daily use to absorb moisture. b) Prescribe nystatin cream for application during active rash episodes. c) Advise patient to keep the affected area dry. d) Inform patient that Diflucan treatment will be considered post-delivery for expedited resolution. e) Schedule follow-up appointment in four weeks. Derm consult prn 2. : - Patient is currently - Recent ultrasound results were normal - Plan: a) Continue routine care. b) Schedule next appointment in four weeks. documented in this encounterCox Walnut [id number] History of Present illness Narrative* Renita Young MD - 04/27/2024 8:45 AM EST Subjective Kerri Caceres is a 34 y.o. at 16w6d with a working estimated date of delivery of 10/06/2024, by Last Menstrual Period who presents for a routine visit. She denies vaginal bleeding, leakage of fluid, decreased movements, or contractions. Granddad present Her is complicated by: 34 G1 Declines CFDNA Blood pressure is elevated. The patient reports that her nausea has improved and she is feeling better. She has not experiencedany bleeding, cramping, or other concerning symptoms during her thus far. The patient mentions that she has gained some weight during her second trimester, which she is content with. She has not yet scheduled her ultrasound but plans to do so for around 17 weeks. The patient has decided not to undergo the maternal 21 chromosomal test. She has not felt any movements yet but is aware that she may start feeling flutters over the next month. Objective Physical Exam Expected Total Weight Gain: 11 lb-19 lb Pregravid BMI: 35.60 Labs Urine dip: Lab Results Component Value Date KETONESU Negative 03/29/2024 PROTEINUR Negative 03/04/2024 GLUCOSEUR Negative 03/29/2024 LEUKOCYTESUR Negative 03/29/2024 Lab Results Component Value Date HGB 12.9 03/04/2024 HCT 39.1 03/04/2024 LABANTI Negative 03/04/2024 LABRPR Non Reactive 03/04/2024 HEPBSAG Negative 03/04/2024 RUBELLAIGGQT 3.49 03/04/2024 Assessment/Plan Diagnoses and all orders for this visit: 16 weeks gestation of - Urine dip Second trimester Continue vitamin. Labs reviewed. Follow up in 4 weeks for a routine visit. 1. - 16 weeks: - Plan: a) Schedule an ultrasound for 20 weeks gestation. b) Patient to call if any increased pressure, vaginal bleeding, leakage of fluid, or cramping occurs. c) Follow up in 3 weeks at the time of the ultrasound. 2. Nausea - Improved: - Plan: a) Continue to monitor. b) No intervention needed at this time. 3. Maternal 21 - Chromosomal test: - Plan: a) Document patient's decision to decline the test. b) No need to ask again at the next visit. 4. heart rate - 141 bpm: - Plan: a) Continue to monitor at subsequent visits. 5. Anticipated movement - Flutters: - Plan: a) Educate patient on expected flutters over the next month. b) Explain the difference between early flutters and later thumpy-pumpy movements. c) Encourage patient to report any concerns. 6. Patient education and support: - Plan: a) Encourage patient to reach out with any questions or concerns. b) Provide guidance and reassurance as needed throughout the . documented in this encounterCox Walnut [id number] History of Present illness Narrative* Renita Young MD - 03/29/2024 8:45 AM EST Subjective Kerri Caceres is a 34 y.o. at 12w5d with a working estimated date of delivery of 10/06/2024, by Last Menstrual Period who presents for a routine visit. She denies vaginal bleeding, leakage of fluid, decreased movements, or contractions. Her is complicated by: 34 G1 The patient reports experiencing vomiting a couple of times during . She denies taking anymedication for nausea or vomiting. The patient mentions having an anti-neutral inhaler from a year ago. It is noted that the patient is Rh negative. Her blood pressure is recorded as 128/80. In the review of systems, gastrointestinal issues are noted, specifically vomiting a couple of times, with nausea implied. Objective Physical Exam Expected Total Weight Gain: 15-26 Pregravid BMI: 35.6 Labs Urine dip: Lab Results Component Value Date KETONESU Negative 03/04/2024 PROTEINUR Negative 03/04/2024 GLUCOSEUR Negative 03/04/2024 Lab Results Component Value Date HGB 12.9 03/04/2024 HCT 39.1 03/04/2024 LABANTI Negative 03/04/2024 LABRPR Non Reactive 03/04/2024 HEPBSAG Negative 03/04/2024 RUBELLAIGGQT 3.49 03/04/2024 vulvitis Assessment/Plan Diagnoses and all orders for this visit: 12 weeks gestation of Encounter for supervision of normal first in first trimester Encounter for gynecological examination without abnormal finding Encounter for screening for cervical cancer Screen for STD (sexually transmitted disease) vulvitis Continue vitamin. Follow up in 2 weeks for a routine visit. B- Immune Neg drug screen No pap on file 1. Early : - Patient reports occasional vomiting, no other significant issues. - Plan: a) Recommend jayh-yjl-fvqbmur Unisom, Vit B6, or maria eugenia candy for nausea relief. b) Monitor symptoms and follow up in subsequent visits. 2. Genetic testing: - Patient has completed genetic testing, awaiting results. - Plan: a) Review results when available and discuss with the patient. b) Schedule an ultrasound if needed. 3. Possible yeast infection: - Patient reports using an anti-neutral inhaler a year ago. - Plan: a) Monitor for any signs of itching or discomfort. b) If symptoms arise, evaluate for yeast infection and treat accordingly. 4. Gestational diabetes risk: - Patient has irritation and possible yeast infection, which may be signs of gestational diabetes. - Plan: a) Schedule an early glucose test to assess for gestational diabetes. b) Follow up with appropriate management if needed. 5. Rh-negative status: - Patient is Rh-negative and understands the need for RhoGAM. - Plan: a) Administer RhoGAM at 28 weeks and at delivery, or earlier if any bleeding occurs. b) Monitor patient's Rh status throughout . 6. Vaccinations: - Patient needs Tdap and v vaccines during . - Plan: a) Administer Tdap after 28 weeks. b) Administer RSV after 32 weeks. c) Ensure partner receives Tdap as well. 7. Blood pressure: - Patient's blood pressure is normal at 128/80. - Plan: a) Continue to monitor blood pressure throughout . b) Advise patient to be cautious with blood pressure medications. 8. care and education: - Patient has been provided with information on medications, dietary restrictions, and care. - Plan: a) Continue regular visits, with appointments every 4 weeks for the first 28 weeks, every 2 weeks from 28 to 36 weeks, and weekly thereafter. b) Schedule an ultrasound in 8 weeks. c) Encourage patient to communicate any concerns or questions through MyChart or by phone. 9. Due date: - Patient's estimated due date is in . - Plan: a) Monitor progress and adjust due date if necessary based on ultrasound findings. 10. Follow-up: - Plan: a) Schedule follow-up appointments as needed. b) Encourage patient to contact the clinic with any questions or concerns. documented in this encounterCox Walnut [id number] History of Present illness Narrative* Asmita Marti RN - 03/04/2024 2:45 PM EST Name: Kerri Caceres Date/Time of Service:03/04/2024 3:05 PM :1990 Age: 34 y.o. Chief Complaint Chief Complaint Patient presents with Initial Visit Kerri Caceres is a 34 y.o. at 9w1d with a working estimated date of delivery of 10/06/2024, by Last Menstrual Period who presents for an initial visit. OB History Para Term AB Living 1 SAB IAB Ectopic Multiple Live Births # Outcome Date GA Lbr Rick/2nd Weight Sex Type Anes PTL Lv 1 Current Past Medical / Surgical History History reviewed. No pertinent past medical history. Past Surgical History: Procedure Laterality Date CHOLECYSTECTOMY Family History Family History Problem Relation Name Age of Onset Lung cancer Mother Diabetes Mother Hypertension (CMS/HCC) Father Diabetes Father COPD Maternal Grandmother Cancer Maternal Grandfather Cancer Paternal Grandmother Other (thyroid issues) Paternal Grandmother Heart disease Paternal Grandfather Social History reports that she has never smoked. She has never used smokeless tobacco. She reports that she does not currently use alcohol. She reports that she does not use drugs. Social History Tobacco Use Smoking Status Never Smokeless Tobacco Never MEDICATIONS: Current Outpatient Medications on File Prior to Visit Medication Sig Dispense Refill albuterol HFA 90 mcg/act inhaler INHALE 2 PUFFS BY MOUTH 4 TIMES A DAY NEEDED MV & Min w/FA-DHA ( GUMMIES PO) Take by mouth No current facility-administered medications on file prior to visit. Allergies No Known Allergies Patient reports nausea and no vomiting. Discussed smaller meals, maria eugenia products, OTC Vitamin B6 50mg BID and Unisom 25mg BID Patient reports taking daily vitamins. Genetic and Chromosomal testing discussed. Last PAP: Patient reports in 2016 WNL ASSESSMENT / PLAN Labs Ordered. Patient handed printed copy of orders to take with her to [facility] to have drawn today. Appointments scheduled for OBUS 03/25 and with PPJ 03/2903/04/2024 3:05 PM documented in this encounterCox Walnut [id number] Evaluation note* Encounter Date Diagnosis Assessment Notes Treatment Notes Treatment Clinical Notes May, Impacted cerumen of left ear (IC D-10 - H61.22) Continue with the uyno-mbc-czlxhxx Flonase nasal spray as directed. Try warm compresses to the ears. Follow-up with your primary care provider if symptoms persist or worsen. You may use emkb-bug-pryxgyt Debroas needed for wax buildup. Patient is a 33-year-old female who presents to urgent care with complaints of fullness in the bilateral ears. Patient states that she has had impacted cerumen in the ears before. Patient states thatshe recently had nasal congestion and a cold. She still has some congestion in the nasal cavities using Flonase daily. Exam of the ears the right is normal and the left had impacted cerumen. The patient left ear was flushed with warm water and the wax was removed. The left ear canal is normal and the tympanic membrane is normal pearly white without any bulging noted. Patient encouraged to take any nvmy-wxd-ovvlwvl Tylenol or Motrin as needed for discomfort. She can try warm compresses as neededcontinue the Flonase as prescribed. Follow-up with her primary care provider if symptoms persist. [facility] Other 12-10-2023 Evaluation note* Encounter Date Diagnosis Assessment Notes Treatment Notes Treatment Clinical Notes Mar, Bronchitis (ICD-10 - J40) Drink plenty fluids, get plenty of rest. Take the doxycycline and prednisone as prescribed until gone. Use the albuterol inhaler as prescribed as needed for cough or shortness of breath. Continue take your Delsym as needed for cough. Take Tylenol or Motrin as needed for aches pains or fevers. Follow-up with your family physician if no improvement in 2 to 3 days [facility] Other 08-01-2011 History general Narrative - Reported* Type Description Date Medical History HS Surgical Cbuicrmjcdabzpywnpoagf58/2011Hospitalization Historysee above Hospitalization HistoryHS [id number] [facility] Other Evaluation note* Diagnosis Onset Date Resolution Status Admit Date Amenorrhea acuteNovember 2023 2:23pm [facility] Work Phone: Evaluation note* Diagnosis Encounter for supervision of normal first in first trimester Encounter for drug screening [facility] Diagnosis 12 weeks gestation of Encounter for supervision of normal first in first trimester Encounter for gynecological examination without abnormal finding Encounter for screening for cervical cancer Screen for STD (sexually transmitted disease) Screening examination for venereal disease Vaginal discharge Leukorrhea, not specified as infective [facility]* Diagnosis 16 weeks gestation of Second trimester state, incidental care, subsequent in first trimester Screening for genetic disease carrier status [facility]* Diagnosis Intertrigo- Primary Other specified erythematous condition 18 weeks gestation of Second trimester state, incidental [facility]* Diagnosis 19 weeks gestation of Second trimester state, incidental Intertrigo Other specified erythematous condition [facility]* Diagnosis 23 weeks gestation of Second trimester state, incidental Intertrigo Other specified erythematous condition Screening for diabetes mellitus (DM) Screening for diabetes mellitus Blood typing encounter Encounter for blood typing Rh negative status during in second trimester Encounter for blood typing [facility]* Diagnosis Anemia, unspecified type- Primary Second trimester state, incidental 27 weeks gestation of Intertrigo Other specified erythematous condition Rh negative status during in second trimester [facility]* Diagnosis Third trimester state, incidental 30 weeks gestation of Intertrigo Other specified erythematous condition Rh negative status during in second trimester Anemia, unspecified type [facility]* Diagnosis Third trimester state, incidental 32 weeks gestation of Intertrigo Other specified erythematous condition Rh negative status during in second trimester Anemia, unspecified type [facility]* Diagnosis screening for streptococcus B screening for Streptococcus B Third trimester state, incidental 34 weeks gestation of Intertrigo Other specified erythematous condition Rh negative status during in second trimester Anemia, unspecified type [facility]* Diagnosis Third trimester state, incidental 36 weeks gestation of Intertrigo Other specified erythematous condition Rh negative status during in second trimester Anemia, unspecified type [facility]* Diagnosis 37 weeks gestation of Vaginal bleeding during [facility]* Diagnosis Third trimester (HHS-HCC) state, incidental 37 weeks gestation of (HHS-HCC) Vaginal bleeding during (HHS-HCC) Intertrigo Other specified erythematous condition Rh negative status during in second trimester (HHS-HCC) Anemia, unspecified type [facility]* Diagnosis 36 weeks gestation of Vaginal bleeding during [facility]* Diagnosis 39 weeks gestation of (HHS-HCC) Vaginal bleeding during (HHS-HCC) documented [facility] encounter [facility]* Diagnosis Third trimester (HHS-HCC) state, incidental Vaginal bleeding during (HHS-HCC) Intertrigo Other specified erythematous condition Rh negative status during in second trimester (HHS-HCC) Anemia, unspecified type 39 weeks gestation of (HHS-HCC) documented [facility]* Diagnosis Acute postoperative pain- Primary Other acute postoperative pain care following delivery (HHS-HCC) Acute postoperative pain Other acute postoperative pain documented in this encounter [facility]* Diagnosis care following delivery (HHS-HCC) Acute postoperative pain Other acute postoperative pain documented in this encounter [facility]* Diagnosis General counseling and advice on contraceptive management- Primary Other general counseling and advice for contraceptive management care following delivery (HHS-HCC) Acute postoperative pain Other acute postoperative pain documented in this encounter [facility] HealthcareEvaluation note* Diagnosis Acute postoperative pain Other acute postoperative pain Incisional pain documented in this encounter [facility] HealthcareEvaluation note* Diagnosis Encounter for contraceptive management, unspecified type- Primary documented in this encounter [facility] HealthcareReason for referral (narrative)No reason for referral information availableL[facility] Work Phone: Reason for visit Narrative* Maternity Services (Routine) - ClosedSpecialtyDiagnoses / ProceduresReferred By ContactReferred To ContactObstetrics and Gynecology Diagnoses Encounter for supervision of normal first , first trimester Procedures Please check global maternity benefits. CHRISTIAN 10/06/24 Renita Young MD [address] [address] Phone: tel: fax: Renita Young MD [address] [facility] [address] [place] [address] Phone: tel: fax: Referral IDStatusReasonStart DateExpiration DateVisits RequestedVisits [id number] Other / [facility] Healthcare Summary Purpose Family History Relationship Condition Age at Onset Recorded Date/T joyce brother Diabetes mellitus Unknown fatherHypertensionUnknownDiabetes mellitusUnknownmotherFamily history of other conditionUnknownMalignant neoplasmUnknownDeceasedUnknownsisterHypertension UnknownPrediabetesUnknown Advance Directives Advance Directive Response Recorded Date/ Time Advance Directives No February 2:21pm Advance Directive Response Recorded Date/ Time Advance Directives No February 3:21pm Chief Complaint and Reason for Visit Chief Complaint Admit Date eat care, wellness February 24, 2024 2:23pm Reason for Visit Admit Date Amenorrhea February 24, 2024 2:23pm Chief Complaint Admit Date z13.1 o26.892 z67.91 z01.83 July 09, 2024 7:54am Z36.85 August 31, 2024 1:42p m IUP (Intrauterine ) September 29, 2024 11:18am IUP (Intrauterine ) September 30, 2024 8:01am z39.1 October 06, 2024 10:2 3am Reason for Visit Admit Date 39 weeks gestation of September 8:01am examination following cesarea n delivery September 30, 2024 8:01am Chief Complaint Admit Date Z36.85 August 31, 2024 1:42p m IUP (Intrauterine ) September 29, 2024 11:18am IUP (Intrauterine ) September 30, 2024 8:01am z39.1 October 06, 2024 10:2 3am 092.4 October 14, 2024 1:33p m Additional Source Comments INFORMATION SOURCE (unrecogn ized section and content) DATE CREATED AUTHOR 05/24/2020 [facility] DATE CREATED AUTHOR AUTHOR'S ORGANIZ ATION 11/09/2024 [facility] DATE CREATED AUTHOR AUTHOR'S ORGANIZ ATION 12/17/2024 [facility] EPIC REASON FOR VISIT (unrecogniz ed section and content) ReasonCommentsInitial VisitReasonCommentsRoutine VisitPatient present for PNC. Patient denies any issues with nausea, vomiting. Patient states babys movement is present. Protein:Glucose:ReasonCommentsRoutine Visit Patient present for PNC. Patient denies any issues or complaints Protein: Neg Glucose: NegReasonCommentsRoutine VisitPatient present for PNC, patient states Protein: NegGlucose: NegReasonCommentsRoutine VisitPatient present for PNC, patient denies any issues or complaints at this time. P: NegG: NegReasonCommentsRoutine VisitPatient present for PNC, patient denies any issues or complaints at this time. P: Neg G: NegReasonCommentsRoutine VisitPatient present for PNC, patient denies any issues or complaints at this time. P: G:ReasonCommentsNon-stress TestReasonCommentsRoutine VisitPatient present PNC, patient states no issues or complaints at this time. P; Neg G: NegReasonCommentsRoutine VisitPatient present for PNC, patientReasonCommentsPostpartum CareReasonCommentsPostpartum CarePatient present for PP care. Patient states she's feeling great and bleeding is getting hobber.ReasonCommentsPostpartum CarePatient present for PP care, patient denies any issues or complaints at this time.ReasonCommentsFollow-up Care Teams (unrecognized sec tion and content) Team Status: Active Member Role Status Dates PHYSICIAN NO FAMILY Primary Care Provider Active Team Status: Inactive Member Role Status Dates PHYSICIAN NO FAMILY Primary Care Provider Active Start: February 24, 2024 End: February 24, 2024Amy Kingsley APRN CLERK RATING-CAttending ProviderActive Start: February 24, 2024 End: February 24, 2024Team MemberRelationshipSpecialtyStart DateEnd Date Amy Kingsley NP [address] [place] [address] PCP - GeneralFamily Pbanwqor34/21/24Team MemberRelationshipSpecialtyStart [place] [address] [place] [address] PCP - GeneralFamily Prsikzea26/21/24Team MemberRelationshipSpecialtyStart Date End Date Amy Kingsley NP [address] [place] [address] PCP - GeneralFamily Apqduyyb98/21/24Team MemberRelationshipSpecialtyStart Date End Date Amy Kingsley NP [address] [place] [address] [address] [place] [address] PCP - GeneralFamily Nrvfwqtx61/21/24Team MemberRelationshipSpecialtyStart Date End Date Amy Kingsley NP [address] [place] [address] [place] [address] PCP - GeneralFamily Jttcaqed81/21/24Team MemberRelationshipSpecialtyStart Date End Date Amy Kingsley NP [address] [place] [facility] [address] PCP - GeneralFamily Vseahajw30/21/24Team MemberRelationshipSpecialtyStart Date End Date Amy Kingsley NP [address] [place] [address] PCP - GeneralFamily Nwoqmxoy06/21/24Team MemberRelationshipSpecialtyStart Date End Date Amy Kingsley NP [address] [place] [address] PCP - GeneralFamily Grtepjfb90/21/24Team MemberRelationshipSpecialtyStart Date End Date Amy Kingsley NP [address] [place] [address] [place] [address] PCP - GeneralFamily Cvjzjaow53/21/24Team MemberRelationshipSpecialtyStart Date End Date Amy Kingsley NP [address] [place] [address] [place] [address] PCP - GeneralFamily Afldkyqo31/21/24Team MemberRelationshipSpecialtyStart Date End Date Amy Kingsley NP [address] [place] [facility] [place] [address] PCP - [facility] Wtvyqyue87/21/24Team MemberRelationshipSpecialtyStart Date End Date Amy Kingsley NP [address] [facility] [place] [address] PCP - [facility] Kivoqlfl66/21/24Team MemberRelationshipSpecialtyStart Date End Date Amy Kingsley NP [address] [facility] [place] [address] PCP - [facility]03/04/24Team MemberRelationshipSpecialtyStart Date End Date Amy Kingsley NP [address] [place] [place] [address] PCP - [facility]03/04/24Team MemberRelationshipSpecialtyStart Date End Date Amy Kingsley NP [address] [place] [address] PCP - [facility]03/04/24 Team Status: Active Member Role Status Dates Amy Kingsley APRN CLERK RATING-C Primary Care Provider Active Team Status: Active Member Role Status Dates Amy Kingsley APRN CLERK RATING-C Primary Care Provider Active Start: July 09, 2024 Renita Young MDAttending ProviderActiveStart: July 09, 2024 DAJA Peopleseferring ProviderActiveStart: July 09, 2024 Team Status: Inactive Member Role Status Dates Renita Young MD Attending Provider Active St art: August 31, 2024 End: August 31, 2024 Team Status: Inactive Member Role Status Dates NON STAFF Primary Care Provider Active Start: September 29, 2024 End: September 29, 2024Ankur Peoples ProviderActiveStart: September 29, 2024 End: September 29, 2024 Team Status: Inactive Member Role Status Dates Amy Kingsley APRN CLERK RATING-C Primary Care Provider Active Start: September 30, 2024 End: October 04, 2024Renita Young MDAdmit ProviderActiveStart: September 30, 2024 End: October 04, 2024Renita Young MDAttending ProviderActiveStart: September 30, 2024 End: October 04, 2024Natalibryson Buhannahgina , MDReferring ProviderActiveStart: September 30, 2024 End: October 04, 2024 Team Status: Inactive Member Role Status Dates Amy Kingsley APRN CLERK RATING-C Primary Care Provider Active Start: October 06, 2024 End: October 06anthony Rowell MDAttending ProviderActiveStart: October 06, 2024 End: October 06, 2024 Team Status: Inactive Member Role Status Dates Amy Kingsley APRN CLERK RATING-C Primary Care Provider Active Start: October 14, 2024 End: October 14katlyn Pathak MDAttending ProviderActiveStart: October 14, 2024 End: October 14, 2024 Goals (unrecognized section and content) Goals may be documented in a n alternate section FOR RECORDS PERTAINING TO PATIENTS WHO ARE OR HAVE BEEN ENROLLED IN A CHEMICAL DEPENDENCY/SUBSTANCEABUSE PROGRAM, SOME INFORMATION MAY BE OMITTED. This clinical summary was aggregated from multiple sources. Caution should be exercised in using it in the provision of clinical care. This summary normalizes information from multiple sources, and as a consequence, information in this document may materially change the coding, format and clinical context of patient data. In addition, data may be omitted in some cases. CLINICAL DECISIONS SHOULD BE BASED ON THE PRIMARY CLINICAL RECORDS. [facility] [employer] [facility]. provides no warranty or guarantee of the accuracy or completeness of information in this document.
--- NOTE | 2025-03-15 14:58 | XR_ITS ---
The [place] [id number] Patient Name: BLAKE COBB MRN: [id number] date: 1990 Sex: F Assigned Patient Location: [facility] Current Patient Location: [facility] Accession/Order Number: [id number] Exam Date: 03/15/2025 14:50 Report Date: 03/15/2025 15:35 At the request of: SHAUN THOMAS Procedure: XR chest 2V PA AND LATERAL CHEST: CLINICAL HISTORY: Shortness Of Breath COMPARISON: None FINDINGS: Unremarkable cardiomediastinal. Increased perihilar markings may raise possibility for interstitial edema or interstitial/atypical pneumonia. No effusion or pneumothorax. XR/XR chest 2V IMPRESSION: Increased interstitial markings may raise possibility for interstitial pulmonary edema versus interstitial/atypical pneumonia. Impression dictated by: Herman De La Torre M.D. 03/15/2025 3:35 PM Dictation Location: [place] [address] Electronically authenticated by: [id number] Y Date: 03/15/2025 15:35
== END 2025-03-15 14:40 | disposition home or self-care (01) ==
PROVIDERS: PCP Nurse Practitioner Family; Visit Provider Nurse Practitioner Family
DX: R06.02 Shortness of breath (principal)
CPT/HCPCS: 71046

== ENCOUNTER 2025-04-09 08:04 | Outpatient (OUT) | payer BC, SELFPAY ==
--- OUTSIDE RECORDS SUMMARY | 2025-04-09 08:08 | XMS_ITS | Clinical Summary ---
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 Care Provider Allergies No known active allergies Medications MedicationSigDispense QuantityRefillsLast FilledStart DateEnd DateStatus albuterol HFA 90 mcg/act inhaler INHALE 2 PUFFS BY MOUTH 4 TIMES A DAY SKPFLF2003/23/2023ctive MV & Min w/FA-DHA ( GUMMIES PO) Take by mouthActive triamcinolone (Kenalog) 0.1 % cream Indications:Vaginal dischargeApply topically 2 (two) times a day 30 g ctive nystatin (Mycostatin) 279812 UNIT/GM powder Indications:IntertrigoApply topically 3 (three) times [...] 1 tablet by mouth Daily 28 tablet 121/024944ctive Encounters DateTypeDepartmentCare FzyvNmlpcbxtgit94/15/2025Telephone [facility] [address] [place] [phone] Renita Funk MD from Last 3 Months Family History Medical HistoryRelationNameCommentsDiabetesFatherGeorgeHypertension (CMS/HCC) FatherGeorgeCancerMaternal GrandfatherMarvinCOPDMaternal GrandmotherAsthmaMother RobinCancerMotherRobinDiabetesMotherRobinLung cancerMotherRobinHeart disease Paternal GrandfatherCancerPaternal GrandmotherInathyroid issuesPaternal GrandmotherInaRelationNameStatusCommentsFatherGeorgeMaternal GrandfatherMarvin Maternal GrandmotherMotherRobinPaternal GrandfatherPaternal GrandmotherIna Social History Tobacco UseTypesPacks/DayYears UsedDateSmoking Tobacco: NeverSmokeless Tobacco: Never Tobacco Cessation:Counseling Given: Not Answered Alcohol UseStandard Drinks/WeekCommentsNot Currently0 (1 standard drink = 0.6 oz pure alcohol)Caffeine intake: 1 soda dailyEdinburgh Depression Scale AnswerDate RecordedEdinburgh Depression Scale Geejc808The thought of harming myself has occurred to me.Never11/10/2024CommentsNo Sex and Gender InformationValueDate RecordedSex Assigned at BirthNot on file Legal FheKaknaa80/14/2024 8:08 AM ESTGender IdentityNot on fileSexual OrientationNot on fileOccupationIndustryJob Start DateJob End DateNot on fileNot on fileNot on fileNot on file Last Filed Vital Signs Vital SignReadingTime TakenCommentsBlood Lctnbaqa277/7209 10:56 AM EDT Pulse--Temperature--Respiratory Rate--Oxygen Saturation--Inhaled Oxygen Concentration--Rabchy267 kg (230 lb)12/15/2024 10:56 AM OUDCiyfjd268.7 cm (5' 8 )12/15/2024 10:56 AM EDTBody Mass Index34.9712/15/2024 10:56 AM EDT Plan of Treatment DateTypeDepartmentCare Team (Latest Contact Info)Pyuygysulro19/14/2026 1:30 PM ESTOffice Visit [facility] [address] [place] [phone] Renita Funk MD [address] [place] [address] Health MaintenanceDue DateLast DoneCommentsPap Smear2011Cervical Cancer Vjzbxjkas07/26/2020HPV/Ybkmgx7602/07/2020Influenza BqqqpluSlbaekdkm89/24/2025, 02/04/2024, 01/13/2023, Additional history existsPneumococcal Vaccine: Pediatrics (0 to 5 Years) and At-Risk Patients (6 to 64 Years)Aged OutNo longer eligible based on patient's age to complete this topic Insurance Care Teams Team MemberRelationshipSpecialtyStart DateEnd Date Amy Kingsley NP [address] [place] [address] PCP - GeneralFamily Fglnvbln95/21/24
--- OUTSIDE RECORDS SUMMARY | 2025-04-09 08:08 | XMS_ITS | CCD ---
Author Organization [facility] Care Team Providers Care Coil Winder Repair Name Role Phone REQUEST, NONE LISTED Admitting Unavailable CHEYENNE PABLO Consulting Unavailable REQUEST, NONE LISTED Attending Unavailable REQUEST, NONE LISTED Attending Unavailable REQUEST, NONE LISTED Consulting Unavailable REQUEST, NONE LISTED Admitting Unavailable Mell Krysta Unavailable Diogenes Payton Unavailable Sancho SHANNON, Amy Lorenzana Primary Care Provider Amy Kingsley APRN Primary Care Provider Renita Young MD Attending Provider Renita Young MD Referring Provider [phone] NON STAFF Primary Care Provider Unavailjak e Renita Young MD Admit Provider Hannah Jimenez MD Referring Provider [phone] Mani Rowell MD Attending Provider Renita Young MD Attending Provider Amy Kingsley APRN Primary Care Provider Kassandra Pathak MD Attending Provider Amy Kingsley Primary Care Unavailable Mani Rowell Admitting Unavailable Mani Rowell Attending Unavailable Kassandra Pathak Admitting Unavailable Kassandra Ptahak Attending Unavailable Amy Kingsley Primary Care Unavailable Amy Kingsley Primary Care Unavailable Reniat Young Admitting Unavailable Renita Young Attending Unavailable [...] Unavailable Medications Current Medications MedicationDrug Class(es)DatesSig (Normalized)Sig (Original)[id number] 200 actuat albuterol 0.09 mg/actuat metered dose inhaler (20 sources)beta2-Adrenergic AgonistStart: 47-02-2333rlvh 2 puff(s) by mouth four times daily as neededalbuterol HFA 90 mcg/act inhaler INHALE 2 PUFFS BY MOUTH 4 TIMES A DAY NEEDED 03/23/2023 ActiveStart: 45-39-9249sklu 2 puff(s) by inhalation four times daily as neededAlbuterol Sulfate HFA 108 (90 Base) MCG/ACT 2 puffs Inhalation 4 times a day prn Mar, Activecephalexin 500 mg oral capsule (4 sources)Cephalosporin AntibacterialStart: 10-13-2024 End: 73-16-4384kaslztggdq (Keflex) 500 MG capsule Indications: Acute postoperative pain Take 1 capsule (500 mg) bymouth in the morning and 1 capsule (500 mg) at noon and 1 capsule (500 mg) in the evening and 1 capsule (500 mg) before bedtime. Do all this for 10 days. 40 capsule 10/13/2024 10/23/2024 Active 12 hr dextromethorphan polistirex 6 mg/ml extended release suspension (1 source)Uncompetitive O-bfdjqv-H-aspartate Receptor Antagonist, Sigma-1 Agonisttake 10 mL by mouth every twelve hours as neededDelsym 30 MG/5ML 10 mL as needed Orally every 12 hrs Activedoxycycline hyclate 100 mg oral tablet (1 source)Tetracycline-class DrugStart: 36-92-3590panj 1 tablet by mouth every twelve hoursDoxycycline Hyclate 100 MG 1 tablet Orally Twice a day for 10 day(s) Mar, Activeethinyl estradiol 0.035 mg / norgestimate 0.25 mg oral tablet (1 source)Progestin, EstrogenStart: 01-26-2025 End: 78-92-1795vbon 1 tablet by mouth once dailynorgestimate-ethinyl estradiol (Sprintec 28) 0.25-35 MG-MCG tablet Indications: Encounter for contraceptive management, unspecified type Take 1 tablet by mouth Daily 28 tablet 12 01/26/2025 01/26/2026 Activeferrous sulfate 325 mg oral tablet (20 sources)Start: 14-02-2675futx 1 tablet by mouth once dailyStart: 07-13-2024 ferrous sulfate (Fe Tabs) 325 (65 Fe) MG EC tablet Indications: Anemia, unspecified type Do not crush, chew, or split. 30 tablet 11 07/13/2024 Active ibuprofen 800 mg oral tablet (2 sources)Nonsteroidal Anti-inflammatory DrugStart: 89-38-0235xektefmeuyhmw 0.35 mg oral tablet (5 sources)Start: 11-10-2024 End: 15-30-3766nfkq 1 tablet by mouth once dailynorethindrone (Micronor) 0.35 MG tablet Indications: General counseling and advice on contraceptivemanagement Take 1 tablet (0.35 mg) by mouth Daily 28 tablet 11 11/10/2024 01/26/2025 Discontinuednystatin 100 unt/mg topical powder (20 sources)Polyene AntifungalStart: 05-11-2024 End: 81-63-0113mpfmvzxy (Mycostatin) cream Indications: Intertrigo Apply topically 2 (two) times a day 30 g 2 05/11/2024 05/11/2025 ActiveStart: 05-11-2024 End: 94-97-8686gijxpuih (Mycostatin) 255780 UNIT/GM powder Indications: Intertrigo Apply topically 3 (three) timesa day 15 g 05/11/2024 05/11/2025 ActivepredniSONE 20 mg oral tablet (1 source)Start: 39-67-0858nngw 2 tablets by mouth once daily at mealtime predniSONE 20 MG 2 tablets with food or milk Orally Once a day for 5 days Mar, ActivePrenatal Jchrplud-Vos-Jm-Fa 1 mg tablet (2 sources)Start: 59-96-0125kins 1 tablet by mouth oncePrenatal MV & Min w/FA- DHA ( GUMMIES PO) (20 sources) MV & Min w/FA-DHA ( GUMMIES PO) Take by mouth Activetriamcinolone acetonide 1 mg/ml topical cream (20 sources)CorticosteroidStart: 92-06-1722ezjvyipgthhec (Kenalog) 0.1 % cream Indications: Vaginal discharge Apply topically 2 (two) times a day 30 g 2 03/29/2024 Active Completed/Discontinued Medications MedicationDrug Class(es)DatesSig (Normalized)Sig (Original)rho(d) immune globulin, human 1500 unt prefilled syringe (2 sources)Human Immunoglobulin GStart: 06-15-2024 End: 63-67-0040krd,D, immune globulin (RhoGAM Ultra-Filtered Plus) 1500 units injection Indications: Blood typing encounter , Rh negative status during in second trimester Inject 1 mL (1,500 Units) into the shoulder, thigh, or buttocks 1 (one) time for 1 dose 300mcg as directed per rhogam workup 1 mL 06/15/2024 06/15/2024 Problems Problem ClassificationProblemDateDocumented DateEpisodic/Chronic Administrative/social admission (14 sources)Patient encounter status; Translations: [Encounter for blood-alcohol and blood-drug test]31-19-9618WnkwixwkEarzpwl obstructive pulmonary disease and bronchiectasis (1 source)Bronchitis, not specified as acute or chronicEpisodicComplications of surgical procedures or medical care (2 sources)Wound pain ; Translations: [Other postprocedural complications of skin and subcutaneous tissue]99-68-5290YxsyretnNjvrseyprl and other anemia (16 sources)Anemia; Translations: [Anemia, unspecified]85-61-9414Lhpuvxvp Hemorrhage during ; abruptio placenta; placenta previa (7 sources)Bleeding from female genital tract during ; Translations: [Antepartum hemorrhage, unspecified, unspecified trimester]76-96-5501Nijcmcqw Menstrual disorders (4 sources)Amenorrhea; Translations: [Amenorrhea, unspecified]12-86-3442Zqcdvbr Other complications of ; puerperium affecting management of mother (1 source)Hypogalactia; 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]Onset: 20-33-0535Gvnbniaj Other complications of (18 sources)RhD negative; Translations: [Other specified related conditions, second trimester]67-76-3920CdnywzbsEdlfx complications of (1 source)Other abnormal findings on screening of mother; Translations: [Other abnormal findings onantenatal screening of mother]Onset: 28-52-3362CpkmzfhbTzcuh ear and sense organ disorders (1 source)Impacted cerumen, left earEpisodicOther female genital disorders (2 sources)Vaginal discharge; Translations: [Other specified noninflammatory disorders of vagina]41-30-1523CvxvclibDlzvk inflammatory condition of skin (20 sources)Intertrigo; Translations: [Erythema intertrigo]04-17-8216Mrakchkz Other nervous system disorders (8 sources)Acute postoperative pain; Translations: [Other acute postprocedural pain]23-67-3545XjtlpmswQlavg and delivery including normal (20 sources)Normal ; Translations: [Encounter for supervision of normal first , first trimester]Onset: 286719-92-1289OdehkwnxVmenk screening for suspected conditions (not mental disorders or infectious disease) (1 source)Encounter for screening for Streptococcus B; Translations: [Encounter for screening for Streptococcus B]Onset: 35-51-9729Yqcwgpsj Residual codes; unclassified (2 sources)Gestation period, 12 weeks; Translations: [12 weeks gestation of ]65-74-6673TuniaeylYohmkbph codes; unclassified (2 sources)Gestation period, 16 weeks; Translations: [16 weeks gestation of ]89-09-3961UdlywxlfYfuietfn codes; unclassified (2 sources)Gestation period, 18 weeks; Translations: [18 weeks gestation of ]75-14-7742DfyfgwefOaxfmoej codes; unclassified (2 sources)Gestation period, 19 weeks; Translations: [19 weeks gestation of ]70-49-2271AdrsippqIiyppuqe codes; unclassified (2 sources)Gestation period, 23 weeks; Translations: [23 weeks gestation of ]63-73-0905EiqnsblkLcqrdfbe codes; unclassified (2 sources)Gestation period, 27 weeks; Translations: [27 weeks gestation of ]34-67-8517FdoxsiikEtorqcxs codes; unclassified (2 sources)Gestation period, 30 weeks; Translations: [30 weeks gestation of ]60-81-5001ZlskzvinCfvqkhzl codes; unclassified (2 sources)Gestation period, 32 weeks; Translations: [32 weeks gestation of ]94-07-8382NefcgofaRnajjbur codes; unclassified (2 sources)Gestation period, 34 weeks; Translations: [34 weeks gestation of ]68-90-7383BgurhqrmJqwljgyl codes; unclassified (5 sources)Gestation period, 36 weeks; Translations: [36 weeks gestation of ]61-85-0137CwbhvimsMzomndsj codes; unclassified (3 sources)Gestation period, 37 weeks; Translations: [37 weeks gestation of ]63-45-5017IyhukujhSawpwgpk codes; unclassified (7 sources)Gestation period, 39 weeks; Translations: [39 weeks gestation of ]20-48-4035LdhirqjrXfogkhve codes; unclassified (2 sources)Gestation period, 7 weeks; Translations: [Less than 8 weeks gestation of ]81-75-6521NwkrkegjEqbrtyyx codes; unclassified (1 source)39 weeks gestation of ; Translations: [39 weeks gestation of ]Onset: 04-90-4564Zrvyukzk Results Test NameValueInterpretationReference RangeFacilityBasophils [#/volume] in Blood by Automated countOrdered By: HUI Young on 73-44-7257Fugfltjaw (Bld) [#/Vol]0.1 10*3/uLNormal0.0-0.2FPeoples HospitalComment on above:Result Comment: PERFORMED BY: [facility] [address] [place] [address] PATHOLOGIST BUSINESS DATA ANALYST ELINA DURBIN M.D.Performed By: #### CBC #### [facility] [address] [phone] USABasophils/100 leukocytes in Blood by Automated count Ordered By: HUI Young on 41-01-5711Znkxzaylw/100 WBC (Bld)0.6 %Normal .[facility] Medical CenterComment on above:Performed By: #### CBC #### [facility] [address] [phone] USACBC W Auto Differential panel (Bld)on 13-33-6351Afphsvzck (Bld) [#/Vol]0.1 10*3/uL0.0 - 0.2 10*3/uLNOMS HealthcareBasophils/100 WBC Manual cnt (Syn fld)0.6 %.[facility] CenterEosinophils (Bld) [#/Vol]0 10*3/uL0.0 - 0.45 10*3/uLNOMS HealthcareEosinophils/100 WBC Manual cnt (Syn fld)0 %.[facility] CenterErythrocyte distribution width (RBC) [Ratio]14.7 %11.9 - 15.3 %[facility] CenterHematocrit (Bld) [Volume fraction]35.8 %34.0 - 46.4 %[facility] Hemoglobin (Bld) [Mass/Vol]12.1 g/dL11.8 - 15.4 g/dLMoberly Regional Medical Center Interpretation and review of laboratory resultsAbnormalMoberly Regional Medical Center Lymphocytes (Bld) [#/Vol]1.1 10*3/uL1.00 - 4.8 10*3/uLNOMercy hospital springfield Lymphocytes/100 WBC Manual cnt (Syn fld)6.3 %.[facility] CenterH (RBC) [Entitic mass]29.7 pg24.7 - 34.3 pgMoberly Regional Medical CenterMCHC (RBC) [Mass/Vol]33.7 g/dL32.0 - 35.0 g/dLBothwell Regional Health CenterV (RBC) [Entitic vol]88.2 fL80 - 100 fLNOMS Healthcare Monocytes (Bld) [#/Vol]0.4 10*3/uL0.0 - 0.8 10*3/uLNOMS Healthcare Monocytes+Macrophages/100 WBC Manual cnt (Syn fld)2.3 %.[facility] Neutrophils (Bld) [#/Vol]16.5 10*3/uLHigh1.8 - 7.7 10*3/uLNOMS Healthcare Neutrophils/100 WBC Manual cnt (Syn fld)90.8 %.NOMS HealthcareNRBC0.1 /100{WBC}0 - 0.5 /100{WBC}NOMS HealthcarePlatelet mean volume (Bld) [Entitic vol]11.1 fL High6.3 - 10.7 fLNOAR HealthcarePlatelets (Bld) [#/Vol]206 10*3/uL150 - 450 10*3/uLNOAR HealthcareRBC LM.HPF (Urine sed) [#/Area]4.06 10*6/uL3.60 - 5.00 10*6/uLNOMS HealthcareWBC (Bld) [#/Vol]18.1 10*3/uLHigh3.8 - 11.6 10*3/uLNOMS HealthcareWBC LM.HPF (Urine sed) [#/Area]18.1 [CFU]/mLHigh3.8 - 11.6 [CFU]/mL [facility] HealthcareComplete Blood Count Auto Diffon 17-25-3211Vbqh Corpuscular HGB Conc33.7 g/fBGyhofs26.0-35.0The Atrium Health Physician GroupComment on above:Performed By: #### CBC #### [facility] [address] [place] [address] USANRBC%0.1 /100{WBC}Normal0-0.5[facility] Comment on above:Performed By: #### CBC #### [facility] [address] [place] [address] USAWhite Blood Count18.1 [CFU]/mLHigh3.8-11.6The [facility] Health Physician GroupComment on above:Performed By: #### CBC #### [place] [address] USAEosinophils [#/volume] in Blood by Automated countOrdered By: HUI Young on 41-33-3142Lxvnfsxddrp (Bld) [#/Vol]0.0 10*3/uLNormal 0.0-0.45[facility] John Medical CenterComment on above:Performed By: #### CBC #### [place] [address] USAEosinophils/100 leukocytes in Blood by Automated count Ordered By: HUI Young on 80-93-8097Daqvfbmgjen/100 WBC (Bld)0.0 % Normal.[facility] John Medical CenterComment on above:Performed By: #### CBC #### [place] [address] USAErythrocyte distribution width [Ratio] by Automated count Ordered By: HUI Young on 95-51-5867Icenryboyow distribution width (RBC) [Ratio]14.7 %Ykekoz86.9-15.3FPeoples HospitalComment on above:Performed By: #### CBC #### [place] [address] USAErythrocytes [#/volume] in Blood by Automated countOrdered By: HUI Young on 04-72-3489BKD (Bld) [#/Vol]4.06 10*6/uLNormal 3.60-5.00[facility] John Medical CenterComment on above:Performed By: #### CBC #### [place] [address] USAHematocrit [Volume Fraction] of Blood by Automated count Ordered By: HUI Young on 11-76-6169Sdksyuzaxk (Bld) [Volume fraction] 35.8 %Wbmhzv59.0-46.4FPeoples HospitalComment on above:Performed By: #### CBC #### [place] [address] USAHemoglobin [Mass/volume] in BloodOrdered By: HUI Young on 14-54-3764Yhvzfogqny (Bld) [Mass/Vol]12.1 g/yQUfrhkm87.8-15.[address] [facility] Medical CenterComment on above:Performed By: #### CBC #### [place] [address] USALeukocytes [#/volume] corrected for nucleated erythrocytes in Blood by Automated counOrdered By: HUI Young on 56-09-6251CUI corrected for nucl RBC Auto (Bld) [#/Vol]18.1 10*3/uLHigh3.8-11.6FPeoples HospitalLeukocytes [#/volume] in Blood by Automated countOrdered By: HUI Young on 33-64-9960PWA (Bld) [#/Vol]18.1 10*3/uLHigh3.8-11.[address] [facility] Medical CenterComment on above:Performed By: #### CBC #### [place] [address] USALymphocytes [#/volume] in Blood by Automated countOrdered By: HUI Young on 01-28-6257Verbwmlntlk (Bld) [#/Vol]1.1 10*3/uLNormal 1.00-4.8[facility] John Medical CenterComment on above:Performed By: #### CBC #### [place] [address] USALymphocytes/100 leukocytes in Blood by Automated count Ordered By: HUI Young on 53-01-9804Mfqvcrhirzq/100 WBC (Bld)6.3 % Normal.[facility] John Medical CenterComment on above:Performed By: #### CBC #### [place] [address] USAMCH [Entitic mass] by Automated countOrdered By: HUI Young on 95-83-8071VUR (RBC) [Entitic mass]29.7 ofIgydsl93.7-34.[address] [facility] Medical CenterComment on above:Performed By: #### CBC #### [place] [address] USAMCHC Auto (RBC) [Mass/Vol]Ordered By: HUI Young on 69-81-5705DYRM (RBC) [Mass/Vol]33.7 g/dL32.0-35.0[facility] John Medical CenterMCV [Entitic volume] by Automated countOrdered By: HUI Young on 25-38-6201NPD (RBC) [Entitic vol]88.2 fMTmvcgl10-663IzfcnrniwUniversity Hospitals St. John Medical CenterComment on above:Performed By: #### CBC #### [facility] [address] [place] [address] USAMonocytes [#/volume] in Blood by Automated countOrdered By: HUI Young on 76-33-3991Tqigsaqqa (Bld) [#/Vol]0.4 10*3/uLNormal 0.0-0.8[facility] John Medical CenterComment on above:Performed By: #### CBC #### [facility] [address] [place] [address] USAMonocytes/100 leukocytes in Blood by Automated count Ordered By: HUI Young on 59-70-5380Rpmrmyszv/100 WBC (Bld)2.3 %Normal .[facility] John Medical CenterComment on above:Performed By: #### CBC #### [facility] [address] [place] [address] USANeutrophils [#/volume] in Blood by Automated countOrdered By: HUI Young on 76-53-4915Icflahltqjr (Bld) [#/Vol]16.5 10*3/uLHigh 1.8-7.7FPeoples HospitalComment on above:Performed By: #### CBC #### [facility] [address] [place] [address] USANeutrophils/100 leukocytes in Blood by Automated count Ordered By: HUI Young on 80-86-7926Ufkmfeyczgp/100 WBC (Bld)90.8 % Normal.[facility] John Medical CenterComment on above:Performed By: #### CBC #### [facility] [address] [phone] USANucleated erythrocytes [Presence] in Blood by Automated countOrdered By: HUI Young on 41-06-0952Cckzkeqdw RBC Auto Ql (Bld) 0.1 /100{WBC}0-0.5FPeoples HospitalPlatelet mean volume [Entitic volume] in Blood by Automated countOrdered By: HUI Young on 38-68-9114Usjakigt mean volume (Bld) [Entitic vol]11.1 fLHigh6.3-10.7FPeoples HospitalComment on above:Performed By: #### CBC #### [facility] [address] [place] [address] USAPlatelets [#/volume] in Blood by Automated countOrdered By: HUI Young on 68-86-3852Twycfetzm (Bld) [#/Vol]206 10*3/uLNormal 150-450[facility] John Medical CenterComment on above:Performed By: #### CBC #### [facility] [address] [place], [place] [id number] USARFX RhoGAM Screenon 73-85-7794QFT RhoGAM ScreenNegativeRockledge Regional Medical Center Physician 81St Medical GroupComment on above:Order Comment: dupeRFX RhoGAM Vials Indicatedon 58-54-5385SSR RhoGAM Vials Indicated1 Dose NormalAdventhealth North Pinellas Physician GroupComment on above:Result Comment: 1 vial of RhoGAM is equivalent to 300 mcg. 1 vial will suppress alloimmunization by 15 mL of red cells or 30 mL of whole blood.RHOGAM DOSEon 92-84-5041LJMCXG DOSEPost PartumNormalAdventhealth North Pinellas Physician GroupComment on above:Result Comment: PERFORMED BY: [place] [address] PATHOLOGIST BUSINESS DATA ANALYST ELINA DURBIN M.D.Rhogam Workupon 59-00-4593Hbloms CandidateYeDeSoto Memorial Hospital Physician GroupComment on above:Order Comment: dupeResult Comment: This result is part of the RhoGAM Workup Order. This order, and result, initiates the Outpatient RhoGAM Protocol ID#: [id number].[email or web address] and Rh group Nom (Bld)Blood group B Rh(D) negative [facility] Physician GroupComment on above:Order Comment: Emilie 10-01-2024 Specimen: [id number] Received: 10/04/24 Status: TRACEY Shelton Num: [id number] Spec Type: Surgical Subm Dr: HUI Brandon Tissues: A Placenta - 3rd Trimester (Greater than 28 weeks) (PLACENTA) Procedures: José Miguel HORNE/Darius Chamorro Age/ Patient Sex Location Account Attending Physician Kerri Caceres 34/F 3S [id number] HUI Brandon SPEC NUM: [id number] RECD: 10/04/24 STATUS: TRACEY REDNONArnaldo NUM: [id number] BRENDA: 10/01/[address]: Renita Young MD-NOMS ENTERED: 10/04/24 [facility] DR: SPEC TYPE: Surgical DEPT: S ENTERED BY: [id number] RECV BY: [id number] ORDERED: HE/3, Gross/Micro L5 ORDERED: HE/3, Gross/Micro [...] 1.3 cm Number of revolutions: 11 Specimen: [id number] Received: 10/04/24 Status: TRACEY Nikita Num: [id number] Spec Type: Surgical Subm Dr: Renita Young MD-NOMS Tissues: A Placenta - 3rd Trimester (Greater than 28 weeks) (PLACENTA) Procedures: HE/3, Gross/Micro L5 Patient: Kerri Caceres [id number] (Continued) Specimen: [id number] Received: 10/04/24 (Continued) Gross Description (Continued) Signed (signature on file) Elina Durbin MD 10/06/24 1038 Specimen: [id number] Received: 10/04/24 Status: TRACEY Shelton Num: [id number] Spec Type: Surgical Subm Dr: Renita Young MD-NOMS Tissues: A Placenta - 3rd Trimester (Greater than 28 weeks) (PLACENTA) Procedures: José Miguel HORNE/Darius Chamorro Patient: Felicia Caceresica [id number] (Continued) Specimen: [id number] Received: 10/04/24 (Continued) Gross Description (Continued) True [...] Rolled membrane, two sections of cord A2-A3 Banking Specialist sections of placenta (to include thrombus in A2) (3, , Q18-7172 A) JG . Specimen: [id number] Received: 10/04/24 Status: TRACEY Shelton Num: [id number] Spec Type: Surgical Subm Dr: Renita Young MD-NOMS Tissues: A Placenta - 3rd Trimester (Greater than 28 weeks) (PLACENTA) Procedures: HE/3, Gross/Micro L5 Patient: Kerri Caceres [id number] (Continued) Signed (signature on file) Elina Durbin MD 10/06/[address] [place] [address] Physician GroupRPR W/RFX TO QUANT & TP ABS ([facility])on 04-60-7265CIX INTERPRETATIONComment.[facility] HealthcareComment on above:Syphilis: RPR with Reflex [...] or current (potential early) syphilis. Performed at: [facility] [id number] Tandem Operator: Vitaliy Lee PhD, Phone: [phone] RPR, RFX QUANT RPRNon-ReactiveNon ReactiveNovant Health Thomasville Medical Center Amphetamine Screen Ql (U)Ordered By: HUI Young on 09-30-2024 Amphetamines Ql (U)NegativeNegGrant HospitalAppearance of UrineOrdered By: HUI Young on 21-85-4094Xwrimmlrwq (U)Cloudy Critically abnormalCleSt. John of God HospitalComment on above:Order Comment: Name Collection Type:: Clean-Voided MidstreamPerformed By: #### JUNAID GALLEGOS CUU #### [facility] [address] [place] [address] USABacteria [Presence] in Urine by AutomatedOrdered By: ROVERTO Young on 04-51-6432Zrjomyex Auto Ql (U)3+ [HPF]HighNone Seen [facility] John Medical CenterBarbiturates [Presence] in Urine by Screen methodOrdered By: HUI Young on 95-15-5441Zadfhjcuafoz Screen Ql (U) NegativeNegativeUniversity Hospitals St. John Medical CenterBenzodiazepines Screen Ql (U) Ordered By: HUI Young on 19-05-8784Ffrxilramqkitzb Ql (U)Negative NegativeUniversity Hospitals St. John Medical CenterBenzoylecgonine [Presence] in Urine by Screen methodOrdered By: HUI Young on 45-71-5888Whrsbkgccctmwpt Screen Ql (U)NegativeNegativeUniversity Hospitals St. John Medical CenterBilirubin Test strip Ql (U)Ordered By: HUI Young on 18-21-7148Rnyncybsa Ql (U) NegativeNegativeUniversity Hospitals St. John Medical CenterCB W Auto Differential panel (Bld)on 11-69-8418Edzjxplbq (Bld) [#/Vol]0.1 10*3/uL0.0 - 0.2 10*3/uLNOMS HealthcareBasophils/100 WBC Manual cnt (Syn fld)0.5 %.[facility] HealthcareEosinophils (Bld) [#/Vol]0 10*3/uL0.0 - 0.45 10*3/uLNOMS HealthcareEosinophils/100 WBC Manual cnt (Syn fld)0.3 %.[facility] CenterErythrocyte distribution width (RBC) [Ratio]14.4 %11.9 - 15.3 %[facility] Medical CenterHematocrit (Bld) [Volume fraction]35.2 %34.0 - 46.4 %[facility] Medical CenterHemoglobin (Bld) [Mass/Vol]12 g/dL11.8 - 15.4 g/dL [facility] CenterInterpretation and review of laboratory resultsAbnormalMoberly Regional Medical CenterLymphocytes (Bld) [#/Vol]1.9 10*3/uL1.00 - 4.8 10*3/uLNOMS Healthcare Lymphocytes/100 WBC Manual cnt (Syn fld)20.3 %.[facility] CenterH (RBC) [Entitic mass]29.8 pg24.7 - 34.3 pgBothwell Regional Health CenterHC (RBC) [Mass/Vol]34.2 g/dL32.0 - 35.0 g/dLBothwell Regional Health CenterV (RBC) [Entitic vol]87.2 fL80 - 100 fLLAKEVIEW HOSPITAL Healthcare Monocytes (Bld) [#/Vol]0.8 10*3/uL0.0 - 0.8 10*3/uLNOMS Healthcare Monocytes+Macrophages/100 WBC Manual cnt (Syn fld)8.6 %.[facility] Neutrophils (Bld) [#/Vol]6.7 10*3/uL1.8 - 7.7 10*3/uLNOMS [...] Urine by AutoOrdered By: HUI Young on 60-71-2942Wemkl (U)YellowMemorial HospitalComment on above:Order Comment: Name Collection Type:: Clean-Voided MidstreamPerformed By: #### ADDONUAPLUS, OBUDS, CUU #### [facility] [address] [place] [address] USAComplete Blood Count Auto Diffon 23-44-0622Pbvggcrpu (Bld) [#/Vol]0.1 10*3/uLNormal0.0-0.2The [facility] Health Physician GroupComment on above: Result Comment: PERFORMED BY: [facility] [address] [place] [address] PATHOLOGIST BUSINESS DATA ANALYST ELINA DURBIN M.D.Performed By: #### RPR W RFX ####[facility] ,#### CBC ####[facility] [place] [address] [place] Basophils/100 WBC (Bld)0.5 %Normal.The Atrium Health Physician GroupComment on above:Performed By: #### RPR W RFX ####[facility] ,#### CBC ####[place] [address] [place] Eosinophils (Bld) [#/Vol]0.0 10*3/uLNormal0.0-0.45[facility] Comment on above:Performed By: #### RPR W RFX ####[facility] ,#### CBC ####[address] Eosinophils/100 WBC (Bld)0.3 %Normal.The At[facility] Health Physician GroupComment on above:Performed By: #### RPR W RFX ####[facility] ,#### CBC ####[address] Erythrocyte distribution width (RBC) [Ratio]14.4 %Ffvuxd79.9-15.3The At[facility] Health Physician GroupComment on above:Performed By: #### RPR W RFX ####[facility] ,#### CBC ####[place] [address] USAHematocrit (Bld) [Volume fraction]35.2 %Normal 34.0-46.4The At[facility] Health Physician GroupComment on above:Performed By: #### RPR W RFX ####[facility] ,#### CBC ####[place] [address] USAHemoglobin (Bld) [Mass/Vol]12.0 g/dLNormal 11.8-15.4The [facility] Health Physician GroupComment on above:Performed By: #### RPR W RFX ####[facility] ,#### CBC ####[place] [address] USALymphocytes (Bld) [#/Vol]1.9 10*3/uLNormal 1.00-4.8The At[facility] Health Physician GroupComment on above:Performed By: #### RPR W RFX ####[facility] ,#### CBC ####[place] [address] USALymphocytes/100 WBC (Bld)20.3 %Normal.The [facility] Health Physician GroupComment on above:Performed By: #### RPR W RFX ####[facility] ,#### CBC ####[address] (RBC) [Entitic mass]29.8 nrVgxflh64.7-34.3The At[facility] Health Physician GroupComment on above:Performed By: #### RPR W RFX ####[facility] ,#### CBC ####[address]V (RBC) [Entitic vol]87.2 wWZbdgml99-264Zsx At[facility] Health Physician GroupComment on above:Performed By: #### RPR W RFX ####[facility] ,#### CBC ####[place] [address] USAMean Corpuscular HGB Conc34.2 g/mXEmelve88.0-35.0The At[facility] Health Physician GroupComment on above:Performed By: #### RPR W RFX ####[facility] ,#### CBC ####[place] [address] USAMonocytes (Bld) [#/Vol]0.8 10*3/uLNormal0.0-0.8The [facility] Health Physician GroupComment on above:Performed By: #### RPR W RFX ####[facility] ,#### CBC ####[place] [address] USAMonocytes/100 WBC (Bld)8.6 %Normal.The [facility] Health Physician GroupComment on above:Performed By: #### RPR W RFX ####[facility] ,#### CBC ####[address] [address] USANeutrophils (Bld) [#/Vol]6.7 10*3/uLNormal1.8-7.7The [facility] Health Physician GroupComment on above:Performed By: #### RPR W RFX ####[facility] ,#### CBC ####[address] [address] USANeutrophils/100 WBC (Bld)70.3 %Normal.The [facility] Health Physician GroupComment on above:Performed By: #### RPR W RFX ####[facility] ,#### CBC ####[place] [address] USANRBC%0.1 /100{WBC}Normal0-0.5The At[facility] Health Physician GroupComment on above:Performed By: #### RPR W RFX ####[facility] ,#### CBC ####[address] [address] USAPlatelet mean volume (Bld) [Entitic vol]11.7 fLHigh 6.3-10.7The [facility] Health Physician GroupComment on above:Performed By: #### RPR W RFX ####[facility] ,#### CBC ####[address] [address] USAPlatelets (Bld) [#/Vol]223 10*3/uLNormal 150-450The [facility] Health Physician GroupComment on above:Performed By: #### RPR W RFX ####[facility] ,#### CBC ####[address] [address] USARBC (Bld) [#/Vol]4.04 10*6/uLNormal3.60-5.00 The [facility] Health Physician GroupComment on above:Performed By: #### RPR W RFX ####[facility] ,#### CBC ####[place] [address] USAWBC (Bld) [#/Vol]9.6 10*3/uLNormal3.8-11.6The [facility] Health Physician GroupComment on above:Performed By: #### RPR W RFX ####[facility] ,#### CBC ####[place] [address] USAWhite Blood Count9.6 [CFU]/mLNormal3.8-11.6The At[facility] Health Physician GroupComment on above:Performed By: #### RPR W RFX ####[facility] ,#### CBC ####[place] [address] USADipstick and Microscopicon 19-33-5351Zlgvznsj,Urine 3+ [HPF]NormalNone SeenThe Atrium Health Physician GroupComment on above:Order Comment: Name Collection Type:: Clean-Voided MidstreamPerformed By: #### ADDONUAPLUS, OBUDS, CUU #### [facility] [address] [place] [address] USABilirubin,UrineNegativeNormalNegativeThe Atrium Health Physician GroupComment on above:Order Comment: Name Collection Type:: Clean- Voided MidstreamPerformed By: #### ADDONUAPLUS, OBUDS, CUU #### [facility] [address] [place] [address] USAGlucose Ql (U)NormalNormalNormalThe Atrium Health Physician GroupComment on above:Order Comment: Name Collection Type:: Clean-Voided MidstreamPerformed By: #### ADDONUAPLUS, OBUDS, CUU #### [facility] [address] [place] [address] USAHyaline Casts,UrineNoneNormal0-8The [facility] Health Physician GroupComment on above:Order Comment: Name Collection Type:: Clean-Voided MidstreamPerformed By: #### ADDONUAPLUS, OBUDS, CUU #### [place] [address] USAMucus,UrineRareNormalAdventhealth North Pinellas Physician GroupComment on above:Order Comment: Name Collection Type:: Clean-Voided MidstreamResult Comment: PERFORMED BY: [place] [address] PATHOLOGIST BUSINESS DATA ANALYST ELINA DURBIN M.D.Performed By: #### ADDONUAPLUS, OBUDS, CUU #### [place] [address] USANitrite,UrineNegativeNormalNegativeAdventhealth North Pinellas Physician GroupComment on above:Order Comment: Name Collection Type:: Clean-Voided MidstreamPerformed By: #### ADDONUAPLUS, OBUDS, CUU #### [place] [id number] USANon-Squamous Epithelial Cell,U1-2NormalNone SeenThe Atrium Health Physician GroupComment on above:Order Comment: Name Collection Type:: Clean-Voided MidstreamPerformed By: #### ADDONUAPLUS, OBUDS, CUU #### [place] [address] USAOccult Blood,UrineNegativeNormalNegativeThe Atrium Health Physician GroupComment on above:Order Comment: Name Collection Type:: Clean- Voided MidstreamResult Comment: PERFORMED BY: [place] [address] PATHOLOGIST BUSINESS DATA ANALYST ELINA DURBIN M.D.Performed By: #### ADDONUAPLUS, OBUDS, CUU #### [place] [address] USAProtein,UrineNegativeNormalNegativeThe Atrium Health Physician GroupComment on above:Order Comment: Name Collection Type:: Clean-Voided MidstreamPerformed By: #### ADDONUAPLUS, OBUDS, CUU #### [place] [id number] USARBC,Ppryc5-5Qfxfle3-6Ibr [facility] Health Physician GroupComment on above:Order Comment: Name Collection Type:: Clean-Voided MidstreamPerformed By: #### ADDONUAPLUS, OBUDS, CUU #### [place] [address] USASpecificy [place],Urine1.461Lwianc2.001-1.030The [facility] Health Physician GroupComment on above:Order Comment: Name Collection Type:: Clean- Voided MidstreamPerformed By: #### ADDONUAPLUS, OBUDS, CUU #### [place] [address] USASquamous Epithelial Cell,Lvelq5-4Atlnft8-0Qlg [facility] Physician GroupComment on above:Order Comment: Name Collection Type:: Clean- Voided MidstreamPerformed By: #### ADDONUAPLUS, OBUDS, CUU #### [place] [address] USAUrobilinogen,UrineNormalNormalNormalThe Atrium Health Physician GroupComment on above:Order Comment: Name Collection Type:: Clean- Voided MidstreamPerformed By: #### ADDONUAPLUS, OBUDS, CUU #### [place] [address] USAWBC CLUMP, UrineOccasionalNormalNone SeenThe Atrium Health Physician GroupComment on above:Order Comment: Name Collection Type:: Clean- Voided MidstreamPerformed By: #### ADDONUAPLUS, OBUDS, CUU #### [place] [id number] USAWBC,Bblox77-37Icvnhw7-4Cfd [facility] Comment on above:Order Comment: Name Collection Type:: Clean-Voided Midstream Performed By: #### ADDONUAPLUS, OBUDS, CUU #### [place] [address] USAEpithelial cells.non-squamous [#/area] in Urine sediment by Automated countOrdered By: HUI Young on 09-08-3659Utsdkaqfzz cells.non-squamous Auto (Urine sed) [#/Area]1-2 [HPF]HighNone [facility] HospitalEpithelial cells.squamous [#/area] in Urine sediment by Automated countOrdered By: HUI Young on 19-32-1515Ppkrgqvdaa cells.squamous Auto (Urine sed) [#/Area]5-9 [HPF]High0-2FPeoples HospitalErythrocytes [#/area] in Urine sediment by Automated countOrdered By: HUI Young on 39-05-7099MTR Auto (Urine sed) [#/Area]3-4 [HPF]0-[address] [facility] Medical CenterGlucose [Mass/volume] in Urine by Test strip Ordered By: HUI Young on 69-39-9992Wvlhssx Test strip (U) [Mass/Vol] Normal mg/dLNormSt. Charles HospitalHemoglobin Test strip Ql (U) Ordered By: HUI Young on 31-36-5173Dazgsdzkxh Ql (U)NegativeNegative [facility] Medical CenterHyaline casts [#/area] in Urine sediment by Automated countOrdered By: HUI Young on 36-95-5165Aalbgsd casts Auto (Urine sed) [#/Area]None [LPF]0-8[facility] John Medical CenterKetones [Presence] in Urine by Test stripOrdered By: HUI Young on 09-30-2024 Ketones Ql (U)NegativeNormalNegativeUniversity Hospitals St. John Medical CenterComment on above:Order Comment: Name Collection Type:: Clean-Voided MidstreamPerformed By: #### JUNAID GALLEGOS CUU #### [place] [address] USALeukocyte clumps [Presence] in Urine by AutomatedOrdered By: HUI Young on 17-14-8890Wjlrdawlf clumps Auto Ql (U)Occasional [LPF]HighNone [facility] HospitalLeukocyte esterase [Presence] in Urine by Test stripOrdered By: HUI Young on 01-05-7878Semxeavmu esterase Test strip Ql (U)2+NormalNegGrant Hospital Comment on above:Order Comment: Name Collection Type:: Clean-Voided Midstream Performed By: #### JUNAID GALLEGOS CUU #### [facility] [address] [place] [address] USALeukocytes [#/area] in Urine sediment by Automated count Ordered By: HUI Young on 98-32-1245TID Auto (Urine sed) [#/Area]10- [HPF]High0-4FPeoples HospitalMucus [Presence] in Urine by AutomatedOrdered By: HUI Young on 42-62-5209Snrih Auto Ql (U)Rare [LPF][facility] Medical CenterNitrite Test strip Ql (U)Ordered By: ROVERTO Young on 76-18-7968Sirepob Ql (U)NegativeNegativeUniversity Hospitals St. John Medical CenterNo Panel InformationOrdered By: HUI Young on 09-30-2024 Syphilis InterpretationComment.[facility] John Medical CenterComment on above:Syphilis: RPR with Reflex [...] past or current (potential early) syphilis.Performed at: [facility] [id number] Director: Vitaliy Lee PhD, Phone: [phone] URINE DRUG SCREEN (NO THC)on 41-09-3154HMDDMNXHWFF SCREEN,URINENegativeNegativeNOMS HealthcareBARBITURATE SCREEN,URINENegativeNegativeNOMS HealthcareBENZODIAZEPINES SCREEN,URINENegativeNegativeNOMS HealthcareCOCAINE SCREEN,URINENegativeNegative NOMS HealthcareOPIATE SCREEN,URINENegativeNegativeNOMS HealthcarePHENCYCLIDINE SCREEN, URINENegativeNegativeNOMS HealthcareComment on above:These are unconfirmed results and should not be used for legal purposes. Drug Cut-Off Concentration: AMPH 1000 ng/mL KIRK 200 ng/mL KAVITHA 200 ng/mL COCM 300 ng/mL OP 300 ng/mL PCP 25 ng/mL NOMS HealthcareOB Urine Drug Screen (NO THC)on 00-07-3531Acorinckfnb Screen,UrineNegativeNormalNegativeAdventhealth North Pinellas Physician GroupComment on above: Performed By: #### JUNAID GALLEGOS CUU #### [facility] [address] [place] [address] USABarbiturate Screen,UrineNegativeNormalNegativeAdventhealth North Pinellas Physician GroupComment on above:Performed By: #### JUNAID GALLEGOS CUU #### [facility] [address] [place] [address] USABenzodiazepines Screen,UrineNegativeNormalNegativeAdventhealth North Pinellas Physician GroupComment on above:Performed By: #### JUNAID GALLEGOS, CUU #### [facility] [address] [place] [address] USACocaine Screen,UrineNegativeNormalNegativeAdventhealth North Pinellas Physician 81St Medical GroupComment on above:Performed By: #### JUNAID GALLEGOS, CUU #### [place] [address] USAOpiate Screen,UrineNegativeNormalNegativeThe Atrium Health Physician GroupComment on above:Performed By: #### JUNAID GALLEGOS, CUU #### [place] [address] USAPhencyclidine Screen, UrineNegativeNormalNegativeThe [facility] Physician 81St Medical GroupComment on above:Result Comment: These are unconfirmed results and should not be used for legal purposes. Drug Cut-Off Concentration: AMPH 1000 ng/mL KIRK 200 ng/mL KAVITHA 200 ng/mL COCM 300 ng/mL OP 300 ng/mL PCP 25 ng/mL PERFORMED BY: [place] [address] PATHOLOGIST BUSINESS DATA ANALYST ELINA DURBIN M.D.Performed By: #### JUNAID GALLEGOS, CUU #### [place] [address] USAOpiates [Presence] in Urine by Screen methodOrdered By: HUI Young on 11-25-5333Xqxaleh Screen Ql (U)NegativeNegGrant HospitalPhencyclidine Screen Ql (U)Ordered By: HUI Young on 96-95-6994Yitucbinmcjvq Ql (U)NegativeNegGrant HospitalComment on above:These are unconfirmed results and should not be used for legal purposes. Drug Cut-Off Concentration: AMPH 1000 ng/mL KIRK 200 ng/mL KAVITHA 200 ng/mL COCM 300 ng/mL OP 300 ng/mL PCP 25 ng/mLProtein Test strip (U) [Mass/Vol]Ordered By: HUI Young on 47-43-4843Jskpoly (U) [Mass/Vol]NegativeNegGrant HospitalRPR w/rfx to Quant TP Abson 16-28-5788CDR InterpretationCommentNormal.[facility] Comment on above:Result Comment: Syphilis: [...] or current (potential early) syphilis. Performed at: [facility] [id number] Tandem Operator: Vitaliy Lee PhD, Phone: [phone] PERFORMED BY: [place] [address] PATHOLOGIST BUSINESS DATA ANALYST ELINA DURBIN M.D.Performed By: #### HH #### [place] [address] USARPR, Rfx Quant RPRNon-ReactiveNormalNon ReactiveThe Atrium Health Physician GroupComment on above:Performed By: #### HH #### [facility] [address] [place] [address] USASerum RPR testOrdered By: HUI Young on 21-23-0107Rypnkz Ab RPR Ql (S)Non-ReactiveNon ReactiveUniversity Hospitals Parma Medical Centerpecific gravity Test strip (U) [Rel density]Ordered By: HUI Young on 23-27-9855Dpfjkpou gravity (U) [Rel density]1.0161.001-1.030[facility] Medical CenterUrinalysis complete panel (U)on 56-40-2987Mworucugdr (U) CloudyCritically abnormalClearNOMS HealthcareBILIRUBIN,URINENegativeNegativeNOMS HealthcareColor (U)YellowYellowNOMS HealthcareGlucose Ql (U)NormalNormal mg/dL NOMS HealthcareInterpretation and review of laboratory resultsAbnormalNOMS HealthcareKetones Ql (U)NegativeNegativeNOAR HealthcareLeukocyte esterase Test strip Ql (U)2+NegativeNOMS HealthcareNITRITE,URINENegativeNegativeNOMS HealthcareOCCULT BLOOD,URINENegativeNegativeNOMS HealthcarepH (U)5.5 [pH]5.0 - 9.0NOMS HealthcarePROTEIN,URINENegativeNegative mg/dLNOAR HealthcareSPECIFICY GRAVITY,URINE1.0161.001 - 1.030NOMS HealthcareUROBILINOGEN,URINENormalNormal mg/dLNOMS HealthcareName Collection Type:: Clean-Voided MidstreamWadsworth-Rittman HospitalUrine Cultureon 98-47-8182Bvcbxmhp identified Cx Nom (U)<9,000 colonies/ml mixed bacterial skin contaminants 2 Days PERFORMED BY: [facility] [address] [place] [address] PATHOLOGIST BUSINESS DATA ANALYST ELINA DURBIN M.D.NormalThe Atrium Health Physician GroupComment on above: Performed By: #### JUNAID GALLEGOS CUU #### [facility] [address] [place] [address] USAUrine cultureOrdered By: HUI Young on 36-81-4298Iqkefxmv identified Cx Nom (U)[address] [facility] Center Urobilinogen Test strip (U) [Mass/Vol]Ordered By: HUI Young on 72-32-5673Ydxfrasjikpu (U) [Mass/Vol]Normal mg/dLNormSt. Charles HospitalpH of Urine by Test stripOrdered By: HUI Young on 80-71-9211cC (U)5.5 [pH]Normal5.0-9.0[facility] John Medical CenterComment on above:Order Comment: Name Collection Type:: Clean-Voided MidstreamPerformed By: #### EL OBUDS, CUU #### [facility] [address] [place] [address] USAAmphetamine Screen Ql (U)Ordered By: HUI Young on 06-03-9310Xbydrzmqstng Ql (U)NegativeNegGrant HospitalAppearance of UrineOrdered By: HUI Young on 09-29-2024 Appearance (U)CloudyCritically abnormalCleSt. John of God Hospital Comment on above:Order Comment: Comment c/o urinary symptoms or increased blood pressure Name Collection Type:: Clean-Voided MidstreamPerformed By: #### EL OBUDS ####[facility] [address] [place] [address] USABacteria [Presence] in Urine by AutomatedOrdered By: HUI Young on 21-36-8100Uqditcmt Auto Ql (U)3+ [HPF]HighNone SeenUniversity Hospitals St. John Medical CenterBarbiturates [Presence] in Urine by Screen methodOrdered By: ROVERTO Young on 41-94-9339Vqgehgcedynd Screen Ql (U)NegativeNegative [facility] Medical CenterBenzodiazepines Screen Ql (U)Ordered By: ROVERTO Young on 76-13-1803Biiwbcefmdqjesd Ql (U)NegativeNegGrant HospitalBenzoylecgonine [Presence] in Urine by Screen method Ordered By: HUI Young on 41-20-1386Miwxqikrtbkwgiy Screen Ql (U) NegativeNegGrant HospitalBilirubin Test strip Ql (U) Ordered By: HUI Young on 16-35-0268Eavcvjfrr Ql (U)NegativeNegative [facility] Medical CenterColor of Urine by AutoOrdered By: HUI Young on 57-45-0565Mrror (U)ColorlessNormalYellowUniversity Hospitals St. John Medical CenterComment on above:Order Comment: Comment c/o urinary symptoms or increased blood pressure Name Collection Type:: Clean-Voided MidstreamPerformed By: #### EL OBUDS ####[address] [address] USACreatinine [Mass/volume] in UrineOrdered By: HUI Young on 98-16-3560Fqdbtfpqig (U) [Mass/Vol]54.00 mg/dLUniversity Hospitals St. John Medical CenterComment on above:No reference range establishedDipstick and Microscopicon 22-09-2437Gpvygvir,Urine3+ [HPF]NormalNone SeenThe Atrium Health Physician GroupComment on above:Order Comment: Comment c/o urinary symptoms or increased blood pressure Name Collection Type:: Clean-Voided MidstreamPerformed By: #### EL OBUDS ####[address] [address] USABilirubin,UrineNegativeNormalNegativeAdventhealth North Pinellas Physician GroupComment on above:Order Comment: Comment c/o urinary symptoms or increased blood pressure Name Collection Type:: Clean-Voided MidstreamPerformed By: #### EL, OBUDS ####[address] [address] USAGlucose Ql (U)NormalNormalNormalThe [facility] Health Physician GroupComment on above:Order Comment: Comment c/o urinary symptoms or increased blood pressure Name Collection Type:: Clean-Voided MidstreamPerformed By: #### NELLIEUAPAULETTE, OBUDS ####[address] [address] USAHyaline Casts,UrineNoneNormal0-8The [facility] Physician GroupComment on above:Order Comment: Comment c/o urinary symptoms or increased blood pressure Name Collection Type:: Clean-Voided MidstreamResult Comment: PERFORMED BY: [facility] [address] [place] [id number] PATHOLOGIST BUSINESS DATA ANALYST ELINA DURBIN M.D.Performed By: #### ADDONUAPLUS, OBUDS ####[address] [address] USANitrite,UrineNegative NormalNegativeThe Atrium Health Physician GroupComment on above:Order Comment: Comment c/o urinary symptoms or increased blood pressure Name Collection Type:: Clean-Voided MidstreamPerformed By: #### ADDONUAPLUS, OBUDS ####[address] [address] USAOccult Blood,Urine NegativeNormalNegativeThe [facility] Health Physician GroupComment on above:Order Comment: Comment c/o urinary symptoms or increased blood pressure Name Collection Type:: Clean-Voided MidstreamResult Comment: PERFORMED BY: [facility] [address] [place] [id number] PATHOLOGIST BUSINESS DATA ANALYST ELINA DURBIN M.D.Performed By: #### ADDONJULIA, OBUDS ####[address] [address] USAProtein,UrineNegative NormalNegativeThe [facility] Health Physician GroupComment on above:Order Comment: Comment c/o urinary symptoms or increased blood pressure Name Collection Type:: Clean-Voided MidstreamPerformed By: #### ADDONUAPLUS, OBUDS ####[address] [address] USARBC,Ykkwy6-8Zezxvi5-6 The [facility] Physician GroupComment on above:Order Comment: Comment c/o urinary symptoms or increased blood pressure Name Collection Type:: Clean-Voided MidstreamPerformed By: #### ADDONUAPLUS, OBUDS ####[address] [address] USASpecificy [place],Urine1.004Normal 1.001-1.030The [facility] Health Physician GroupComment on above:Order Comment: Comment c/o urinary symptoms or increased blood pressure Name Collection Type:: Clean- Voided MidstreamPerformed By: #### ADDONUAPLUS, OBUDS ####[address] [address] USASquamous Epithelial Cell,Urine 0-1Pefwbp1-5Vsb [facility] Physician GroupComment on above:Order Comment: Comment c/o urinary symptoms or increased blood pressure Name Collection Type:: Clean- Voided MidstreamPerformed By: #### ADDONUAPLUS, OBUDS ####[place] [address] USAUrobilinogen,UrineNormalNormal NormalThe [facility] Health Physician GroupComment on above:Order Comment: Comment c/o urinary symptoms or increased blood pressure Name Collection Type:: Clean-Voided MidstreamPerformed By: #### ADDONUAPLUS, OBUDS ####[place] [id number] USAWBC,Bwnhf30-19Xwolxc0-1Pap [facility] Physician GroupComment on above:Order Comment: Comment c/o urinary symptoms or increased blood pressure Name Collection Type:: Clean-Voided MidstreamPerformed By: #### ADDONUAPLUS, OBUDS ####[place] [id number] USAEpithelial cells.squamous [#/area] in Urine sediment by Automated countOrdered By: HUI Young on 81-27-5148Dlrymqeeqp cells.squamous Auto (Urine sed) [#/Area]1-2 [HPF]0-2FPeoples HospitalErythrocytes [#/area] in Urine sediment by Automated countOrdered By: ROVERTO Young on 73-89-9417OUB Auto (Urine sed) [#/Area]1-2 [HPF]0-[address] John Medical CenterGlucose [Mass/volume] in Urine by Test strip Ordered By: HUI Young on 79-49-2171Rgyuwhd Test strip (U) [Mass/Vol] Normal mg/dLNormalUniversity Hospitals St. John Medical CenterHemoglobin Test strip Ql (U) Ordered By: HUI Young on 69-86-1866Dfacfdxoni Ql (U)NegativeNegative [facility] Medical CenterHyaline casts [#/area] in Urine sediment by Automated countOrdered By: HUI Young on 65-90-4719Pnruyby casts Auto (Urine sed) [#/Area]None [LPF]0-8[facility] Medical CenterKetones [Presence] in Urine by Test stripOrdered By: HUI Young on 09-29-2024 Ketones Ql (U)NegativeNormalNegGrant HospitalComment on above:Order Comment: Comment c/o urinary symptoms or increased blood pressure Name Collection Type:: Clean-Voided MidstreamPerformed By: #### ADDONUAPLUS, OBUDS ####[place] [address] [place] Leukocyte esterase [Presence] in Urine by Test stripOrdered By: HUI Young on 25-41-9721Qxqpnkswk esterase Test strip Ql (U)[facility] North HospitalNormalGalion Community HospitalComment on above:Order Comment: Comment c/o urinary symptoms or increased blood pressure Name Collection Type:: Clean-Voided MidstreamPerformed By: #### ADDONUAPLUS, OBUDS ####[place] [id number] USALeukocytes [#/area] in Urine sediment by Automated countOrdered By: HUI Young on 38-37-2959FEG Auto (Urine sed) [#/Area]10-19 [HPF]High0-4FPeoples HospitalNitrite Test strip Ql (U)Ordered By: HUI Young on 48-08-0959Bhubwee Ql (U)Negative NegativeUniversity Hospitals St. John Medical CenterOB URINE DRUG SCREEN (NO THC)on 14-56-0517TERHEPZSQGN SCREEN,URINENegativeNegativeNOMS HealthcareBARBITURATE SCREEN,URINENegativeNegativeNOMS HealthcareBENZODIAZEPINES SCREEN,URINENegative NegativeNOMS HealthcareCOCAINE SCREEN,URINENegativeNegativeNOMS HealthcareOPIATE SCREEN,URINENegativeNegativeNOMS HealthcarePHENCYCLIDINE SCREEN, URINENegative NegativeNOMS HealthcareComment on above:These are unconfirmed results and should not be used for legal purposes. Drug Cut-Off Concentration: AMPH 1000 ng/mL KIRK 200 ng/mL KAVITHA 200 ng/mL COCM 300 ng/mL OP 300 ng/mL PCP 25 ng/mL Comment s/s of acute impairmentFIRPenn Presbyterian Medical Center Urine Drug Screen (NO THC)on 05-79-6684Mmseycjeqfo Screen,UrineNegativeNormalNegativeAdventhealth North Pinellas Physician GroupComment on above:Order Comment: Comment s/s of acute impairment Performed By: #### ADDONUAPLUS, OBUDS ####[address] [address] USABarbiturate Screen,UrineNegativeNormalNegative The [facility] Health Physician GroupComment on above:Order Comment: Comment s/s of acute impairmentPerformed By: #### ADDONUAPLUS, OBUDS ####[address] [address] USABenzodiazepines Screen,Urine NegativeNormalNegativeAdventhealth North Pinellas Physician GroupComment on above:Order Comment: Comment s/s of acute impairmentPerformed By: #### ADDONUAPLUS, OBUDS ####[address] [address] USACocaine Screen,UrineNegativeNormalNegativeThe Atrium Health Physician GroupComment on above:Order Comment: Comment s/s of acute impairmentPerformed By: #### ADDONUAPLUS, OBUDS ####[address] [address] USAOpiate Screen,UrineNegativeNormalNegativeAdventhealth North Pinellas Physician GroupComment on above:Order Comment: Comment s/s of acute impairmentPerformed By: #### ADDONUAPLUS, OBUDS ####[address] [address] USAPhencyclidine Screen, UrineNegativeNormalNegativeThe At[facility] Health Physician GroupComment on above:Order Comment: Comment s/s of acute impairmentResult Comment: These are unconfirmed results and should not be used for legal purposes. Drug Cut-Off Concentration: AMPH 1000 ng/mL KIRK 200 ng/mL KAVITHA 200 ng/mL COCM 300 ng/mL OP 300 ng/mL PCP 25 ng/mL PERFORMED BY: [facility] [address] [place] [address] PATHOLOGIST BUSINESS DATA ANALYST ELINA DURBIN M.D.Performed By: #### NATALIYA GALLEGOSS ####[facility] [place] [address] USAOpiates [Presence] in Urine by Screen methodOrdered By: HUI Young on 46-86-6373Yrnwgsy Screen Ql (U)NegativeNegGrant HospitalPhencyclidine Screen Ql (U)Ordered By: HUI Young on 11-30-3610Vahkyhyfepbah Ql (U) NegativeNegGrant HospitalComment on above:These are unconfirmed results and should not be used for legal purposes. Drug Cut-Off Concentration: AMPH 1000 ng/mL KIRK 200 ng/mL KAVITHA 200 ng/mL COCM 300 ng/mL OP 300 ng/mL PCP 25 ng/mLProtein Creat Ratio Ur Randomon 09-86-5314Hbpaomfhyc, Urine (Random)54.00 mg/dLNormalThe Atrium Health Physician GroupComment on above: Result Comment: No reference range establishedPerformed By: #### PROCRERAT #### [place] [address] USAProtein, Urine (Random)<2Tgzeou4-6Uth At[facility] Health Physician GroupComment on above:Performed By: #### PROCRERAT #### [place] [id number] USAUrine Protein/Creatinine RatioNot performedNormal0-200The At[facility] Health Physician GroupComment on above:Result Comment: PERFORMED BY: [facility] [address] [place] [address] PATHOLOGIST BUSINESS DATA ANALYST ELINA DURBIN M.D.Performed By: #### PROCRERAT #### [place] [id number] USAProtein Test strip (U) [Mass/Vol]Ordered By: HUI Young on 89-67-3179Fuxdmzg (U) [Mass/Vol]NegativeNegativeUniversity Hospitals St. John Medical CenterProtein [Mass/volume] in UrineOrdered By: HUI Young on 37-97-6715Gmdjtjs (U) [Mass/Vol]mg/dL0-9[facility] John Medical CenterProtein/Creatinine (U) [Mass ratio]on 33-63-0367Xijhmshigc spec 2 (U) [Mass/Vol]54 mg/dLMoberly Regional Medical CenterComment on above:No reference range established Protein (U) [Mass/Vol]mg/dL0 - 9 mg/dLMoberly Regional Medical CenterURINE PROTEIN/CREATININE RATIONot performed0 - 200 mg/g{Cre}[facility] Medical CenterSpecific gravity Test strip (U) [Rel density]Ordered By: HUI Young on 37-83-2916Uybabqfa gravity (U) [Rel density]1.0041.001-1.030[facility] St. John Medical CenterUS OB biophysical profileon 16-87-4236QG OB biophysical profile [facility] [place] [address] Ultrasound Report Signed Patient: Kerri Caceres MR#: [id number] 28 : 1990 Acct:[id number] Age/Sex: 34 / F ADM Date: 09/29/24 Loc: E3 Room: Type: [facility] Attending Dr: Reniat Young MD Ordering Provider: HUI [place] Date [...] Friedman M.D. 09/29/2024 5:45 PM Dictation Location: [place] [address] Tech: Yoselin Bone Transcribed By: ROHIT 09/29/241744 Dictated By: Xu Friedman II, MD 09/29/241743 Signed By: 09/29/241744[facility] Physician GroupUrinalysis complete panel (U)on 97-31-3181Nrnvzsvlhy (U)CloudyCritically abnormalClearNOMS Healthcare BILIRUBIN,URINENegativeNegativeNOMS HealthcareColor (U)ColorlessYellowNOMS HealthcareGlucose Ql (U)NormalNormal mg/dLNOMS HealthcareInterpretation and review of laboratory resultsAbnormalNOMS HealthcareKetones Ql (U)Negative NegativeNOAR HealthcareLeukocyte esterase Test strip Ql (U)NegativeNegativeNOMS HealthcareNITRITE,URINENegativeNegativeNOMS HealthcareOCCULT BLOOD,URINENegative NegativeNOMS HealthcarepH (U)6 [pH]5.0 - 9.0NOMS HealthcarePROTEIN,URINENegative Negative mg/dLNOAR HealthcareSPECIFICY GRAVITY,URINE1.0041.001 - 1.030NOMS HealthcareUROBILINOGEN,URINENormalNormal mg/dLNOAR HealthcareComment c/o urinary symptoms or increased blood pressure Name Collection Type:: Clean-Voided MidstreamWadsworth-Rittman HospitalUrine protein/creatinine ratioOrdered By: HUI Young on 09-29-2024 Protein/Creatinine (U) [Ratio]Flower HospitalComment on above:Test not performedUrobilinogen Test strip (U) [Mass/Vol]Ordered By: ROVERTO Young on 09-14-7079Kklvafryqxyq (U) [Mass/Vol]Normal mg/dLOur Lady Of Mercy HospitalpH of Urine by Test stripOrdered By: HUI Young on 77-09-9676cN (U)6.0 [pH]Normal5.0-9.0[facility] St. John Medical CenterComment on above:Order Comment: Comment c/o urinary symptoms or increased blood pressure Name Collection Type:: Clean-Voided MidstreamPerformed By: #### NELLIELUDWIGPAULETTE, OBUDS ####[facility] [address] [place] [address] USAUrinalysis macro (dipstick) panel (U)on 22-56-0999Zibyiywae, UA NegativeNegative - 4(70) +++ mg/dLNOMS HealthcareBlood, [...] mg/dLNOMS HealthcareNOMS HealthcareUrinalysis macro (dipstick) panel (U)on 65-86-8784Pvlvfhbah, UANegativeNegative - 4(70) +++ mg/dLNOMS Healthcare Blood, [...] HealthcareNOMS Healthcare Urinalysis macro (dipstick) panel (U)on 54-66-5202Vswihllyh, UANegativeNegative - 4(70) +++ mg/dLNOMS HealthcareBlood, UANegativeNegative [...] cx Ql (Unsp spec)Strep agalactiae - (group b)AbnormalUniversity Hospitals Parma Medical Centertrep B Cultureon 08-31-2024 Strep B CultureORGANISM: Strep agalactiae - (group b) (O:STRAGA) PERFORMED BY: [facility] [address] [place] [address] PATHOLOGIST BUSINESS DATA ANALYST LUZMA ROSA M.D.NormalThe Atrium Health Physician GroupComment on above: Performed By: #### CUSTB ####[facility] [place] [address] USAUrinalysis macro (dipstick) panel (U)on 08-31-2024 Glucose, UANegativeNegative - 2000(110) ++++ mg/dLNOMS HealthcareInterpretation and review of laboratory resultsNormalNOMS HealthcareProtein, UANegativeNegative - 2000(20) ++++ mg/dLNOMS HealthcareNOMS HealthcareUrinalysis macro (dipstick) panel (U)on 32-44-1313Yeewqwm, UANegativeNegative - 2000(110) ++++ mg/dLNOMS HealthcareInterpretation and review of laboratory resultsNormalNOMS Healthcare Protein, UANegativeNegative - 1999(20) ++++ mg/dLNOMS HealthcareNOMS Healthcare Urinalysis macro (dipstick) panel (U)Ordered By: Agustina Winston on 08-03-2024 Glucose, UANegativeNegative - 1999(110) ++++ mg/dLNOMS HealthcareInterpretation and review of laboratory resultsNormalNOMS HealthcareProtein, UANegativeNegative - 1999(20) ++++ mg/dLNOMS HealthcareNOMS HealthcareUrinalysis macro (dipstick) panel (U)Ordered By: Agustina Winston on 54-25-6109Kcxqaag, UANegativeNegative - 1999(110) ++++ mg/dLNOMS HealthcareInterpretation and review of laboratory resultsNormalNOMS HealthcareProtein, UANegativeNegative - 1999(20) ++++ mg/dL NOMS [facility] Medical CenterNOAR HealthcareGLUCOSE,1 HOUR PP 50GM DOSE ([facility])on 07-09-2024 Glucose [Mass/Vol]119 mg/dL60 - 140 mg/dLNOAR HealthcareNOMS HealthcareGlucose [Mass/volume] in Serum or PlasmaOrdered By: HUI Young on 07-09-2024 Glucose [Mass/Vol]119 mg/vFZgbdkf13-559EqfuoirfcUniversity Hospitals St. John Medical CenterComment on above:Result Comment: PERFORMED BY: [facility] [address] [place] [address] PATHOLOGIST BUSINESS DATA ANALYST LUZMA ROSA M.D.Performed By: #### [id number] ####[facility] [address] [place] [address] USAHematocrit [Volume Fraction] of Blood by Automated countOrdered By: HUI Young on 07-09-2024 Hematocrit (Bld) [Volume fraction]34.6 %Iwppeu90.0-46.4FPeoples HospitalComment on above:Result Comment: PERFORMED BY: [facility] [address] [place] [address] PATHOLOGIST BUSINESS DATA ANALYST LUZMA ROSA M.D.Performed By: #### HH #### [facility] [address] [place] [address] USAHemoglobin [Mass/volume] in BloodOrdered By: HUI Young on 96-10-7253Wmhcmgojli (Bld) [Mass/Vol]11.6 g/dLLow11.8-15.[address] John Medical CenterComment on above:Performed By: #### HH #### [facility] [address] [place] [id number] USARFX RhoGAM Vials Indicatedon 56-35-9910USB RhoGAM Vials Indicated1 DoseNormalThe At[facility] Health Physician 81St Medical GroupComment on above:Result Comment: 1 vial of RhoGAM is equivalent to 300 mcg. 1 vial will suppress alloimmunization by 15 mL of red cells or 30 mL of whole blood.RHOGAM DOSEon 61-91-7970SIAJKW DOSEAntenatal NormalThe At[facility] Physician 81St Medical GroupComment on above:Result Comment: PERFORMED BY: [place] [address] PATHOLOGIST BUSINESS DATA ANALYST LUZMA ROSA M.D.Rhogam Workupon 19-07-5061Nhdmsk CandidateYesNormal The [facility] Physician 81St Medical GroupComment on above:Result Comment: This result is part of the RhoGAM Workup Order. This order, and result, initiates the Outpatient RhoGAM Protocol ID#: OB.[id number] and Rh group Nom (Bld)Blood group B Rh(D) negative NormalThe Meadows Psychiatric CenterUrinalysis macro (dipstick) panel (U)Ordered By: Mona Anderson on 66-68-7085Fjeyuoyim, UANegativeNegative - 4(70) +++ mg/dL NOMS HealthcareBlood, [...] (dipstick) panel (U)Ordered By: Mona Anderson on 06-54-7309Gcmwzgjdc, UANegativeNegative - 4(70) +++ mg/dLNOMS HealthcareBlood, UANegativeNegative [...] (dipstick) panel (U)Ordered By: Mona Anderson on 67-31-2751Yzpsdwpvz, UANegativeNegative - 4(70) +++ mg/dLNOMS HealthcareBlood, UANegativeNegative - 50 [place]/mcLNOMS HealthcareClarity, UAClearNOMS Healthcare Color, UAYellowNOMS HealthcareGlucose, UANegativeNegative - 2000(110) ++++ mg/dL NOMS HealthcareInterpretation and review of laboratory resultsNormalNOMS HealthcareKetones, UANegativeNegative - 160(16) ++++ mg/dLNOMS Healthcare Leukocytes, UANegativeNegative - 500+++ Dave/mcLNOMS HealthcareNitrite, UA NegativeNegative - PositiveNOAR HealthcarepH, UA85 - 9NOAR HealthcareProtein, UA NegativeNegative - 2000(20) ++++ mg/dLLAKEVIEW HOSPITAL HealthcareSpec Grav, UA1.0151 - 1.03 NOMS HealthcareUrobilinogen, UA1.00.2 - 12 mg/dLNov[facility] Health [facility] Urinalysis macro (dipstick) panel (U)on 39-20-6272Faxdipctl, UANegativeNegative - 4(70) +++ mg/dLMoberly Regional Medical CenterBlood, UANegativeNegative - 50 [place]/mcLLAKEVIEW HOSPITAL HealthcareClarity, UACloudyNOAR HealthcareColor, UAYellowLAKEVIEW HOSPITAL HealthcareGlucose, UANegativeNegative - 2000(110) ++++ mg/dLLAKEVIEW HOSPITAL HealthcareInterpretation and review of laboratory resultsNormalNOAR HealthcareKetones, UANegativeNegative - 160(16) ++++ mg/dLLAKEVIEW HOSPITAL HealthcareLeukocytes, UANegativeNegative - 500+++ Dave/mcL [facility] HealthcareNitrite, UANegativeNegative - PositiveNOMS HealthcarepH, UA65 - 9 NOMS HealthcareProtein, UANegativeNegative - 2000(20) ++++ mg/dLMoberly Regional Medical Center Spec Grav, UA1.011 - 1.03Moberly Regional Medical CenterUrobilinogen, UA1.00.2 - 12 mg/dLNovant Health Thomasville Medical CenterLaboratory - Cytologyon 13-07-7516Qpndsflhlc Cyto stain Nom (Cvx/Vag) [ID]CommentMoberly Regional Medical CenterComment on above:Maylin Padron, CytotechnologistCytology report Cyto stain Doc (Cvx/Vag)[facility] Comment on above:NEGATIVE FOR INTRAEPITHELIAL LESION OR MALIGNANCY.Cytology report Cyto stain.thin prep Doc (Cvx/Vag)CommentMoberly Regional Medical CenterComment on above: This liquid based ThinPrep(R) pap test was screened with the use of an image guided system. Statement of adequacy Cyto stain (Cvx/Vag) [Interp]CommentMoberly Regional Medical CenterComment on above:Satisfactory for evaluation. No endocervical component is identified. Laboratory - Microbiology and Antimicrobial susceptibilityon 07-74-6054DNY 16+18+31+33+35+39+45+51+52+56+58+59+66+68 DNA Probe+sig amp Ql (Cvx)Negative NegativeLAKEVIEW HOSPITAL HealthcareComment on above:This nucleic acid amplification test detects fourteen high-risk HPV types (16,18,31,33,35,39,45,51,52,56,58,59,66,68) without differentiation. Microscopic observation Other stain Nom (Unsp spec).NOMS HealthcareNo Panel Informationon 06-61-8635Uesrqqrmd ICD code [Identifier]CommentNOMercy hospital springfield Comment on above:Z01.419 Z12.4 Note:CommentNOMercy hospital springfieldComment on above:The Pap smear is a screening test designed to aid in the detection of premalignant and malignant conditions of the uterine cervix. It is not a diagnostic procedure and should not be used as the sole means of detecting cervical cancer. Both false-positive and false-negative reports do occur. Performed at: 01 - Lab[address] [id number] Tandem Operator: Jacquie Aldana MD, Phone: [phone] Performed at: 02 - Labco[address] [id number] Tandem Operator: Jacquie Aldana MD, Phone: [phone] Specimen Comment: No. of containers..01 ThinPrep VialLABAllendale County [facility] Laboratory - Specimen informationon 96-33-1370Tvohikpy type Nom (Spec)swabMoberly Regional Medical CenterNo Panel Informationon 98-82-5233IJGJLBJUNTC DNA(PCR)NegativeNegatvie [facility] HealthcareInterpretation and review of laboratory resultsNormWayne Memorial Hospital HealthcareUrinalysis macro (dipstick) panel (U)Ordered By: Mona Anderson on 50-44-0249Oduksskwx, UANegativeNegative - 4(70) +++ mg/dLNOAR HealthcareBlood, UANegativeNegative - 50 [place]/mcLNOAR HealthcareClarity, UAClear [facility] HealthcareColor, UAYellowNOAR HealthcareGlucose, UANegativeNegative - 2000(110) ++++ mg/dLLAKEVIEW HOSPITAL HealthcareInterpretation and review of laboratory resultsNormalLAKEVIEW HOSPITAL HealthcareKetones, UANegativeNegative - 160(16) ++++ mg/dLNOAR HealthcareLeukocytes, UANegativeNegative - 500+++ Dave/mcLNOAR Healthcare Nitrite, UANegativeNegative - PositiveNOMS HealthcarepH, UA65 - 9NO[facility] Healthcare Protein, UANegativeNegative - 2000(20) ++++ mg/dLNOAR HealthcareSpec Grav, UA 1.0251 - 1.03NOAR HealthcareUrobilinogen, UA1.00.2 - 12 mg/dLNOAR HealthcareNOAR Healthcare Vital Signs Date TimeVital SignValuePerforming OsfdehdlfItzdqhij92-68-4077 10:56-0400Body abvifm768.7 Mateo Young MD Work Phone: [phone])[address] [place], [place] 6282209-03-2025 10:56-0400Body mass index (BMI) [Ratio]34.97 kg/p1JizpsqRenita Young MD Work Phone: 1(827)[address] [place], [place] 6282209-03-2025 10:56-0400Body upylqm058.33 kgRenita Young MD Work Phone: 1(800)[address] [place], [place] 6282209-03-2025 10:56-0400Diastolic blood zfqgpolz02 mm[Hg]Renita Young MD Work Phone: 1(581)[address] [place], [place] 6282209-03-2025 10:56-0400Systolic blood qxuauzhc162 mm[Hg]Renita Young MD Work Phone: 1(011)[address] [place], [place] [address]28[address]7-30-2025 13:12-0400Body mass index (BMI) [Ratio]34.72 kg/b8BaownxRenita Young MD Work Phone: 1(991)[address] [place], [place] [address]282207-30-2025 13:12-0400Body ouunnk597.33 kgRenita Young MD Work Phone: 1(646)[address] [place], [place] [address]28[address]7-30-2025 13:12-0400Diastolic blood zbjvthal67 mm[Hg]Renita Young MD Work Phone: 1(108)[facility] [place], [place] [address]Nlolvvvtxw86-17-2773 13:12-0400Systolic blood hpkwaqaw060 mm[Hg]Renita Young MD Work Phone: 1(977)[address] [place], [place] [address]282207-09-2025 09:43-0400Body mass index (BMI) [Ratio]35.77 kg/y4WwabcwRenita Young MD Work Phone: [phone])[address]07-09-2025 09:43-0400Body .5 kgRenita Young MD Work Phone: 1(189)[facility] Medical CenterAschrhuxip03-88-9339 09:43-0400Diastolic blood pnseoovp67 mm[Hg]Renita Young MD Work Phone: 1(964)[facility] Medical CenterTrryykpwvr04-11-6253 09:43-0400Systolic blood mmceyzzb630 mm[Hg]Renita Young MD Work Phone: 1(481)[address] [place], [place] 6282207-02-2025 09:20-0400Body mass index (BMI) [Ratio]37.58 kg/p8DvbwxjRenita Young MD Work Phone: 1(830)[address] [place], [place] [address]282207-02-2025 09:20-0400Body cbdzte159.95 kgRenita Young MD Work Phone: 1(795)[facility] [place], [place] [address]Mytssqeqks16-66-3163 09:20-0400Diastolic blood cwdaheax11 mm[Hg]Renita Young MD Work Phone: 1(400)588-[address] [place], [place] [address]Mwnbxctwry55-17-6140 09:20-0400Systolic blood mm[Hg]Renita Young MD Work Phone: 1(133)938-[address] [place], [place] [address]Agppgtynao65-84-1646 10:00-0400Body temperature 97.9 [degF]Amy Kingsley APRN Work Phone: [facility]06-23-2025 10:00-0400 Diastolic blood mm[Hg]Amy Kingsley APRN Work Phone: [facility]06-23-2025 10:00-0400 Heart rate97 /Teresa Kingsley APRN Work Phone: [facility]06-23-2025 10:00-0400 Respiratory rate18 /Teresa Kingsley APRN Work Phone: [phone]06-23-2025 10:00-0400 SaO2% (BldA) [Mass fraction]99 %Amy Subramanianisidrokathrynjalil SALES DATA ANALYST Work Phone: 1(272)683-[address] [place], [place] 539[address]06-23-2025 10:00-0400 Systolic blood uwmfvyws957 mm[Hg]Amy Gamboar SALES DATA ANALYST Work Phone: [phone]06-19-2025 08:33-0400 Body qnbgdi456.72 cmAmy Subramanianrbacher SALES DATA ANALYST Work Phone: 1(518)[address] [place], [place] 50[address]106-19-2025 08:33-0400 Body ivktgv891.02 kgAmy Subramanianrbacher SALES DATA ANALYST Work Phone: 1(121)[address] [place], [place] 50[address]106-18-2025 15:30-0400 Body rwombiqufsj92.9 [degF]Amy Subramaniankemar SALES DATA ANALYST Work Phone: 1(127)[address] [place], [place] [address]106-18-2025 15:30-0400 Diastolic blood mm[Hg]Amy Subramanianmicheller SALES DATA ANALYST Work Phone: 1(857)[address]06-18-2025 15:30-0400 Heart rate68 /Teresa Subramanianrbacher SALES DATA ANALYST Work Phone: 1(580)[address] [place], [place] [address]106-18-2025 15:30-0400 Respiratory rate16 /Teresa Subramanianrbacher SALES DATA ANALYST Work Phone: 1(350)[facility] [place], [place] [address]06-18-2025 15:30-0400 Systolic blood iaqbbaut578 mm[Hg]Amy Subramanianisidrokathrynr SALES DATA ANALYST Work Phone: 1(133)[address] [place], [place] [address]106-18-2025 15:12-0400 SaO2% (BldA) [Mass fraction]100 %Amy Subramaniankemar SALES DATA ANALYST Work Phone: 1(054)[address] [place], [place] [address]106-18-2025 11:48-0400 Body riujjn998.72 cmAmy Subramanianrbacher SALES DATA ANALYST Work Phone: 1(783)903-[address] [place], [place] [address]06-18-2025 11:48-0400 Body dejfeh211.02 kgMannykelly Kingsley APRN Work Phone: [facility]06-10-2025 14:18-0400 Body mass index (BMI) [Ratio]39.09 kg/s7SjehnsRenita Young MD Work Phone: 1(724)504-[facility] Medical CenterLrzxhzqqwr60-41-9860 14:18-0400Body ozsspf958.48 Salvador Young MD Work Phone: 1(299)077-[address] [place], [place] [address]Xodcjvrkdq52-15-9848 14:18-0400Diastolic blood efvrjbgx74 mm[Hg]Renita Young MD Work Phone: 1(174)804-[address] [place], [place] [address]Pxpxiqlsjj74-07-0150 14:18-0400Systolic blood gxulfwtn205 mm[Hg]Renita Young MD Work Phone: 1(275)996-[address] [place], [place] [address]Vuyawtyspy98-03-7441 12:39-0400Body mass index (BMI) [Ratio]38.94 kg/a4HfjzmxRenita Young MD Work Phone: 1(370)[address]06-03-2025 12:39-0400Body iewyte686.03 Salvador Young MD Work Phone: 1(641)375-[address] [place], [place] [address]Brqaakteah05-52-6742 12:39-0400Diastolic blood wbndetsc85 mm[Hg]Renita Young MD Work Phone: 1(429)822-[address] [place], [place] [address]Qqmnhvumqz58-79-4599 12:39-0400Systolic blood rxmshlfo263 mm[Hg]Renita Young MD Work Phone: 1(518)[address]05-28-2025 09:54-0400Body mass index (BMI) [Ratio]38.79 kg/k4KdryrsRenita Young MD Work Phone: 1(854)905-[address] [place], [place] [address]Kjzryeufed70-81-6277 09:54-0400Body .57 Salvador Young MD Work Phone: 1(219)663-[address] [place], [place] [address]Bgspnammpk57-33-4826 09:54-0400Diastolic blood mm[Hg]Renita Young MD Work Phone: 1(606)173-[address] [place], [place] [address]Bhvdsihbzr50-07-7189 09:54-0400Systolic blood wgetjkxk761 mm[Hg]Renita Young MD Work Phone: 1(104)[facility] [place], [place] [address]Emyyiewccr32-96-5143 12:32-0400Body mass index (BMI) [Ratio]38.49 kg/o6EvekrxRenita Young MD Work Phone: 1(192)[facility] [place], [place] [address]Jenrtaxtia18-83-6312 12:32-0400Body asyfwj770.67 kgRenita Young MD Work Phone: 1(479)[address] [place], [place] 6282205-20-2025 12:32-0400Diastolic blood uqdkfufe23 mm[Hg]Renita Young MD Work Phone: 1(191)[address] [place], [place] 6282205-20-2025 12:32-0400Systolic blood vtldqdot101 mm[Hg]Renita Young MD Work Phone: 1(642)[address] [place], [place] 6282205-06-2025 15:03-0400Body mass index (BMI) [Ratio]38.19 kg/n9WcxladRenita Young MD Work Phone: 1(905)[address] [place], [place] 6282205-06-2025 15:03-0400Body sexnqy083.76 Salvador Young MD Work Phone: 1(758)[address] [place], [place] 6282205-06-2025 15:03-0400Diastolic blood mm[Hg]Renita Young MD Work Phone: 1(992)[address] [place], [place] 6282205-06-2025 15:03-0400Systolic blood mqwojaqu765 mm[Hg]Renita Young MD Work Phone: 1(142)[address] [place], [place] 6282204-22-2025 08:34-0400Body mass index (BMI) [Ratio]37.43 kg/j9JslhgxRenita Young MD Work Phone: 1(555)[address] [place], [place] 6282204-22-2025 08:34-0400Body voknja729.49 Salvador Young MD Work Phone: 1(646)[address] [place], [place] 6282204-22-2025 08:34-0400Diastolic blood zvepkowj20 mm[Hg]Renita Young MD Work Phone: 1(090)[address] [place], [place] 6282204-22-2025 08:34-0400Systolic blood ylwbvapq354 mm[Hg]Renita Young MD Work Phone: 1(988)[address] [place], [place] 6282204-01-2025 15:12-0400Body mass index (BMI) [Ratio]36.98 kg/x7MturenRenita Young MD Work Phone: 1(145)092-[facility] CenterFuvvhnohlf26-20-1427 15:12-0400Body .13 Salvador Young MD Work Phone: [facility] CenterYtdsnggarc22-48-6013 15:12-0400Diastolic blood tdqlsvuw01 mm[Hg]Renita Young MD Work Phone: 1(248)226-[facility] CenterUrevhgdmjd80-03-5938 15:12-0400Systolic blood yiprmeau461 mm[Hg]Renita Young MD Work Phone: 1(738)122-[address] [place], [place] [address]Jxqpfigqef59-31-8658 14:17-0400Diastolic blood ffdedxkd40 mm[Hg]Amy Kingsley APRN Work Phone: [facility]03-28-2025 14:17-0400 Heart rate90 /minJekelly Kingsley APRN Work Phone: [facility]03-28-2025 14:17-0400 Systolic blood eovyqkud324 mm[Hg]Amy Kingsley APRN Work Phone: [facility]03-04-2025 12:39-0500 Body mass index (BMI) [Ratio]36.98 kg/r6OwxkubRenita Young MD Work Phone: 1(058)567-[facility] CenterQaprceialh93-94-9177 12:39-0500Body wezrqn326.13 Salvador Young MD Work Phone: 1(854)811-[facility] CenterLowshyuqxe60-58-0097 12:39-0500Diastolic blood zditdnuy61 mm[Hg]Renita Young MD Work Phone: 1(263)305-[facility] CenterQbaemolwis46-60-3947 12:39-0500Systolic blood nmwmutvf642 mm[Hg]Renita Young MD Work Phone: 1(538)231-[facility] CenterBkjfajdxwg05-17-7209 16:17-0500Body mass index (BMI) [Ratio]36.68 kg/q9LnxxxwRenita Young MD Work Phone: 1(419)[address]02-04-2025 16:17-0500Body vqorkw892.22 Salvador Young MD Work Phone: 1(459)[address] [place], [place] 6282202-04-2025 16:17-0500Diastolic blood mm[Hg]Renita Young MD Work Phone: 1(686)[address] [place], [place] 6282202-04-2025 16:17-0500Systolic blood nyrvdain681 mm[Hg]Renita Young MD Work Phone: 1(186)[address] [place], [place] 6282201-28-2025 12:31-0500Body mass index (BMI) [Ratio]36.38 kg/y4ObdzocRenita Young MD Work Phone: 1(469)[address] [place], [place] 6282201-28-2025 12:31-0500Body gfhpka449.32 kgRenita Young MD Work Phone: 1(064)[address] [place], [place] 6282201-28-2025 12:31-0500Diastolic blood yqjohkfw03 mm[Hg]Renita Young MD Work Phone: 1(279)[address] [place], [place] 6282201-28-2025 12:31-0500Systolic blood omujlprs802 mm[Hg]Renita Young MD Work Phone: 1(466)[address] [place], [place] 6282201-14-2025 08:41-0500Body mass index (BMI) [Ratio]36.68 kg/u1MtrcxeRenita Young MD Work Phone: 1(475)[address] [place], [place] 6282201-14-2025 08:41-0500Body hitqqw584.22 Salvador Young MD Work Phone: 1(486)[address] [place], [place] 6282201-14-2025 08:41-0500Diastolic blood exmcbzjw39 mm[Hg]Renita Young MD Work Phone: 1(094)[address] [place], [place] 6282201-14-2025 08:41-0500Systolic blood lnhqihlu901 mm[Hg]Renita Young MD Work Phone: 1(263)[address] [place], [place] 6282212-16-2024 08:58-0500Body awvjhd143.4 Mateo Young MD Work Phone: 1(596)[address] [place], [place] 6282212-16-2024 08:45-0500Body mass index (BMI) [Ratio]36.38 kg/t1DwikffRenita Young MD Work Phone: [facility] CenterBldkfkdwoy20-75-0250 08:45-0500Body qcuuih592.32 kgRenita Young MD Work Phone: [facility] CenterTxtismeexl84-11-3970 08:45-0500Diastolic blood xivfvuyf31 mm[Hg]Renita Young MD Work Phone: [facility] CenterJpwcwnjupi15-34-7335 08:45-0500Systolic blood vklywowa977 mm[Hg]Renita Young MD Work Phone: [facility] CenterUwtxcrlvfz49-01-0441 14:34-0500Body cmijec261.[address] [facility]11-12-2024 14:34-0500Body mass index (BMI) [Ratio]36.3 kg/a2ZvdiygaxkUniversity Hospitals St. [facility]11-12-2024 14:34-0500Body eythcxswdkt62.8 [degF][facility]11-12-2024 14:34-0500Body yxmdwi941.[address] [facility]11-12-2024 14:34-0500Diastolic blood mm[Hg][facility]11-12-2024 14:34-0500 Heart fans950 /minUniversity Hospitals St. [facility]11-12-2024 14:34-7354YmJ1% (BldA) [Mass fraction]98 %[facility]11-12-2024 14:34-0500 Systolic blood ijvrhiup611 mm[Hg][facility]02-12-2024 12:20-0500Body gjbffy088.63 cmAmanda Diogenes Other [facility] Other 02-12-2024 12:20-0500Body eeprxckqbci41.7 [degF]Payton Diogenes Other [facility] Other 02-12-2024 12:20-0500Respiratory rate18 /minAmanda Diogenes Other [place] [facility] Other 02-12-2024 12:20-4557QoL5% (BldA) [Mass fraction]98 % Payton Shetty Other [employer] Other 12-10-2023 12:25-0500Body fjncof775.63 cmPlilia Monte Other [employer] Other 12-10-2023 12:25-0500Body mass index (BMI) [Ratio] 36.29 kg/y8YjonulKrysta Monte Other [employer] Other 12-10-2023 12:25-0500Body oqugvfcgwry39.1 [degF]Krysta Monte Other [employer] Other 12-10-2023 12:25-0500Body xzmvuk874.68 kgKrysta Monte Other [employer] Other 12-10-2023 12:25-0500Diastolic blood obtcqfli71 mm[Hg] Krysta Nyemond Other [employer] Other 12-10-2023 12:25-0083RbO5% (BldA) [Mass fraction]97 % Krysta Nyemond Other [employer] Other 12-10-2023 12:25-0500Systolic blood kgqnegnk405 mm[Hg] Krysta Nyemond Other [employer] Other Encounters Encounter DateEncounter TypeCare ProviderFacilityStart: 01-26-2025 End: 08-80-6507Btvzehbpo encounterRenita Young MD Work Phone: [facility] [place] OBGYNStart: 12-15-2024 End: 12-98-2834Aeacug outpatient visit 10 minutesRenita Young MD Work Phone: noms [place] OBGYNComment on above:Acute postoperative pain; Incisional painStart: 12-15-2024 End: 12-03-7864hlfafbgcybJBOHNY P JONESNot AvailableStart: 11-10-2024 End: 06-66-3496Ggnogqwsrk care Dory Young MD Work Phone: noMS [facility] OBGYNComment on above:General counseling and advice on contraceptive management (Primary Dx); care following delivery ([facility]); Acute postoperative painStart: 11-10-2024 End: 89-89-7640ghnjqlegbmZBTUSL P JONESNot AvailableStart: 10-20-2024 End: 41-31-1878Ppjyrtgm flow sheetRenita Young MD Work Phone: noms [facility] OBComment on above: care following delivery ([facility]); Acute postoperative painStart: 10-20-2024 End: 44-38-7365koarclmvceHCBNLE P JONESNot AvailableStart: 10-14-2024 End: 72-28-9151Pthoymy encounter Peter Pathak MD- Visit Work Phone: Start: 10-14-2024 End: 58-52-2053wjzrqvucvjEKBMercy [facility] Work Phone: Start: 10-13-2024 End: 46-63-5514Exaailficf care Dory Young MD Work Phone: noms [facility] OBComment on above:Acute postoperative pain (Primary Dx)Start: 10-13-2024 End: 60-10-2496nreomrujnaHKLYKU P JONESNot AvailableStart: 10-06-2024 End: 43-16-2160Ckhfwhh encounter Shireen Rowell- Visit Work Phone: Start: 10-06-2024 End: 59-24-2528ilylpnhcyjIehfmlxsLeydi Kingsley APRN Work Phone: [facility] Work Phone: Start: 10-02-2024 End: 44-06-3624Eohueuai Result EncounterRenita Young MD Work Phone: noms External Department UnsolicitedStart: 10-02-2024 End: 98-32-4552Xxfonhmq Result Iron Young MD Work Phone: noms External Department UnsolicitedStart: 09-30-2024 End: 46-30-1656Givfhjuh Result EncounterRenita Young MD Work Phone: noms External Department UnsolicitedStart: 09-30-2024 End: 00-45-8844Ckkilweo Result Iron Young MD Work Phone: noms External Department UnsolicitedStart: 09-30-2024 End: 99-00-2286Ifvbguhjdj and management of inpatientMD-REE Young-[facility] Work Phone: Start: 09-29-2024 End: 47-96-3018Rkmblyda Result EncounterRenita Young MD Work Phone: noms External Department UnsolicitedStart: 09-29-2024 End: 37-10-4439Tnqshdgf Result Iron Young MD Work Phone: noms External Department UnsolicitedStart: 09-29-2024 End: 48-41-8400cgdfcawhtxHRZ STAFFFacility:[facility] Start: 09-29-2024 End: 07-65-6893Fllnqulm flow sheetRenita Young MD Work Phone: noms SWS OBComment on above:Third trimester ([facility]); Vaginal bleeding during ([facility]); Intertrigo; Rh negative status during in second trimester ([facility]); Anemia, unspecified type; 39 weeks gestation of ([facility])Start: 09-29-2024 End: 10-47-4905Fegnvtg encounter procedureNoms Sws Ob NurseNOMS SWS OBComment on above:39 weeks gestation of ([facility]); Vaginal bleeding during ([facility])Start: 09-29-2024 End: 14-29-9032fuhbdamhngWRDYNJ P JONESNot AvailableStart: 09-21-2024 End: 98-93-1424viedcgimeuLNMOXT JONESNot AvailableStart: 09-21-2024 End: 07-77-9762Elqivga encounter procedureNoms Sws Ob NurseNOMS SWS OBComment on above:37 weeks gestation of ; Vaginal bleeding during pregnancyStart: 09-21-2024 End: 49-96-0199Zgtoouwd flow Abdulkadir Young MD Work Phone: NOMS [facility] OBComment on above:Third trimester ([facility]); 37 weeks gestation of ([facility]); Vaginal bleeding during ([facility]); Intertrigo; Rh negative status during in second trimester ([facility]); Anemia, unspecified typeStart: 09-21-2024 End: 86-72-2444Qaxnmr Durga Young MD Work Phone: NOMS [facility] OBStart: 09-21-2024 End: 45-67-7721Kndiiw Durga Young MD Work Phone: noMS [facility] OBStart: 09-21-2024 End: 92-37-1269zlkprvjxcvEYPGSF P JONESNot AvailableStart: 09-14-2024 End: 57-84-9388Tmwhgyi encounter procedureNoms Sws Ob NurseNOMS SWS OBComment on above:36 weeks gestation of ; Vaginal bleeding during pregnancyStart: 09-14-2024 End: 29-77-6097Iwmrdh Durga Young MD Work Phone: N[facility]S SWS OBStart: 09-14-2024 End: 97-64-3222Cjevasbethel Young MD Work Phone: N[facility] SWS OBStart: 09-14-2024 End: 34-57-1771sxzykdoebtVWUZDB JONESNot AvailableStart: 09-14-2024 End: 05-70-1111Noyfjcxh emily Young MD Work Phone: noms [facility] OBComment on above:Third trimester ; 36 weeks gestation of ; Intertrigo; Rh negative status during in second trimester; Anemia, unspecified typeStart: 09-14-2024 End: 28-78-1594phjugdgihiKYUOAE P JONESNot AvailableStart: 09-08-2024 End: 37-62-0751Ppsmsj Durga Young MD Work Phone: noms [facility] OBStart: 09-08-2024 End: 12-36-4296Pzfhpo Durga Young MD Work Phone: noms [facility] OBStart: 09-08-2024 End: 66-77-7878Oxczdcer emily Young MD Work Phone: noms [facility] OBComment on above:Third trimester ; 36 weeks gestation of ; Intertrigo; Rh negative status during in second trimester; Anemia, unspecified typeStart: 09-08-2024 End: 71-88-6544siehysrvnkYFEKPU P JONESNot AvailableStart: 08-31-2024 End: 80-16-9994cgizzcqwleNwnora P JonesFacility:[facility] Centertart: 08-31-2024 End: 31-32-9871Ukytjeoq [facility]REE [facility] Work Phone: Start: 08-31-2024 End: 51-67-3794Uxmzabrx flow Abdulkadir Young MD Work Phone: noms [facility] OBComment on above: screening for streptococcus B; Third trimester ; 34 weeks gestation of ; Intertrigo; Rh negative status during in second trimester; Anemia, unspecified typeStart: 08-31-2024 End: 24-90-1054nezjmfzpvnBQDQOZ P JONESNot AvailableStart: 08-17-2024 End: 76-51-1710Ablbehcl emily Young MD Work Phone: noms [facility] OBComment on above:Third trimester ; 32 weeks gestation of ; Intertrigo; Rh negative status during in second trimester; Anemia, unspecified typeStart: 08-17-2024 End: 43-86-6807rqfxlkidokPOKCLM P JONESNot AvailableStart: 08-17-2024 End: 90-37-9907Kqujvr Durga Young MD Work Phone: NOOW [facility] OBStart: 08-17-2024 End: 89-38-5611Ykfuop Durga Young MD Work Phone: NOPZ [facility] OBStart: 08-03-2024 End: 21-77-3008Onxjuc Durga Young MD Work Phone: NOCX [facility] OBStart: 08-03-2024 End: 04-75-4147Uiacos Durga Young MD Work Phone: NOXT [facility] OBStart: 08-03-2024 End: 38-45-6685Hxprizww flow Abdulkadir Young MD Work Phone: noms [facility] OBComment on above:Third trimester ; 30 weeks gestation of ; Intertrigo; Rh negative status during in second trimester; Anemia, unspecified typeStart: 08-03-2024 End: 04-75-0805efztgcvbchAXGHKW P JONESNot AvailableStart: 07-13-2024 End: 47-69-9354Axabhyum flow Abdulkadir Young MD Work Phone: noms [facility] OBComment on above:Anemia, unspecified type (Primary Dx); Second trimester ; 27 weeks gestation of ; Intertrigo; Rh negative status during in second trimesterStart: 07-13-2024 End: 95-89-3040ygwtqzktdeIBDEGW P JONESNot AvailableStart: 07-13-2024 End: 88-97-6170Wvmacc Durga Young MD Work Phone: noms [facility] OBStart: 07-13-2024 End: 52-91-9061Bnrzso Durga Young MD Work Phone: noms [facility] OBStart: 07-09-2024 End: 59-05-5500Lqfxlrjb Result Iron Young MD Work Phone: noms External Department UnsolicitedStart: 07-09-2024 End: 70-93-9714Blsujkmn Result EncounterRenita Young MD Work Phone: noms External Department UnsolicitedStart: 07-09-2024 Registered RecurringMD-NOMEric Young-Infusion Therapy - O/P Work Phone: Start: 42-50-5870shronehxatDjvljsuo Rohrbacher Facility:[facility]ertart: 81-55-5082Baoebnqiy for blood typingRenita Rowland [facility] Phys[facility] GroupStart: 06-15-2024 End: 00-51-6655Caowcov encounter statusRenita Young MD Work Phone: noms HealthcareStart: 06-15-2024 End: 72-43-9156Scylfyus flow Abdulkadir Young MD Work Phone: noms SWS OBComment on above:23 weeks gestation of ; Second trimester ; Intertrigo; Screening for diabetes mellitus (DM); Blood typing encounter; Rh negative status during in second trimester; Encounter for blood typingStart: 06-15-2024 End: 63-08-1551nbtghvztxpYWCHKG P JONESNot AvailableStart: 05-18-2024 End: 52-49-2022Yadvwjam flow Abdulkadir Young MD Work Phone: noms SWS OBComment on above:19 weeks gestation of ; Second trimester ; IntertrigoStart: 05-18-2024 End: 38-33-8552opbdcyzqiiCCXKZE P JONESNot AvailableStart: 05-11-2024 End: 13-55-3268Ztlbak Durga Young MD Work Phone: noms SWS OBStart: 05-11-2024 End: 28-81-8252Mgvxhy Durga Young MD Work Phone: noms SWS OBStart: 05-11-2024 End: 55-59-4224Ialdhauc flow Abdulkadir Young MD Work Phone: noms [facility] OBComment on above:Intertrigo (Primary Dx); 18 weeks gestation of ; Second trimester pregnancyStart: 05-11-2024 End: 07-11-8040aanhxanjikZZSDOT P JONESNot AvailableStart: 04-27-2024 End: 76-90-7395Nuumns Durga Young MD Work Phone: NOMS [facility] OBStart: 04-27-2024 End: 59-36-1098Soukpy Durga Young MD Work Phone: NOMS [facility] OBStart: 04-27-2024 End: 62-20-8903Klkblvas flow Abdulkadir Young MD Work Phone: [facility] OBComment on above:16 weeks gestation of ; Second trimester ; care, subsequent in first trimester; Screening for genetic disease carrier statusStart: 04-27-2024 End: 24-52-9823cfvmzdsiouIACDJF P JONESNot AvailableStart: 03-29-2024 End: 32-64-4278Lafwsi Durga Young MD Work Phone: [facility] OBStart: 03-29-2024 End: 02-66-7149Xbtkvu Durga Young MD Work Phone: [facility] OBStart: 03-29-2024 End: 20-26-6103Uqhvzrm encounter statusRenita Young MD Work Phone: [facility] HealthcareStart: 03-29-2024 End: 01-81-8144Tuseaxln flow Abdulkadir Young MD Work Phone: NOMS [facility] OBComment on above:GA: 06t3gGelhn: 03-29-2024 End: 49-13-0006gkaxcosycwUEWZTY P JONESNot AvailableStart: 03-25-2024 End: 15-91-8805tkeygbwcnjZEKBAQ JONESNot AvailableStart: 03-04-2024 End: 33-33-9453Ommcqkui flow zahraaNoms [facility] NurseNOMS [facility] OBComment on above: GA: 8f0yRmwlu: 03-04-2024 End: 70-83-1198tthlofjpzpILCCYH JONESNot AvailableStart: 84-97-8978Evhdaak encounter statusAmy Kingsley APRN Work Phone: [facility]ertart: 02-24-2024 End: 10-01-5005hfixpaeuytYdsgvyqhqBet[facility]da [facility] Work Phone: Start: 02-24-2024 End: 89-25-0978Tlhervc encounter procedureAtrium Health Phys[facility] Work Phone: Start: 05-26-2023 End: 28-22-2993rraadxzopfUquwgb Diogenes Other [employer] Other Start: 27-18-5696Aixomi outpatient visit 15 minutes Payton GrobFPG [facility] ClydeStart: 03-23-2023 End: 70-35-8481gqnnzzhsdbAcfebl Mell Other [employer] Other Start: 32-50-9041Rekewo outpatient new 10 minutes Krysta DymondFPG Urgent Care ClydeStart: 05-24-2020 End: 62-73-0841Dgmazua encounter procedureNONE LISTED REQUESTFacility:V1Zmfnt: 04-26-2020 End: 11-80-6012Pwtukuy encounter procedureNONE LISTED REQUESTFacility:H1 Procedures DateProcedureProcedure DetailPerforming ClinicianStart: 53-59-6731Rspohkrp screenAmy Montanaomment on above:Order Comment: dupeStart: 10-02-2024 Complete blood count with white cell differential, Ramin Young MD Work Phone: start: 39-83-0769Rtqvn cultureAmy Kingsley APRN Work Phone: Start: 48-50-0179Pmzrtmlv blood count with white cell differential, automatedRenita Young MD Work Phone: start: 10-39-2335MQG W/RFX TO QUANT & TP ABS ([facility]) Renita Young MD Work Phone: start: 75-94-9153Knolznp bacterial quanttative colony count urineRenita Young MD Work Phone: start: 51-53-8632VC URINE DRUG SCREEN (NO THC)Renita Young MD Work Phone: start: 48-15-7438Xkeyz dip stick/tablet rgnt auto w/o microscopyRenita Young MD Work Phone: start: 43-44-4691Atqtosl total xcpt refractometry urineRenita Young MD Work Phone: start: 35-98-2590Jlmfxdacmtyihll for antepartum monitoring of fetusAmy Gamboajalil WEBB Work Phone: Start: 74-07-8852TJ URINE DRUG SCREEN (NO THC)Renita Young MD Work Phone: start: 64-83-8616Zriiz dip stick/tablet rgnt auto w/o microscopyRenita Young MD Work Phone: start: 05-85-8904Ztnfc dip stick/tablet rgnt non-auto w/o micrscStaci Young MD Work Phone: start: 90-00-0391Ydadj dip stick/tablet rgnt non-auto w/o micrscStaci Young MD Work Phone: start: 37-01-1927Optdt dip stick/tablet rgnt non-auto w/o micrscpPjaziel Young MD Work Phone: start: 41-35-2199Qbpznyhfqutna agalactiae culture Amy Sancho WEBB Work Phone: Start: 04-27-8933Rfxdy dip stick/tablet rgnt non-auto w/o micrscpPjaziel Young MD Work Phone: start: 59-84-3825Vyxig dip stick/tablet rgnt non-auto w/o micrscStaci Young MD Work Phone: start: 09-39-9883Ktmfm dip stick/tablet rgnt non-auto w/o denverscStaci Young MD Work Phone: start: 30-88-6383Uutva dip stick/tablet rgnt non-auto w/o denverscStaci Young MD Work Phone: start: 75-11-3671Jkjkvevu screenAmy Sancho Comment on above:Result Comment: PERFORMED BY: [place] [address] [address] [place] [address] PATHOLOGIST BUSINESS DATA ANALYST LUZMA ROSA M.D.Start: 89-38-2682FNVFGAE,1 HOUR PP 50GM DOSE ([facility]) Renita Young MD Work Phone: start: 53-76-0046Hozeh dip stick/tablet rgnt non-auto w/o Yobani Young MD Work Phone: start: 75-59-5057Wwesx dip stick/tablet rgnt non-auto w/o micrscStaci Young MD Work Phone: start: 51-94-3785Alkwr dip stick/tablet rgnt non-auto w/o Yobani Young MD Work Phone: start: 76-35-7308Wcuzn dip stick/tablet rgnt non-auto w/o Yobani Young MD Work Phone: start: 59-50-5168Pnjmunodb cultureRenita Young MD Work Phone: start: 47-95-9723Cdovk chlamydia trachomatis amplified probe tqRenita Young MD Work Phone: start: 08-75-9827Zzgrw dip stick/tablet rgnt non-auto w/o Yobani Young MD Work Phone: start: 06-58-7031VJY, APT HPV,RFX 16/18,45Renita Young MD Work Phone: Plan of Treatment DateCare ActivityDetailAuthorStart: 03-29-2025 End: 85-16-0939Xwspvgj encounter kkrwztfmu44/16/2025 2:30 PM EST Office Visit NOMEric Parnell [facility] [address] [place] [address] Renita Young MD [address] [place] [address] [facility]ell OBGYNStart: 74-99-1494Bvfijcram vaccinationInfluenza Vaccine (#1)[facility] HealthcareStart: 11-10-2024 End: 33-14-7257awlphkkddt76/30/2025 1:15 PM EDT Visit [facility] [address] [place] [phone] Renita Young MD [address] [place] [address] N[facility] SWS OBStart: 10-20-2024 End: 89-26-0689ocxojhmypa65/09/2025 9:30 AM EDT Visit [facility] [address] [place] [phone] Renita Young MD [address] [place] [address] care following delivery ([facility]); Acute postoperative painNOMS [facility] OBComment on above: care following delivery ([facility]); Acute postoperative painStart: 75-03-6715FyfqvscdgUniversity Hospitals Parma Medical Centertart: 80-09-9484Natscekh admissionUniversity Hospitals Parma Medical Centertart: 09-30-2024 Extraction of Products of Conception, Low Cervical, Open ApproachExtraction of Products of Conception, Low, Open ApproachUniversity Hospitals St. [facility] Medical Center Start: 59-92-0424Ylmkbnvgkqqa of Other Hormone into Peripheral Vein, Percutaneous ApproachIntroduction of Other Hormone into Peripheral Vein, Percutaneous ApproachFirelands Regional Medical CenterStart: 09-30-2024 Introduction of Other Therapeutic Substance into Female Reproductive, Via Natural or Artificial OpeningIntroduction of Other Therapeutic Substance into Female Reproductive, Via Natural or Artificial OpeningUniversity Hospitals Parma Medical Centertart: 86-99-3249CvcnwayxqUniversity Hospitals Parma Medical Centertart: 09-29-2024 Hospital admissionUniversity Hospitals Parma Medical Centertart: 09-29-2024 End: 66-24-8068Sbnshfd encounter amwuhfbir12/18/2025 10:30 AM EDT Office Visit [facility] [address] [place] [phone] [facility] OBStart: 09-29-2024 End: 87-57-6876Mtrvrkqlkukk / ancillary services mjsmnzadvk74/18/2025 9:30 AM EDT Ancillary Procedure [facility] [address] [place] [phone] [facility] OBStart: 09-21-2024 End: 35-19-1021Nvbbzuk encounter procedureNOMS [facility] OBComment on above:Third trimester ; 37 weeks gestation of ; Vaginal bleeding during ; Intertrigo; Rh negative status during in second trimester; Anemia, unspecified typeStart: 09-14-2024 End: 32-44-4623Qzzfxlh encounter procedureNOMS [facility] OBComment on above:Third trimester ; 36 weeks gestation of ; Intertrigo; Rh negative status during in second trimester; Anemia, unspecified typeStart: 09-08-2024 End: 92-19-8094Piviccv encounter procedureNOMS [facility] OBComment on above:Third trimester ; 36 weeks gestation of ; Intertrigo; Rh negative status during in second trimester; Anemia, unspecified typeStart: 08-31-2024 End: 60-98-9294Djwyffd encounter ratulmmpk20/20/2025 12:30 PM EDT Routine [facility] [address] [place] [phone] Renita Young MD [address] [place] [address] [facility] OBStart: 08-31-2024 End: 52-82-2092Loqejqnqohdr / ancillary services /20/2025 11:00 AM EDT Ancillary Procedure [facility] [address] [place] [address] KNWI [facility] OBStart: 08-17-2024 End: 19-17-6123Csqjzbc encounter procedureNOMS [facility] OBComment on above:Third trimester ; 32 weeks gestation of ; Intertrigo; Rh negative status during in second trimester; Anemia, unspecified typeStart: 08-03-2024 End: 53-97-1118Daebcpv encounter procedureNOMS [facility] OBComment on above:Third trimester ; 30 weeks gestation of ; Intertrigo; Rh negative status during in second trimester; Anemia, unspecified typeStart: 07-13-2024 End: 45-41-6152Xtncemu encounter procedureNOMS [facility] OBComment on above:Second trimester ; 27 weeks gestation of ; Intertrigo; Rh negative status during in second trimesterStart: 06-15-2024 End: 17-46-1916Itonxkahph [Mass/volume] in BloodHemoglobin and hematocrit, blood Lab Routine Screening for diabetes mellitus (DM) Expected: 06/15/2024 (Approximate), Expires: 06/15/2025[facility] Work Phone: comment on above:Expected: 06/15/2024 (Approximate), Expires: 06/15/2025Start: 06-15-2024 End: 39-39-6954Nyokdaeqdsd of glucose 1 hour after glucose challenge for glucose tolerance testGlucose tolerance, 1 hour Lab Routine Screening for diabetes mellitus (DM) Expected: 06/15/2024 (Approximate), Expires: 06/15/2025[facility] HealthcareComment on above:Expected: 06/15/2024 (Approximate), Expires: 06/15/2025Start: 06-15-2024 End: 73-84-5075NMDZDB WORKUP ([facility])RHOGAM WORKUP ([facility]) Lab Routine Rh negative status during in second trimester Encounter for blood typing Expected: 06/15/2024 (Approximate), Expires: 06/15/2025[facility] HealthcareComment on above: Expected: 06/15/2024 (Approximate), Expires: 06/15/2025Start: 06-15-2024 End: 78-83-3222Qcxssgx encounter eaqnaeexk45/04/2025 12:45 PM EST Routine [facility] [address] [place] [address] Renita Young MD [address] [place] [address] [facility] OBStart: 06-15-2024 End: 77-74-8539Zerxinwjfquy / ancillary services ihilzjfrhz78/04/2025 11:45 AM EST Ancillary Procedure [facility] [address] [place] [address] HKNR [facility] OBStart: 05-18-2024 End: 25-60-0713Vruckbs encounter wvqnbqpan11/04/2025 4:00 PM EST Routine [facility] [address] [place] [phone] Renita Young MD [address] [place] [address] [facility] OBStart: 05-18-2024 End: 06-17-6404Malqcjwhggbk / ancillary services qaecfxyvvo74/04/2025 3:30 PM EST Ancillary Procedure [facility] [address] [place] [address] [facility] OBStart: 05-11-2024 End: 59-99-9312Tqgqkdr encounter adxswfpbk48/28/2025 12:45 PM EST Routine [facility] [address] [place] [address] Renita Young MD [address] [place] [address] 18 weeks gestation of ; Second [facility] OBComment on above:18 weeks gestation of ; Second trimester pregnancyStart: 04-27-2024 End: 17-53-3480Qnwjzacjfm(R) Core PanelInheritest(R) Core Panel Lab Routine care, subsequent in first trimester Screening for genetic disease carrier status Expected: 04/27/2024 (Approximate), Expires: 04/27/2025 [facility] Work Phone: comment on above:Expected: 04/27/2024 (Approximate), Expires: 04/27/2025Start: 04-27-2024 End: 61-84-5975Dpkxzubwi 21Maternity 21 Lab Routine care, subsequent in first trimester Screening for genetic disease carrier status Expected: 04/27/2024 (Approximate), Expires: 04/27/2025[facility] HealthcareComment on above:Expected: 04/27/2024 (Approximate), Expires: 04/27/2025Start: 04-27-2024 End: 32-00-4692Vpkxrwh encounter procedureN[facility]S [facility] OBComment on above:16 weeks gestation of ; Second trimester pregnancyStart: 03-29-2024 End: 85-19-4423vrtrtaenmrYNUR SWS OBComment on above:12 weeks gestation of ; Encounter for supervision of normal first in first trimester; Encounter for gynecological examination without abnormal finding; Encounter for screening for cervical cancer; Screen for STD (sexually transmitted disease)Start: 03-25-2024 End: 35-69-0607Avcqvyfknwqi / ancillary services yiytxckxrx69/12/2024 3:30 PM EST Ancillary Procedure [facility] [address] [place] [address] [facility] OBStart: 03-04-2024 End: 23-90-3693Iqbttqeg identified in Urine by CultureUrine culture Microbiology Routine Encounter for supervision of normal first in first trimester Expected: 03/04/2024 (Approximate), Expires: 03/04/2025[facility] HealthcareComment on above:Expected: 03/04/2024 (Approximate), Expires: 03/04/2025Start: 03-04-2024 End: 27-26-0794Tbxdi type and Indirect antibody screen panel - BloodType and screen Lab Routine Encounter for supervision of normal first in first trimester Expected: 03/04/2024 (Approximate), Expires: 03/04/2025[facility] Comment on above:Expected: 03/04/2024 (Approximate), Expires: 03/04/2025Start: 03-04-2024 End: 07-93-2078EMW W Auto Differential panel - BloodCBC and differential Lab Routine Encounter for supervision of normal first in first trimester Expected: 03/04/2024 (Approximate), Expires: 03/04/2025[facility] HealthcareComment on above:Expected: 03/04/2024 (Approximate), Expires: 03/04/2025Start: 03-04-2024 End: 14-15-9126Xtmgxiwzj B virus surface Ag [Presence] in Serum or Plasma by ImmunoassayHepatitis B surface antigen Lab Routine Encounter for supervision of normal first in first trimester Expected: 03/04/2024 (Approximate), Expires: 03/04/2025[facility] HealthcareComment on above:Expected: 03/04/2024 (Approximate), Expires: 03/04/2025Start: 03-04-2024 End: 02-10-3632Kqtunrpot C virus Ab [Presence] in Serum or Plasma by Immunoassay Hepatitis C antibody Lab Routine Encounter for supervision of normal first in first trimester Expected: 03/04/2024 (Approximate), Expires: 03/04/2025[facility] HealthcareComment on above:Expected: 03/04/2024 (Approximate), Expires: 03/04/2025Start: 03-04-2024 End: 31-51-9537GIW-1/HIV-2 antigen/antibody combination immunoassayHIV-1 and HIV-2 antibodies Lab Routine Encounter for supervision of normal first in firsttrimester Expected: 03/04/2024 (Approximate), Expires: 03/04/2025[facility] HealthcareComment on above:Expected: 03/04/2024 (Approximate), Expires: 03/04/2025Start: 03-04-2024 End: 64-89-8600Cijank Ab [Presence] in Serum by RPRRPR Lab Routine Encounter for supervision of normal first in first trimester Expected: 03/04/2024 (Approximate), Expires: 03/04/2025[facility] HealthcareComment on above:Expected: 03/04/2024 (Approximate), Expires: 03/04/2025Start: 03-04-2024 End: 38-40-7951Yvdrume antibody, IgGRubella antibody, IgG Lab Routine Encounter for supervision of normal first in first trimester Expected: 03/04/2024 (Approximate), Expires: 03/04/2025[facility] HealthcareComment on above: Expected: 03/04/2024 (Approximate), Expires: 03/04/2025Start: 03-04-2024 End: 58-85-9796RZXVYQL TEST MISCELLANEOUS LABCORPSENDOUT TEST MISCELLANEOUS [facility] Lab Routine Encounter for supervision of normal first in first trimester Encounter for drug screening Expected: 03/04/2024 (Approximate), Expires: 03/04/2025[facility] HealthcareComment on above:Expected: 03/04/2024 (Approximate), Expires: 03/04/2025Start: 03-04-2024 End: 10-67-1621Zeczsihkrw complete panel - UrineUrinalysis with microscopic Lab Routine Encounter for supervision of normal first in first trimester Expected: 03/04/2024 (Approximate), Expires: 03/04/2025[facility] Work Phone: comment on above:Expected: 03/04/2024 (Approximate), Expires: 03/04/2025Start: 31-69-3624Ezbzmuvfn for malignant neoplasm of cervix [facility] HealthcareStart: 40-51-6686Hnlceapka for malignant neoplasm of cervixPap SmearLAKEVIEW HOSPITAL HealthcareBacteria identified in Urine by CultureUrine culture Microbiology STAT 09/30/2024 8:20 AM [facility] Work Phone: [facility] EducationBl[facility] Work Phone: Patient referralBlanchard Valley Health System [facility] Work Phone: Streptococcus pyogenes Ag [Presence] in Throat by Rapid immunoassayStrep B screen Microbiology Routine screening for streptococcus B Ordered: 08/31/2024[facility] Work Phone: comment on above:Ordered: 08/31/2024[facility] Immunizations Immunization DateImmunizationNotesCare WiikusujQsyvxwxz46-65-9395unawtjgsi virus vaccine, unspecified formulationRenita Young MD Work Phone: [facility] Payers DatePayer CategoryPayerPolicy [id number] CenterBC ..[id number] Medical Center [id number] 2..3.18943[id number] 2..1.830540.3.57[id number] 2..1.498762.3.57[id number] 2..1.671806.3.57[id number] 2..1.218350.3.57[id number] 2..1.478868.3.57[id number] 2..1.650436.3.57[id number] 2.16.840.1.810994.3.57[id number] 2.16.840.1.554488.3.579.[id number] 2.16.840.1.738076.3.579.2.85[id number] 2.16.840.1.682496.3.579.[id number] 2.16.840.1.609007.3.57[id number] 2.16.840.1.072218.3.579.[id number] 2.16.840.1.159243.3.57[id number] 2.16.840.1.723207.3.57[id number] 2.16.840.1.677186.3.57[id number] 2.16.840.1.942210.3.57[id number] 2.16.840.1.116912.3.57[id number] 2.16.840.1.403267.3.57[id number] 2.16.840.1.108845.3.57[id number] 2.16.840.1.313509.3.57[id number] 2.16.840.1.097977.3.57[id number] 2.0.1.878287.3.579.2.694516-44-4606Ddsinzd1745454 2..1.758088.3.579.[id number] 2..1.761210.3.579.[id number] 2..1.386456.3.57[id number] 2..1.150102.3.579.[id number] 2..1.520347.3.579.2.633739-45-8754Wxjb-[id number] 2.0.1.5[id number] 2..1.586370.3.579.2.593Unknown [id number] 2.840.1.8[id number] 2.0.1.29[id number] 2.0.1.902829.3.579.2.531 [id number] 2.0.1.6[id number] 2.0.1.333[id number] 2.0.1.286248.3.579.2.531 Social History DateTypeDetailFacilityStart: 03-04-2024 End: 23-64-9210Zhb Assigned At [facility] Other Start: 02-24-2024 End: 25-98-5473Krablwv smoking status NHISNever smoked tobacco (finding) [facility]: 61-14-4090RjpMefwxj (finding)[facility] Centertart: 57-83-4249Ina Assigned At BirthFeSalem City Hospitaltart: 10-92-3467Bhhugxx use and exposureSmokeless tobacco non-userNOMS HealthcareStart: 03-04-2024 End: 87-99-1645Icnwlwxsg beverage intakeEx-drinker (finding)[facility] Start: 03-04-2024 End: 19-83-7693Vibrknu of Social functionNOAR HealthcareStart: 78-87-1185Marnykc CommentCaffeine intake: 1 soda dailyLAKEVIEW HOSPITAL HealthcareStart: 28-64-9839Qdluxpkto [facility] HealthcareStart: 25-37-0990Fsi assigned at birthNot on [facility] The thought of harming myself has occurred to [facility] HealthcareStart: 48-56-2552CqoCjfvwvTUMQ Healthcare Goals DatePatient GoalDesired Activity/State Functional Status IzqqTidcbmfyagUnwlkqBmcxywxt75-94-6881Rguhyrvqas statusPatient at Baseline [facility] Work Phone: Mental Status SerhNjpvnnkpohAfqqveIpurytqk70-96-6841Kizkxwvdf functionCognitive Status Patient at BaselineTri[facility] Work Phone: Clinical Notes 11-12-2010 to 01-26-2025 Note Date & JyusKurmWzyfqmsx98-71-4963 Telephone encounter Note* Telephone Encounter - Renita Young MD - 01/26/2025 12:45 PM EDT Requests combination pill [facility] CenterHhkhyftnfx73-48-9566 Instructions* Patient Instructions* Renita Young MD - 01/26/2025 12:45 PM EDT Switch to Sprintec and end of pack o documented in this [facility]10-15-2025 Miscellaneous Notes* Telephone Encounter - Renita Young MD - 01/26/2025 12:45 PM EDT Requests combination pill documented in this [facility]09-03-2025 History of Present illness Narrative* Renita Young [...] not recurred. She also reports that her is doing well, sleeping during car rides, [...] Disp: 28 tablet, Rfl: 11 nystatin (Mycostatin) 875084 UNIT/GM powder, Apply topically 3 (three) times [...] Cancer Maternal Grandfather Surinder Cancer Paternal Grandmother Claudia Other (thyroid issues) Paternal Grandmother Norton Heart disease Paternal Grandfather Social History Tobacco [...] reassessment Assessment & Plan documented in this encounterMoberly Regional Medical CenterZmjfbekkjb43-84-1048 History of Present illness Narrative* Renita Young [...] specifically mentioning her desire to return to [email or web address] workouts. She is currently and inquires about [...] split., Disp: 30 tablet,Rfl: 11 nystatin (Mycostatin) 810559 UNIT/GM powder, Apply topically 3 (three) times [...] orders for this visit: care following delivery ([facility]) Acute postoperative pain 40 days exam. [...] scheduled Assessment & Plan documented in this encounterMoberly Regional Medical CenterEhuqirndmq32-28-1198 Instructions* Patient Instructions* Renita Young MD - [...] any other medicines. Also tell your health healthcare customer service if you have any other types of [...] this medication poses minimal risk to the when used during . Substance Name Norethindrone Acetate There are no adequate studies in women for determining risk when using this medication during . [...] to have your eyes checked by an metal pickling equipment operator (eye doctor). Before you have any medical tests, tell the medical doctor in charge that you are taking this medicine. The results of some tests may be affected by this medicine. Do not take other medicines unless they have been discussed with your doctor. This includes prescription or nonprescription (esfg-rnk-zlepluw [OTC]) medicines and herbal (eg, [place]'s wort) or vitamin supplements. Back to top [...] adjusts to the medicine. Also, your health healthcare customer service may be able to tell you about ways to prevent or reduce some of these side effects. Check with your health healthcare customer service if any of the following side effects continue or are bothersome or if you have any questions about them: More common Breast tenderness increased hair growth, especially on the face pimples weight gain Incidence not known Brown, blotchy spots on exposed skin enlarged breasts loss or thinning of the hair mood swings nervousness weight changes documented in this encounterMoberly Regional Medical CenterAbzhxjbvog85-33-7423 History of Present illness Narrative* Renita Young [...] sleep schedule. No specific concerns about the 's health are raised. The patient's obstetric history [...] split., Disp: 30 tablet,Rfl: 11 nystatin (Mycostatin) 345516 UNIT/GM powder, Apply topically 3 (three) times [...] orders for this visit: care following delivery ([facility]) Acute postoperative pain 2 weeks and 5 days exam. Pap smear not done at today's visit. 1. Contraception: none 2. Pt is doing well 3. Follow up in: 4 weeks or as needed. Assessment & Plan documented in this encounterMoberly Regional Medical CenterIxqgezampa32-58-3571 History of Present illness Narrative* Renita Young [...] split., Disp: 30 tablet,Rfl: 11 nystatin (Mycostatin) 959089 UNIT/GM powder, Apply topically 3 (three) times [...] needed. Assessment & Plan documented in this encounterMoberly Regional Medical CenterHjlvscfgey48-03-0476 Evaluation note* Diagnosis Onset Date Resolution Status Admit Date 39 weeks gestation of resolvedJune 2024 8:01amPostpartum examination following delivery resolvedJun2024 8:01am [facility] Work Phone: [phone] 360-200006-18-2025 History of Present illness Narrative* Renita Young [...] all orders for this visit: Third trimester ([facility]) Vaginal bleeding during ([facility]) Intertrigo Rh negative status during in second trimester ([facility]) Anemia, unspecified type 39 weeks gestation of ([facility]) Continue vitamin. Expected mode of delivery VD Follow up in 1 week for a routine visit. L&D for failed BPP Daley score 0 Probable CB Assessment & Plan documented in this [facility]06-18-2025 History of Present illness Narrative* Cristina Preez MA - 09/29/2024 10:30 AM EDT Non-Stress Test heart variability: moderate Heart Rate decelerations: variable acoustic stimulator: no Heart Rate accelerations: yes Baseline FHR: 135 per minute Non-stress Test: reactive Uterine irritability: no Uterine contractions: none Diagnosis Plan 1. 39 weeks gestation of ([facility]) 2. Vaginal bleeding during ([facility]) documented in this [facility]06-10-2025 History of Present illness Narrative* Nora Spivey RN - 09/21/2024 2:45 PM EDT Non-Stress Test 09/21/2024 heart variability: moderate Heart Rate decelerations: variable acoustic stimulator: no Heart Rate accelerations: yes Baseline FHR: 135 per minute Non-stress Test: reactive Uterine contractions: none Diagnosis Plan 1. 37 weeks gestation of 2. Vaginal bleeding during documented in this encounterMoberly Regional Medical CenterFcjlpouahk94-88-8936 History of Present illness Narrative* Renita Young [...] for follow-up next week. documented in this encounterMoberly Regional Medical CenterRoyycrgsnb46-10-4545 History of Present illness Narrative* Nora Spivey RN - 09/14/2024 2:30 PM EDT Non-Stress Test heart variability: moderate Heart Rate decelerations: variable acoustic stimulator: no Heart Rate accelerations: yes Baseline FHR: 125 per minute Non-stress Test: reactive Uterine contractions: none Diagnosis Plan 1. 36 weeks gestation of 2. Vaginal bleeding during documented in this encounterMoberly Regional Medical CenterZfiuynmsxk80-64-6372 History of Present illness Narrative* Renita Young [...] cm NST reactive today documented in this encounterMoberly Regional Medical CenterTavtmmjvhz06-60-7751 History of Present illness Narrative* Renita Young [...] LIG Assessment & Plan documented in this encounterMoberly Regional Medical CenterOiezsysrzz91-39-5644 History of Present illness Narrative* Renita Young [...] to aid cervical ripening documented in this encounterMoberly Regional Medical CenterYubhonolqt93-58-4145 History of Present illness Narrative* Renita Young [...] a) Continue routine care documented in this encounterMoberly Regional Medical CenterFaowizefty11-99-5981 History of Present illness Narrative* Renita Young [...] for more than 4 contractions or painful Couderay Hernandez in an hour, any leakage of [...] appointment in 2 weeks. documented in this [facility]04-01-2025 History of Present illness Narrative* Renita Young [...] offered but declined, opting to purchase an fngs-ocu-vcxiety alternative instead. 2. . She has received [...] management through dietary changes documented in this encounterMoberly Regional Medical CenterYkowfidrsc42-38-3677 History of Present illness Narrative* Renita Young [...] directed per rhogam workup - RHOGAM WORKUP ([facility]); Future Encounter for blood typing - RHOGAM WORKUP ([facility]); Future Continue vitamin. Labs reviewed. Rhogam ordered [...] for a routine visit. documented in this encounterMoberly Regional Medical CenterJghnkyptoi87-84-8784 History of Present illness Narrative* Renita Young [...] bleeding, or leaking fluid documented in this encounterMoberly Regional Medical CenterSkkohjxkju02-22-9664 History of Present illness Narrative* Renita Young [...] a chronic but treatable condition caused by lrvl-jj-jfyj friction and moisture in close body areas. [...] but treatable condition - Cause: Moisture, friction, dsyh-ll-jjhn contact, and excessive sweating - Condition exacerbated [...] appointment in four weeks. documented in this encounterMoberly Regional Medical CenterKkfgldmuvh40-14-3403 History of Present illness Narrative* Renita Young [...] needed throughout the . documented in this encounterMoberly Regional Medical CenterAqcbpzsvtn83-36-1903 History of Present illness Narrative* Renita Young [...] other significant issues. - Plan: a) Recommend tjfo-rpk-grsiuvo Unisom, Vit B6, or maria eugenia candy [...] any questions or concerns. documented in this encounterMoberly Regional Medical CenterPlynffonty91-70-3714 History of Present illness Narrative* Asmita Marti [...] of orders to take with her to [facility] to have drawn today. Appointments scheduled for OBUS 03/25 and with PPJ 03/2903/04/2024 3:05 PM documented in this encounterMoberly Regional Medical CenterDshrzapsak29-90-6576 Evaluation note* Encounter Date Diagnosis Assessment Notes Treatment Notes Treatment Clinical Notes May, Impacted cerumen of left ear (IC D-10 - H61.22) Continue with the kjom-kvp-mwucaqa Flonase nasal spray as directed. Try warm compresses to the ears. Follow-up with your primary care provider if symptoms persist or worsen. You may use xayr-vhf-dsavahh Debroas needed for wax buildup. Patient is [...] bulging noted. Patient encouraged to take any vken-qer-idzyjmk Tylenol or Motrin as needed for discomfort. She can try warm compresses as neededcontinue the Flonase as prescribed. Follow-up with her primary care provider if symptoms persist. [employer] [employer] Other 12-10-2023 Evaluation note* Encounter Date Diagnosis [...] no improvement in 2 to 3 days [employer] [employer] Other 08-01-2011 History general Narrative - Reported* Type Description Date Medical History HS Surgical Uemxqnyqyasewtcswqjrnm96/2011Hospitalization Historysee above Hospitalization HistoryHS flare-hi7430 [employer] Other Evaluation note* Diagnosis Onset Date Resolution Status Admit Date Amenorrhea acuteNovember 2023 2:23pm [facility] Work Phone: Evaluation note* Diagnosis Encounter for [...] acute postoperative pain documented in this encounter [facility] HealthcareEvaluation note* Diagnosis Acute postoperative pain Other acute postoperative pain Incisional pain documented in this encounter [facility] HealthcareEvaluation note* Diagnosis Encounter for contraceptive management, unspecified type- Primary documented in this encounter [facility] HealthcareReason for referral (narrative)No reason for referral information availableBlanchard Valley Health System [facility] Work Phone: Reason for visit Narrative* Maternity Services (Routine) - ClosedSpecialtyDiagnoses / ProceduresReferred By ContactReferred To ContactObstetrics and Gynecology Diagnoses Encounter for supervision of normal first , first trimester Procedures Please check global maternity benefits. CHRISTIAN 10/06/24 Renita Young MD [address] [address] Phone: tel: fax: Renita Young MD [address] [facility] [address] [place] [address] Phone: tel: fax: Referral IDStatusReasonStart DateExpiration DateVisits RequestedVisits [id number] Other / [facility] Healthcare Summary Purpose Family History Relationship [...] and content) DATE CREATED AUTHOR 05/24/2020 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.ReasonCommentsPostpartum CarePatient present for PP care, patient denies any issues or complaints at this time.ReasonCommentsFollow-up Care Teams (unrecognized sec tion and content) Team Status: Active Member Role Status Dates PHYSICIAN NO FAMILY Primary Care Provider Active Team Status: Inactive Member Role Status Dates PHYSICIAN NO FAMILY Primary Care Provider Active Start: February 24, 2024 End: February 24, 2024Amy Kingsley APRN RIPENING ROOM ATTENDANT-CAttending ProviderActive Start: February 24, 2024 End: February 24, 2024Team MemberRelationshipSpecialtyStart DateEnd Date Amy Kingsley NP [address] [place] [address] PCP - GeneralFamily Bssglmez06/21/24Team MemberRelationshipSpecialtyStart [place] [address] [place] [address] PCP - GeneralFamily Ymwoyqsh93/21/24Team MemberRelationshipSpecialtyStart Date End Date Amy Kingsley NP [address] [place] [address] PCP - GeneralFamily Csmdpjzg84/21/24Team MemberRelationshipSpecialtyStart Date End Date Amy Kingsley NP [address] [place] [address] [place] [address] PCP - GeneralFamily Rmzrmqhc02/21/24Team MemberRelationshipSpecialtyStart Date End Date Amy Kingsley NP [address] [place] [address] [place] [address] PCP - GeneralFamily Bwfdsmwe13/21/24Team MemberRelationshipSpecialtyStart Date End Date Amy Kingsley NP [address] [facility] [place] [address] [address] [place] [address] PCP - GeneralFamily Bwrdqgpf01/21/24Team MemberRelationshipSpecialtyStart Date End Date Amy Kingsley NP [address] [facility] [place] [address] [address] PCP - GeneralFamily Rbnexebc07/21/24Team MemberRelationshipSpecialtyStart Date End Date Amy Kingsley NP [address] [facility] [place] [address] [address] [place] [address] PCP - GeneralFamily Zjkgzdxg70/21/24Team MemberRelationshipSpecialtyStart Date End Date Amy Kingsley NP [address] [place] [address] [place] [address] PCP - GeneralFamily Dwdkclbs98/21/24Team MemberRelationshipSpecialtyStart Date End Date Amy Kingsley NP [address] [place] [address] [place] [address] PCP - GeneralFamily Egcvtvcx01/21/24Team MemberRelationshipSpecialtyStart Date End Date Amy Kingsley NP [address] [place] [address] PCP - [facility] Pvmnomzs65/21/24Team MemberRelationshipSpecialtyStart Date End Date Amy Kingsley NP [address] [place] [address] PCP - [facility] [id number]/21/24Team MemberRelationshipSpecialtyStart Date End Date Amy Kingsley NP [address] [place] [address] PCP - [facility]03/04/24Team MemberRelationshipSpecialtyStart Date End Date Amy Kingsley NP [address] [place] [place] [address] PCP - [facility]03/04/24Team MemberRelationshipSpecialtyStart Date End Date Amy Kingsley NP [address] [place] [address] PCP - [facility]03/04/24 Team Status: Active Member Role Status Dates Amy Kingsley APRN RIPENING ROOM ATTENDANT-C Primary Care Provider Active Team Status: Active Member Role Status Dates Amy Kingsley APRN RIPENING ROOM ATTENDANT-C Primary Care Provider Active Start: July 09, [...] Member Role Status Dates Amy Kingsley APRN RIPENING ROOM ATTENDANT-C Primary Care Provider Active Start: September 30, 2024 End: October 04, 2024Renita Young MDAdmit ProviderActiveStart: September 30, 2024 End: October 04, 2024Renita Young MDAttending ProviderActiveStart: September 30, 2024 End: October 04, 2024Natalibryson Buhannahgina , MDReferring ProviderActiveStart: September 30, 2024 End: October 04, 2024 Team Status: Inactive Member Role Status Dates Amy Kingsley APRN RIPENING ROOM ATTENDANT-C Primary Care Provider Active Start: October 06, 2024 End: October 06anthony Rowell MDAttending ProviderActiveStart: October 06, 2024 End: October 06, 2024 Team Status: Inactive Member Role Status Dates Amy Kingsley APRN RIPENING ROOM ATTENDANT-C Primary Care Provider Active Start: October 14, [...] BE BASED ON THE PRIMARY CLINICAL RECORDS. [email or web address] [facility]. provides no warranty or guarantee of the accuracy or completeness of information in this document.
[2025-04-09 08:30] LABS: Hematocrit 41.6 % (36.0-48.0); Hemoglobin 13.1 g/dL (12.0-16.0); Immature Granulocytes Abs Auto 0.08 10^3/uL (0.00-0.03); Immature Granulocytes Pct Auto 0.4 % (0.0-0.5); Lymphocytes Absolute Auto 4.5 10^3/uL (1.2-3.8); Mean Corpuscular HGB Conc 31.5 g/dL (29.9-35.2); Mean Corpuscular Hemoglobin 27.9 pg (26.7-34.0); Mean Corpuscular Volume 88.5 fL (81.0-99.0); Platelet Count 354 10^3/uL (150-450); Red Blood Count 4.70 10^6/uL (4.20-5.40); White Blood Count 18.0 10^3/uL (4.0-11.0)
[2025-04-09 09:12] LABS: Alanine Aminotransferase 438 U/L (14-59); Albumin Globulin Ratio 0.5; Albumin Level 2.5 g/dL (3.4-5.0); Alkaline Phosphatase 259 U/L (46-116); Anion Gap 16.6; Aspartate Amino Transferase 261 U/L (15-37); Blood Urea Nitrogen 11.0 mg/dL (7.0-18.0); Calcium 8.8 mg/dL (8.5-10.1); Carbon Dioxide 22.9 mmol/L (21.0-32.0); Chloride 103 mmol/L (98-107); Cholesterol 114 mg/dL (<=200); Estimated GFR (African America >60 (>=60 mL/min/1.73m^2); Estimated GFR (Non-African Ame >60 (>=60 mL/min/1.73m^2); Globulin 4.6 g/dL; Glucose 112 mg/dL (74-106); HDL Cholesterol 21 mg/dL (40-60); Potassium 4.5 mmol/L (3.5-5.1); Sodium 138 mmol/L (136-145); Total Protein 7.1 g/dL (6.4-8.2); Triglycerides 103 mg/dL (<=150); VLDL CHOLESTEROL 20.6 mg/dL
== END 2025-04-09 08:05 | disposition home or self-care (01) ==
LOC: LAB 08:05
PROVIDERS: PCP Nurse Practitioner Family; Visit Provider Nurse Practitioner Family
DX: Z00.00 Encounter for general adult medical examination without abnormal findings (principal)
CPT/HCPCS: 36415; 80053; 80061; 85025